=== PATIENT | female | born 1925 | race Caucasian/White ===

== ENCOUNTER 2016-08-20 02:17 | Inpatient (IN) | payer OTHER ==
[2016-08-20] VITALS (7 sets, daily range): BP systolic 120–142; BP diastolic 69–84; PULSE 99–145; TEMP 36.4–36.8; O2SAT 90–95; Ht 149.9 cm; Wt 62.0 kg
[~2016-08-20] VITALS: Ht 149.9 cm; Wt 62.0 kg
[~2016-08-20 02:17] MED LIST: CHOL100010 PO; CYAN250T PO; CYM/30 PO; MISCCAP69 PO; MULTTAB52 PO; PREG75CA PO; PRLSR20 PO; TRAM-10 PO
[2016-08-20] MEDS ORDERED: DILTIAZEM HCL 5 MG/ML 5 ML VIAL IV STA ×2 (02:40→09:38)
[2016-08-20 02:51] LABS: COMPLETE YES; EOS % 0.4 %; HEMATOCRIT 44.5 % (37-47); IG% 0.2 %; LYMPH % 17.6 %; LYMPH ABS # 0.98 K/uL (1.2-3.4); MEAN CELL VOLUME 102.1 fL (80-100); MEAN CORPUSCULAR HEMOGLOBIN 35.1 pg (25-34); MEAN CORPUSCULAR HGB CONC 34.4 g/dl (32-36); MEAN PLATELET VOLUME 10.5 fL (7.4-10.4); MONO % 3.4 %; NEUT % 78.4 %; PLATELET COUNT 202 K/uL (130-400); RED BLOOD COUNT 4.36 M/uL (4.2-5.4); WHITE BLOOD COUNT 5.58 K/uL (4.8-10.8)
--- NOTE | 2016-08-20 02:54 | EMERGENCY ROOM VISIT NOTE ---
History Report prepared by Axel: Juwan Monet Under the Supervision of: Dr. Noemi Obrien D.O. First contact with patient: 02:34 Chief Complaint: CARDIAC ASSESSMENT Stated Complaint: SICK IN BELLY,VOMITING History of Present Illness The patient is an 89 year old female who presents to the Emergency Room with complaints of persistent nausea that started at approximately 1800. The patient has experienced multiple episodes of vomiting and shortness of breath today. The patient denies abdominal pain. The patient was having trouble sleeping tonight secondary to her symptoms. The patient denies ever being diagnosed with atrial fibrillation and is not on any blood thinners. She does have a history of CHF for which she is on Lasix. Her baseline leg swelling has not increased, as per her . The patient follows up with Dr. Barbour, [employer]. Source of History: patient, spouse/significant other Onset: 1800 Position: other (GI) Quality: other (nausea) Timing: other (persistent) Associated Symptoms: + SOB, + vomiting, No abdominal pain Review of Systems See HPI for pertinent positives & negatives. A total of 10 systems reviewed and were otherwise negative. Past Medical & Surgical Medical Problems: (1) Acute upper GI bleed (2) Biatrial enlargement (3) Chronic atrial fibrillation (4) Cystocele repair (5) Diastolic heart failure (6) Diverticulosis (7) Hiatal hernia (8) HTN (hypertension) (9) Hypertension (10) Neuropathic arthropathy (11) Nonrheumatic mitral (valve) stenosis (12) Osteoarthritis (13) Osteoporosis (14) Paraesophageal hernia (15) Pulmonary HTN Surgical Problems: (1) H/O knee surgery (2) History of laminectomy (3) History of left shoulder replacement (4) History of partial hysterectomy (5) History of shoulder surgery (6) History of total bilateral knee replacement Family History Stroke Social History Smoking Status: Never Smoker Alcohol Use: none Marital Status: Housing Status: lives with significant other Occupation Status: retired Current/Historical Medications Scheduled Apoaequorin (Prevagen), 1 DROP PO UD Ascorbic Acid (Vitamin C), 1,000 MG PO DAILY Calcium Carbonate-Cholecalcife (Calcium 600+D3 600-800 mg-Unit), 1 TAB PO BID Cholecalciferol (Vitamin D3), 1 TAB PO DAILY Cyanocobalamin (Vitamin B-12), 250 MCG PO DAILY Digoxin (Digoxin), 0.125 MG PO DAILY Docusate Sodium (Colace), 1 CAP PO BID Duloxetine HCl (Cymbalta), 30 MG PO DAILY Isosorbide Mononitrate Ext Rel (Imdur Ext Rel), 30 MG PO QAM Misc Natural Products (Osteo Bi-Flex Joint Shiel), 1 TAB PO DAILY Multiple Vitamins W/ Minerals (Cerovite Senior), 1 TAB PO DAILY Multiple Vitamins W/ Minerals (Preservision Areds 2), 1 CAP PO DAILY Omeprazole (Prilosec), 20 MG PO DAILY Pregabalin (Lyrica), 75 MG PO BID Scheduled PRN Acetaminophen (Tylenol), 650 MG PO Q6 PRN for Pain Furosemide (Lasix), 20 MG PO DAILY PRN for cough,wt gain,edema Allergies Coded Allergies: Penicillins (Verified Allergy, Intermediate, SWELLS, 12/04/15) Sulfa Drugs (Verified Allergy, Intermediate, SWELLS, 12/04/15) Metronidazole (Verified Allergy, Mild, 12/04/15) Quinolones (Verified Allergy, Mild, 12/04/15) Alendronate (Verified Adverse Reaction, Mild, COUGH, 12/04/15) Physical Exam Vital Signs Date Time Temp Pulse Resp B/P Pulse Ox O2 Delivery O2 Flow Rate FiO2 08/20/16 06:21 145 08/20/16 06:02 102 21 123/98 96 Nasal Cannula 2.0 08/20/16 05:22 85 Room Air 08/20/16 05:22 95 Nasal Cannula 2.0 08/20/16 04:51 101 18 138/101 94 Room Air 08/20/16 02:54 103 18 121/87 95 Room Air 08/20/16 02:48 94 Room Air 08/20/16 02:44 119 18 149/131 94 Room Air 08/20/16 02:38 152 08/20/16 02:24 36.4 119 20 140/87 94 Room Air Physical Exam HEENT: Head - normocephalic and atraumatic Pupils are equal, round, and reactive to light. Extraocular eye muscles are intact, and sclera are anicteric. Nose - moist nasal mucosa without discharge. Mouth - moist buccal mucosa. Oropharynx is nonerythematous and there is no tonsillar exudate or edema noted. Neck: Supple; no JVD, nuchal rigidity, cervical lymphadenopathy. Heart: Irregularly irregular rhythm, tachycardic rate. There is a normal S1 and S2 with no murmurs, clicks, or gallops appreciated. Lungs: Clear to auscultation bilaterally with no wheezes, rales, or rhonchi. Abdomen: Soft, completely nontender, nondistended, with good bowel sounds. There are no palpable pulsatile masses or hepatosplenomegaly. There is no guarding, rigidity, or rebound noted. Extremities: No evidence of cyanosis, clubbing, or edema. There are easily palpable peripheral pulses. Skin: warm and dry with good turgor and no rashes. Medical Decision & Procedures ER Provider Diagnostic Interpretation: X-ray results as stated below per interpretation by me. CHEST ONE VIEW PORTABLE: Hiatal hernia, pulmonary vascular congestion. Laboratory Results 08/20/16 02:40 Red Blood Count 4.36, Mean Corpuscular Volume 102.1, Mean Corpuscular Hemoglobin 35.1, Mean Corpuscular Hemoglobin Concent 34.4, Mean Platelet Volume 10.5, Neutrophils (%) (Auto) 78.4, Lymphocytes (%) (Auto) 17.6, Monocytes (%) ( Auto) 3.4, Eosinophils (%) (Auto) 0.4, Basophils (%) (Auto) 0.0, Neutrophils # ( Auto) 4.38, Lymphocytes # (Auto) 0.98, Monocytes # (Auto) 0.19, Eosinophils # ( Auto) 0.02, Basophils # (Auto) 0.00 08/20/16 02:40 Test 08/20/16 02:40 08/20/16 03:45 08/20/16 05:42 White Blood Count 5.58 K/uL (4.8-10.8) Red Blood Count 4.36 M/uL (4.2-5.4) Hemoglobin 15.3 g/dL (12.0-16.0) Hematocrit 44.5 % (37-47) Mean Corpuscular Volume 102.1 fL (80-100) Mean Corpuscular Hemoglobin 35.1 pg (25-34) Mean Corpuscular Hemoglobin Concent 34.4 g/dl (32-36) Platelet Count 202 K/uL (130-400) Mean Platelet Volume 10.5 fL (7.4-10.4) Neutrophils (%) (Auto) 78.4 % Lymphocytes (%) (Auto) 17.6 % Monocytes (%) (Auto) 3.4 % Eosinophils (%) (Auto) 0.4 % Basophils (%) (Auto) 0.0 % Neutrophils # (Auto) 4.38 K/uL (1.4-6.5) Lymphocytes # (Auto) 0.98 K/uL (1.2-3.4) Monocytes # (Auto) 0.19 K/uL (0.11-0.59) Eosinophils # (Auto) 0.02 K/uL (0-0.5) Basophils # (Auto) 0.00 K/uL (0-0.2) RDW Standard Deviation 56.6 fL (36.4-46.3) RDW Coefficient of Variation 15.1 % (11.5-14.5) Immature Granulocyte % (Auto) 0.2 % Immature Granulocyte # (Auto) 0.01 K/uL (0.00-0.02) Prothrombin Time 11.3 SECONDS (9.0-12.0) Prothromb Time International Ratio 1.1 (0.9-1.1) Activated Partial Thromboplast Time 25.7 SECONDS (21.0-31.0) Partial Thromboplastin Ratio 1.0 Anion Gap 12.0 mmol/L (3-11) Est Creatinine Clear Calc Drug Dose 31.5 ml/min Estimated GFR () 58.3 Estimated GFR (Non- 50.3 BUN/Creatinine Ratio 28.4 (10-20) Calcium Level 9.9 mg/dl (8.5-10.1) Total Bilirubin 0.6 mg/dl (0.2-1) Direct Bilirubin 0.2 mg/dl (0-0.2) Aspartate Amino Transf (AST/SGOT) 24 U/L (15-37) Alanine Aminotransferase (ALT/SGPT) 25 U/L (12-78) Alkaline Phosphatase 103 U/L (45-117) Pro-B-Type Natriuretic Peptide 3723 pg/ml (0-1800) Total Protein 8.2 gm/dl (6.4-8.2) Albumin 4.0 gm/dl (3.4-5.0) Thyroid Stimulating Hormone (TSH) 1.980 uIu/ml (0.300-4.500) Gastric Fluid pH 4 Gastric Fluid Occult Blood POS (NEG) Total Creatine Kinase 66 U/L (26-192) Creatine Kinase MB 1.4 ng/ml (0.5-3.6) Creatine Kinase MB Ratio 2.1 (0-3.0) Troponin I < 0.015 ng/ml (0-0.045) Lipase 223 U/L (73-393) Laboratory results per my review. Medications Administered Medications (Trade) Dose Ordered Sig/Cynthia Route Start Time Stop Time Status Last Admin Dose Admin Diltiazem HCl (Cardizem Inj) 10 mg NOW STAT IV 08/20/16 02:40 08/20/16 02:41 DC 08/20/16 02:46 10 MG Ondansetron HCl 4 mg 4 mg NOW STAT IV 08/20/16 04:34 08/20/16 04:35 DC 08/20/16 04:52 4 MG Pantoprazole Sodium 80 mg/ Dextrose 120 ml @ 480 mls/hr ONE STAT IV 08/20/16 05:10 08/20/16 05:24 DC 08/20/16 05:23 480 MLS/HR Pantoprazole Sodium/Dextrose (Protonix Inj/D5 100ml) 100 ml @ 20 mls/hr Q5H IV 08/20/16 05:30 09/19/16 05:29 08/20/16 05:41 20 MLS/HR Procedure Medications administered include Cardizem IV, Zofran IV. ECG Indication: nausea, vomiting Rate (beats per minute): 128 Rhythm: atrial fibrillation (RVR) Findings: ST depression (inferior and lateral), other (RVR) Comparison ECG Date: 05 December 2015 Change: AFib with RVR is new compared to previous. ED Course 0240: Past medical records reviewed. The patient was evaluated in room B6. A complete history and physical exam was performed. A twelve-lead EKG was obtained. An IV lock was initiated and labs are drawn as above. The patient was observing the quality assurance monitor body and pulse oximeter. 0240: Cardizem 10 mg IV. A chest x-ray was performed. 0310: The patient's heart rate has come down to the 90s after Cardizem. 0335: When I went to check on the patient she had vomited a black stuff. She admits that her vomit earlier today was also black. 0338: [facility] The patient will be evaluated. 0408: NG tube in place. The patient is still putting out black stuff and is complaining of nausea. 0434: Zofran 4 mg IV. Medical Decision The patient is an 89 year old female who presents to the ED with nausea. Differential diagnosis includes ACS, cardiac dysrhythmia, acute DE, gastritis, GERD. Laboratory interpretation: Normal white count, stable H&H, BUN 28, creatinine 1 , glucose 163, TSH 1.9, BNP 3723, LFTs normal, cardiac enzymes negative, coagulation studies normal. Gastric occult positive. This is an 89-year-old female patient who developed nausea, weakness and diaphoresis since earlier this evening. The patient vitals revealed that her heart rate was greater than 140. Twelve-lead EKG revealed A. fib with RVR. The patient had initially denied any history of A. fib to me. The patient has A. fib with RVR and upper GI bleeding. She denies any history of GI bleeding. She is hemodynamically stable at this time. [facility] for further management. Consults Time Called: [phone] Consulting Physician: [facility] Returned Call: [phone]: [facility] The patient will be evaluated. Impression Primary Impression: Atrial fibrillation with RVR Additional Impression: GI bleeding Critical Care I have personally spent greater than 30 minutes of critical care time in the direct management of this patient. This includes bedside care, interpretation of diagnostic studies, and testing, discussion with consultants, patient, and family members, and other required patient management activities. This 30 minutes is in excess of all separately billable procedures. Scribe Attestation The scribe's documentation has been prepared under my direction and personally reviewed by me in its entirety. I confirm that the note above accurately reflects all work, treatment, procedures, and medical decision making performed by me. Departure Information Dispostion Being Evaluated By Hospitalist Referrals Brittni Echeverria D.O. (PCP) Patient Instructions My [facility] Problem Qualifiers
[2016-08-20 02:59] LABS: INR 1.1 (0.9-1.1); PROTHROMBIN TIME (PATIENT) 11.3 SECONDS (9.0-12.0)
[2016-08-20] MEDS ORDERED: APOA1CAP PO (03:15)
[2016-08-20] MEDS ORDERED: ISOS30TA3 PO (03:15)
[2016-08-20 03:18] LABS: ALT/SGPT 25 U/L (12-78); AST/SGOT 24 U/L (15-37); BLOOD UREA NITROGEN 28 mg/dl (7-18); BUN/CREATININE RATIO 28.4 (10-20); CALCIUM 9.9 mg/dl (8.5-10.1); CARBON DIOXIDE 31 mmol/L (21-32); CHLORIDE 101 mmol/L (98-107); GLUCOSE 163 mg/dl (70-99); POTASSIUM 3.7 mmol/L (3.5-5.1); SODIUM 144 mmol/L (136-145)
[2016-08-20] MEDS ORDERED: LNX125 PO (03:18)
[2016-08-20] MEDS ORDERED: DOCU-94 PO (03:18)
[2016-08-20] MEDS ORDERED: CALC-449 PO (03:18)
[2016-08-20] MEDS ORDERED: ASCO10003 PO (03:18)
[2016-08-20] MEDS ORDERED: MULT60CA PO (03:18)
[2016-08-20] MEDS ORDERED: FURO-85 PO (03:20)
[2016-08-20] MEDS ORDERED: CHOL1000 PO (03:21)
[2016-08-20] MEDS ORDERED: MISCTAB30 PO (03:21)
[2016-08-20] MEDS ORDERED: ACET-1311 PO (03:21)
[2016-08-20 03:23] LABS: ALKALINE PHOSPHATASE 103 U/L (45-117); CKMB/CK RATIO 2.2 (0-3.0)
[2016-08-20 03:59] LABS: GASTRIC OCCULT BLOOD POS (NEG); GASTRIC OCCULT BLOOD PH 4
[2016-08-20] MEDS ORDERED: ONDANSETRON INJ 2 MG/ML 2 ML VIAL IV STA (04:34)
[2016-08-20] MEDS ORDERED: ONDANSETRON INJ 2 MG/ML 2 ML VIAL IV PRN (05:00)
[2016-08-20] MEDS ORDERED: PANTOprazole INJ 80 MG in DEXTROSE 5% 100ML IV STA (05:10)
--- NOTE | 2016-08-20 05:27 | History and Physical ---
History & Physical Date & Time of Service: Aug 20, 2016 at 05:09 Chief Complaint: Sick In Belly,Vomiting Primary Care Physician: Brittni Echeverria D.O. History of Present Illness Source: patient, family 89 yo F with large paraesophageal hernia presents to the ER with acute bloody vomitus, abdominal pain and nausea that began acutely this everning while at rest. She also reports that along with the abdominal pain, which would precede the vomiting and felt "like a hurt" in the epigastric region, she would get some chest pain that radiated into her L arm. Then she would have a vomiting spell and then she would feel better and the chest pain would resolve. She denies a h/o chest pain and experienced no associated symptoms such as sweating or SOB. She is not very active at baseline, and therefore, cannot tell me if she feels more short of breath than usual. She has a h/o admission last November) for epigastric pain (without the bleeding) and was found to have the hernia mentioned above with a consult by Dr. Gu who recommended monitoring and/or elective repair as an outpatient based on her higher josh- operative risk. She denies any changes in her stools and states that she is constipated at baseline. She denies fevers, chills, headache, sore throat. She denies any alcohol use or NSAID use (including no ASA). She follows with Dr. Barbour for chronic atrial fibrillation and diastolic dysfunction with h/o heart failure in the past. Past Medical/Surgical History Medical Problems: (1) Biatrial enlargement Status: Chronic (2) Chronic atrial fibrillation Status: Chronic (3) Cystocele repair Status: Chronic (4) Diastolic heart failure Status: Chronic (5) Diverticulosis Status: Chronic (6) Hiatal hernia Status: Chronic (7) HTN (hypertension) Status: Chronic (8) Hypertension Status: Chronic (9) Neuropathic arthropathy Status: Chronic (10) Nonrheumatic mitral (valve) stenosis Status: Chronic (11) Osteoarthritis Status: Chronic (12) Osteoporosis Status: Chronic (13) Paraesophageal hernia Status: Chronic (14) Pulmonary HTN Status: Chronic Surgical Problems: (1) H/O knee surgery Status: Resolved (2) History of laminectomy Status: Chronic (3) History of left shoulder replacement Status: Chronic (4) History of partial hysterectomy Status: Chronic (5) History of shoulder surgery Status: Resolved (6) History of total bilateral knee replacement Status: Chronic Family History Stroke Social History Smoking Status: Never Smoker Smokeless Tobacco Use: No Alcohol Use: none Drug Use: none Marital Status: Housing status: lives with significant other Occupational Status: retired Immunizations History of Influenza Vaccine: Yes Influenza Vaccine Date: Apr 10, 2016 History of Tetanus Vaccine?: Yes Tetanus Immunization Date: May 05, 2008 History of Pneumococcal: Yes Pneumococcal Date: Jan 25, 2016 History of Hepatitis B Vaccine: No Multi-Drug Resistant Organisms History of MDRO: No Allergies Coded Allergies: Penicillins (Verified Allergy, Intermediate, SWELLS, 12/04/15) Sulfa Drugs (Verified Allergy, Intermediate, SWELLS, 12/04/15) Metronidazole (Verified Allergy, Mild, 12/04/15) Quinolones (Verified Allergy, Mild, 12/04/15) Alendronate (Verified Adverse Reaction, Mild, COUGH, 12/04/15) Home Medications Scheduled Apoaequorin (Prevagen), 1 DROP PO UD Ascorbic Acid (Vitamin C), 1,000 MG PO DAILY Calcium Carbonate-Cholecalcife (Calcium 600+D3 600-800 mg-Unit), 1 TAB PO BID Cholecalciferol (Vitamin D3), 1 TAB PO DAILY Cyanocobalamin (Vitamin B-12), 250 MCG PO DAILY Digoxin (Digoxin), 0.125 MG PO DAILY Docusate Sodium (Colace), 1 CAP PO BID Duloxetine HCl (Cymbalta), 30 MG PO DAILY Isosorbide Mononitrate Ext Rel (Imdur Ext Rel), 30 MG PO QAM Misc Natural Products (Osteo Bi-Flex Joint Shiel), 1 TAB PO DAILY Multiple Vitamins W/ Minerals (Cerovite Senior), 1 TAB PO DAILY Multiple Vitamins W/ Minerals (Preservision Areds 2), 1 CAP PO DAILY Omeprazole (Prilosec), 20 MG PO DAILY Pregabalin (Lyrica), 75 MG PO BID Scheduled PRN Acetaminophen (Tylenol), 650 MG PO Q6 PRN for Pain Furosemide (Lasix), 20 MG PO DAILY PRN for cough,wt gain,edema Review of Systems All systems were reviewed and negative except as indicated in the HPI Physical Exam Vital Signs Date Time Temp Pulse Resp B/P Pulse Ox O2 Delivery O2 Flow Rate FiO2 2/28/17 04:51 101 18 138/101 94 Room Air 08/20/16 02:54 103 18 121/87 95 Room Air 08/20/16 02:48 94 Room Air 08/20/16 02:44 119 18 149/131 94 Room Air 08/20/16 02:38 152 08/20/16 02:24 36.4 119 20 140/87 94 Room Air GEN: WNWD, in mild distress, alert and appropriate, no increased work of breathing. NGT in place with dark bloody vomitus in suction canister. HEENT: NC/AT, PERRL, normal sclerae CARDIO: tachy, irreg rate, S1/2 heard without m/g/r LUNGS: CTA bilaterally, no crackles, rales or wheezes, good diaphragmatic excursion ABD: soft, TTP in epigastric region, non-distended, no rebound or guarding, +BS EXTREMITY: RP and DP palpable 2+ bilat, no LE swelling or edema, extremities are warm and well-perfused NEURO: CN 2-12 grossly intact, sensation intact throughout MUSC: moves all extremities equally, appears generally weak, no gross focal deficits SKIN: warm and dry Diagnostics Laboratory Results Results Past 24 Hours Test 08/20/16 02:40 08/20/16 03:45 Range/Units White Blood Count 5.58 4.8-10.8 K/uL Red Blood Count 4.36 4.2-5.4 M/uL Hemoglobin 15.3 12.0-16.0 g/dL Hematocrit 44.5 37-47 % Mean Corpuscular Volume 102.1 80-100 fL Mean Corpuscular Hemoglobin 35.1 25-34 pg Mean Corpuscular Hemoglobin Concent 34.4 32-36 g/dl Platelet Count 202 130-400 K/uL Mean Platelet Volume 10.5 7.4-10.4 fL Neutrophils (%) (Auto) 78.4 % Lymphocytes (%) (Auto) 17.6 % Monocytes (%) (Auto) 3.4 % Eosinophils (%) (Auto) 0.4 % Basophils (%) (Auto) 0.0 % Neutrophils # (Auto) 4.38 1.4-6.5 K/uL Lymphocytes # (Auto) 0.98 1.2-3.4 K/uL Monocytes # (Auto) 0.19 0.11-0.59 K/uL Eosinophils # (Auto) 0.02 0-0.5 K/uL Basophils # (Auto) 0.00 0-0.2 K/uL RDW Standard Deviation 56.6 36.4-46.3 fL RDW Coefficient of Variation 15.1 11.5-14.5 % Immature Granulocyte % (Auto) 0.2 % Immature Granulocyte # (Auto) 0.01 0.00-0.02 K/uL Prothrombin Time 11.3 9.0-12.0 SECONDS Prothromb Time International Ratio 1.1 0.9-1.1 Activated Partial Thromboplast Time 25.7 21.0-31.0 SECONDS Partial Thromboplastin Ratio 1.0 Sodium Level 144 136-145 mmol/L Potassium Level 3.7 3.5-5.1 mmol/L Chloride Level 101 98-107 mmol/L Carbon Dioxide Level 31 21-32 mmol/L Anion Gap 12.0 3-11 mmol/L Blood Urea Nitrogen 28 7-18 mg/dl Creatinine 1.00 0.60-1.20 mg/dl Est Creatinine Clear Calc Drug Dose 31.5 ml/min Estimated GFR () 58.3 Estimated GFR (Non- 50.3 BUN/Creatinine Ratio 28.4 10-20 Random Glucose 163 70-99 mg/dl Calcium Level 9.9 8.5-10.1 mg/dl Total Bilirubin 0.6 0.2-1 mg/dl Direct Bilirubin 0.2 0-0.2 mg/dl Aspartate Amino Transf (AST/SGOT) 24 15-37 U/L Alanine Aminotransferase (ALT/SGPT) 25 12-78 U/L Alkaline Phosphatase 103 45-117 U/L Total Creatine Kinase 81 26-192 U/L Creatine Kinase MB 1.8 0.5-3.6 ng/ml Creatine Kinase MB Ratio 2.2 0-3.0 Troponin I < 0.015 0-0.045 ng/ml Pro-B-Type Natriuretic Peptide 3723 0-1800 pg/ml Total Protein 8.2 6.4-8.2 gm/dl Albumin 4.0 3.4-5.0 gm/dl Thyroid Stimulating Hormone (TSH) 1.980 0.300-4.500 uIu/ml Gastric Fluid pH 4 Gastric Fluid Occult Blood POS NEG CXR normal EKG afib with RVR Impression Assessment and Plan 89 yoF with chronic atrial fibrillation presents to the ER with RVR, chest pain , abdominal pain and subsequent dark bloody vomitus. 1. UGIB-likley 2/2 the large paraesophageal hernia or the hiatal hernia that has been problematic for her since last year. Pt not on NSAIDs and doesn't use ETOH. Denies any h/o GI bleed in the past. PPI drip, IVF, two large bore IVs, consult GI service. Type and Cross, trend H/H q6h 2. Atrial fibrillation with RVR-likely 2/2 above process.-Cardizem given in ER. Pt currently NPO so will control the rate with IV drugs for now. 3. Chest pain-rule out ACS, however, more likely pain 2/2 the paraesophageal hernias. ASA contraindicated. Statin is PO and patient is NPO. Trend enyzmes. Consult Cardiology. 4. Abdominal pain 2/2 all of the above. 5. Valvular heart disease 6. Diastolic heart failure-chronic 7. Peripheral neuropathy DVT proph: SCDs Full Code Dispo-to tele floor Stephanie Beard DO Hospitalist Level of Care Telemetry Resuscitation Status FULL RESUSCITATION VTE Prophylaxis VTE Risk Assessment Done? Y/N: Yes Risk Level: Moderate Given or contraindicated: SCD's, Contraindicated
[2016-08-20] MEDS: PANTOprazole INJ 40 MG in DEXTROSE 5% 100ML IV SCH ×4 (05:41→20:25)
[2016-08-20 06:30] LABS: CKMB/CK RATIO 2.1 (0-3.0)
--- NOTE | 2016-08-20 07:28 | DIAGNOSTIC IMAGING REPORT ---
SINGLE VIEW CHEST CLINICAL HISTORY: Nausea. Atrial fibrillation. FINDINGS: An AP, portable, upright chest radiograph is compared to study dated 12/05/2015. The examination is degraded by portable technique and patient rotation. The heart is enlarged and there is atherosclerotic calcification of the thoracic aorta. The mitral annulus is densely calcified. There is pulmonary vascular congestion with mild interstitial edema. Trace pleural effusions are suspected and there is bibasilar atelectasis. No pneumothorax is seen. The skeletal structures are osteopenic. A left shoulder arthroplasty is in place. Advanced arthritic change and chronic deformity is seen in the right shoulder. Advanced degenerative change is also seen in the thoracic spine. Lumbar fusion hardware is partially imaged. There are healed bilateral rib fractures. IMPRESSION: 1. Cardiomegaly with evidence of congestive failure and mild interstitial edema. 2. Suspect trace pleural effusions. Electronically signed by: Maciej Bustillo M.D. 08/20/2016 7:27 AM Dictated Date/Time: 08/20/2016 7:25 AM
[2016-08-20] MEDS: DULOXETINE (CYMBALTA) 30 MG CAP PO SCH (09:00)
[2016-08-20] MEDS: ISOSORBIDE MONONITRATE 30 MG TABCR PO SCH (09:00)
--- NOTE | 2016-08-20 09:14 | Gastrointestinal Consultation ---
Gastrointestinal Consultation Date of Consultation: Aug 20, 2016 Consulting Physician: Jacky Reason for Consultation: GI bleed History of Present Illness Patient is a 89 year old female with past medical history significant for ostearthritis, diverticulosis, pulmonary hypertension, biatrial enlargement, cystocele repair, HTN, gastric outlet obstruction, AFIB and diastolic heart failure. She presented to the ED with abdominal pain and nausea. She reports that last night prior to dinner she was having vague abdominal symptoms and was not feeling well. She was able to eat dinner (crab cake, bread). A few minutes after finishing dinner she had increasing in nausea with associated emesis. is at bedside and reports that the emesis was coffee ground in appearance. She proceeded to have a few more episodes of coffee ground emesis before coming to the ED. At the time of the emesis there was epigastric pain and radiating to her pain and down her arm. These symptoms spontaneously resolved after each bout of emesis. During exam, she has a NG in place. She is no longer experiencing any abdominal symptoms, nausea and vomiting. She denies fever, chills, chest pain, SOB. No ongoing NSAID use. Is on daily PPI as an outpatient EGD 12/05/15: A large paraesophageal hernia was found. The proximal extent of the gastric folds (end of tubular esophagus) was 30 cm from the incisors. The mucosa appeared very normal.The entire examined stomach was normal, although a significant portion was located within the chest. No signs of ischemia.The examined duodenum was normal. Past Medical/Surgical History Medical Problems: (1) Atrial fibrillation with rapid ventricular response Status: Acute (2) Atrial fibrillation with RVR Status: Acute (3) GI bleeding Status: Acute (4) Hypertension Status: Chronic (5) New onset a-fib Status: Acute Family History Stroke Social History Smoking Status: Never Smoker Alcohol Use: none Drug Use: none Marital Status: Housing Status: lives with significant other Occupation Status: retired Allergies Coded Allergies: Penicillins (Verified Allergy, Intermediate, SWELLS, 12/04/15) Sulfa Antibiotics (Verified Allergy, Intermediate, SWELLING, 08/20/16) Metronidazole (Verified Allergy, Mild, 12/04/15) Quinolones (Verified Allergy, Mild, 12/04/15) Alendronate (Verified Adverse Reaction, Mild, COUGH, 12/04/15) Current Medications Home Meds and Scripts Medications Dose Route/Sig Max Daily Dose Days Date Category Tylenol (Acetaminophen) 325 Mg Tab 650 Mg PO Q6 PRN 08/20/16 Reported Vitamin D3 (Cholecalciferol) 1,000 Unit Tab 1 Tab PO DAILY 90 08/20/16 Reported Osteo Bi-Flex Joint Shiel (Misc Natural Products) 1 Tab Tab 1 Tab PO DAILY 08/20/16 Reported Lasix (Furosemide) 20 Mg Tab 20 Mg PO DAILY PRN 08/20/16 Reported Vitamin C (Ascorbic Acid) 1,000 Mg Tab 1,000 Mg PO DAILY 08/20/16 Reported Calcium 600+D3 600-800 mg-Unit (Calcium Carbonate-Cholecalcife) 1 Tab Tab 1 Tab PO BID 08/20/16 Reported Preservision Areds 2 (Multiple Vitamins W/ Minerals) 1 Cap Cap 1 Cap PO DAILY 08/20/16 Reported Digoxin 0.125 Mg Tab 0.125 Mg PO DAILY 08/20/16 Reported Colace (Docusate Sodium) 100 Mg Cap 1 Cap PO BID 30 08/20/16 Reported Prevagen (Apoaequorin) 10 Mg Cap 1 Drop PO UD 08/20/16 Reported Imdur Ext Rel (Isosorbide Mononitrate) 30 Mg Ertab 30 Mg PO QAM 08/20/16 Reported Cerovite Senior (Multiple Vitamins W/ Minerals) 1 Tab Tab 1 Tab PO DAILY 10/30/15 Reported Prilosec (Omeprazole) 20 Mg Capcr 20 Mg PO DAILY 10/30/15 Reported Cymbalta (Duloxetine HCl) 30 Mg Cap 30 Mg PO DAILY 10/30/15 Reported Lyrica (Pregabalin) 75 Mg Cap 75 Mg PO BID 10/30/15 Reported Vitamin B-12 (Cyanocobalamin) 250 Mcg Tab 250 Mcg PO DAILY 10/30/15 Reported Review of Systems Constitutional: No chills, No fever Respiratory: No cough, No shortness of breath Cardiac: No chest pain, No edema Abdomen: + GI bleeding, No constipation, No diarrhea, No nausea, No pain, No vomiting Physical Exam Date Time Temp Pulse Resp B/P Pulse Ox O2 Delivery O2 Flow Rate FiO2 08/20/16 08:14 138 20 125/96 96 08/20/16 08:05 134 20 125/96 96 Room Air 08/20/16 06:21 145 08/20/16 06:02 102 21 123/98 96 Nasal Cannula 2.0 08/20/16 05:22 85 Room Air 08/20/16 05:22 95 Nasal Cannula 2.0 08/20/16 04:51 101 18 138/101 94 Room Air 08/20/16 02:54 103 18 121/87 95 Room Air 08/20/16 02:48 94 Room Air 08/20/16 02:44 119 18 149/131 94 Room Air 08/20/16 02:38 152 08/20/16 02:24 36.4 119 20 140/87 94 Room Air General Appearance: no apparent distress Eyes: PERRL, EOMI ENT: hearing grossly normal Neck: supple, trachea midline Respiratory/Chest: lungs clear, normal breath sounds, no respiratory distress Cardiovascular: regular rate, rhythm, no edema, no gallop, no JVD Abdomen: normal bowel sounds, non tender, soft, no organomegaly, no pulsatile mass Neurologic/Psych: alert, normal mood/affect, oriented x 3 Skin: normal color, no jaundice Laboratory Results Last 24 Hours Test 08/20/16 02:40 08/20/16 03:45 08/20/16 05:42 08/20/16 08:16 White Blood Count 5.58 K/uL Red Blood Count 4.36 M/uL Hemoglobin 15.3 g/dL Hematocrit 44.5 % Mean Corpuscular Volume 102.1 fL Mean Corpuscular Hemoglobin 35.1 pg Mean Corpuscular Hemoglobin Concent 34.4 g/dl Platelet Count 202 K/uL Mean Platelet Volume 10.5 fL Neutrophils (%) (Auto) 78.4 % Lymphocytes (%) (Auto) 17.6 % Monocytes (%) (Auto) 3.4 % Eosinophils (%) (Auto) 0.4 % Basophils (%) (Auto) 0.0 % Neutrophils # (Auto) 4.38 K/uL Lymphocytes # (Auto) 0.98 K/uL Monocytes # (Auto) 0.19 K/uL Eosinophils # (Auto) 0.02 K/uL Basophils # (Auto) 0.00 K/uL RDW Standard Deviation 56.6 fL RDW Coefficient of Variation 15.1 % Immature Granulocyte % (Auto) 0.2 % Immature Granulocyte # (Auto) 0.01 K/uL Prothrombin Time 11.3 SECONDS Prothromb Time International Ratio 1.1 Activated Partial Thromboplast Time 25.7 SECONDS Partial Thromboplastin Ratio 1.0 Sodium Level 144 mmol/L Potassium Level 3.7 mmol/L Chloride Level 101 mmol/L Carbon Dioxide Level 31 mmol/L Anion Gap 12.0 mmol/L Blood Urea Nitrogen 28 mg/dl Creatinine 1.00 mg/dl Est Creatinine Clear Calc Drug Dose 31.5 ml/min Estimated GFR () 58.3 Estimated GFR (Non- 50.3 BUN/Creatinine Ratio 28.4 Random Glucose 163 mg/dl Calcium Level 9.9 mg/dl Total Bilirubin 0.6 mg/dl Direct Bilirubin 0.2 mg/dl Aspartate Amino Transf (AST/SGOT) 24 U/L Alanine Aminotransferase (ALT/SGPT) 25 U/L Alkaline Phosphatase 103 U/L Total Creatine Kinase 81 U/L 66 U/L Creatine Kinase MB 1.8 ng/ml 1.4 ng/ml Creatine Kinase MB Ratio 2.2 2.1 Troponin I < 0.015 ng/ml < 0.015 ng/ml Pro-B-Type Natriuretic Peptide 3723 pg/ml Total Protein 8.2 gm/dl Albumin 4.0 gm/dl Thyroid Stimulating Hormone (TSH) 1.980 uIu/ml Gastric Fluid pH 4 Gastric Fluid Occult Blood POS Lipase 223 U/L Test 08/20/16 09:00 Impression Patient is a 89 year old female with paraesophageal hernia who presented to the ED with nausea, abdominal pain and coffee ground emesis. Differentials include gastritis, esophagitis, [place] ulcers ETC Plan NPO Continue Protonix 40 mg twice daily I have seen and evaluated the patient. She presented with several days of epigastric discomfort culminating in coffee-ground emesis yesterday evening. The patient has a history of intrathoracic stomach and is previously been evaluated by . She notes that since her last admission she been doing well until overeating earlier this week. She notes that her symptoms are much improved since admission and placement of the NG tube. 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 This is the most likely etiology to her coffee-ground emesis and recurrent symptoms. As there has been limited drop in her hematocrit and her symptoms are improved I 'm not certain if repeat upper endoscopy is needed at this time. We will reevaluate in the morning to determine if this should be performed. I would suggest that the patient be seen by cardiothoracic surgery to determine if surgical intervention is possible at this hospital as this is the likely etiology to her recurrent symptoms and will likely progress. Recommendations Nothing by mouth Protonix 40 mg twice daily Cardiothoracic consultation Will consider upper endoscopy if felt needed by cardiothoracic surgery or if there is a significant decline in her hematocrit during the hospitalization.
[2016-08-20] MEDS ORDERED: NSS + 20MEQ KCL 1000ML 1,000 ML IV SCH (09:25)
[2016-08-20] MEDS: PREGABALIN 75 MG CAP PO SCH ×2 (09:30→20:39)
[2016-08-20 09:38] LABS: HEMATOCRIT 41.6 % (37-47)
[2016-08-20] MEDS ORDERED: DILTIAZEM HCL 5 MG/ML 5 ML VIAL ONE (09:53)
--- NOTE | 2016-08-20 09:57 | Progress Note ---
Medicine Progress Note Date & Time of Visit: Aug 20, 2016 at 09:51. Subjective patient seen resting in bed, comfortable A fib in RVR HR 120s asymptomatic denies chest pain, dyspnea, dizziness, palpitations no abdominal pain, nausea tolerating NG tube denies other symptoms Objective Last 8 Hrs Date Time Temp Pulse Resp B/P Pulse Ox O2 Delivery O2 Flow Rate FiO2 08/20/16 09:11 36.4 121 18 120/79 95 Nasal Cannula 2.0 08/20/16 08:57 36.4 145 18 120/79 95 Nasal Cannula 2.0 08/20/16 08:14 138 20 125/96 96 08/20/16 08:05 134 20 125/96 96 Room Air 08/20/16 06:21 145 08/20/16 06:02 102 21 123/98 96 Nasal Cannula 2.0 08/20/16 05:22 85 Room Air 08/20/16 05:22 95 Nasal Cannula 2.0 08/20/16 04:51 101 18 138/101 94 Room Air 08/20/16 02:54 103 18 121/87 95 Room Air 08/20/16 02:48 94 Room Air 08/20/16 02:44 119 18 149/131 94 Room Air 08/20/16 02:38 152 08/20/16 02:24 36.4 119 20 140/87 94 Room Air Physical Exam: General- oriented x 3, not in distress Head- atraumatic Eyes- anicteric ENT- oropharynx clear Neck- supple, no JVD, no adenopath Lungs- mild rales bilateral bases, no wheezing Heart- tachycardic, irregularly irregular rhythm; no murmurs Abdomen- normal bowel sounds, non distended, soft, nontender Extremities- no pretibial edema, no calf tenderness Neuro- alert, oriented x 3; no gross deficits Skin- warm & dry Laboratory Results: Last 24 Hours Test 08/20/16 02:40 08/20/16 03:45 08/20/16 05:42 08/20/16 08:16 White Blood Count 5.58 K/uL Red Blood Count 4.36 M/uL Hemoglobin 15.3 g/dL Hematocrit 44.5 % Mean Corpuscular Volume 102.1 fL Mean Corpuscular Hemoglobin 35.1 pg Mean Corpuscular Hemoglobin Concent 34.4 g/dl Platelet Count 202 K/uL Mean Platelet Volume 10.5 fL Neutrophils (%) (Auto) 78.4 % Lymphocytes (%) (Auto) 17.6 % Monocytes (%) (Auto) 3.4 % Eosinophils (%) (Auto) 0.4 % Basophils (%) (Auto) 0.0 % Neutrophils # (Auto) 4.38 K/uL Lymphocytes # (Auto) 0.98 K/uL Monocytes # (Auto) 0.19 K/uL Eosinophils # (Auto) 0.02 K/uL Basophils # (Auto) 0.00 K/uL RDW Standard Deviation 56.6 fL RDW Coefficient of Variation 15.1 % Immature Granulocyte % (Auto) 0.2 % Immature Granulocyte # (Auto) 0.01 K/uL Prothrombin Time 11.3 SECONDS Prothromb Time International Ratio 1.1 Activated Partial Thromboplast Time 25.7 SECONDS Partial Thromboplastin Ratio 1.0 Sodium Level 144 mmol/L Potassium Level 3.7 mmol/L Chloride Level 101 mmol/L Carbon Dioxide Level 31 mmol/L Anion Gap 12.0 mmol/L Blood Urea Nitrogen 28 mg/dl Creatinine 1.00 mg/dl Est Creatinine Clear Calc Drug Dose 31.5 ml/min Estimated GFR () 58.3 Estimated GFR (Non- 50.3 BUN/Creatinine Ratio 28.4 Random Glucose 163 mg/dl Calcium Level 9.9 mg/dl Total Bilirubin 0.6 mg/dl Direct Bilirubin 0.2 mg/dl Aspartate Amino Transf (AST/SGOT) 24 U/L Alanine Aminotransferase (ALT/SGPT) 25 U/L Alkaline Phosphatase 103 U/L Total Creatine Kinase 81 U/L 66 U/L Creatine Kinase MB 1.8 ng/ml 1.4 ng/ml Creatine Kinase MB Ratio 2.2 2.1 Troponin I < 0.015 ng/ml < 0.015 ng/ml Pro-B-Type Natriuretic Peptide 3723 pg/ml Total Protein 8.2 gm/dl Albumin 4.0 gm/dl Thyroid Stimulating Hormone (TSH) 1.980 uIu/ml Gastric Fluid pH 4 Gastric Fluid Occult Blood POS Lipase 223 U/L Test 08/20/16 09:15 08/20/16 09:30 Hemoglobin 14.1 g/dL Hematocrit 41.6 % Assessment & Plan 89 yoF with CHF Diastolic Type, A fib not on anticoagulation, HTN, presents to the ER with RVR, chest pain, abdominal pain and subsequent dark bloody vomitus. POSSIBLE UPPER GI BLEED IN THE SETTING OF PARAESOPHAGEAL AND HIATAL HERNIA - BP stable so far Hg being monitored - Protonix Drip NPO - GI consulted: for EGD today appreciate the recommendations CHRONIC ATRIAL FIBRILLATION, IN RVR - usually on Digoxin not on anticoagulation - asymptomatic, Bp stable - another Diltiazem 10mg IV dose ordered - Music Coordinator consulted CHEST PAIN R/O ACS - 2nd cardiac markers negative CHRONIC DIASTOLIC CHF - compensated monitor DVT proph: SCDs Dispo Pending Current Inpatient Medications: Current Inpatient Medications Medications (Trade) Dose Ordered Sig/Cynthia Route Start Time Stop Time Status Last Admin Dose Admin Ondansetron HCl (Zofran Inj) 4 mg Q6H PRN IV 08/20/16 05:00 09/19/16 04:59 Future hold Digoxin (Lanoxin Tab) 0.125 mg DAILY@1600 PO 08/20/16 16:00 09/19/16 15:59 Duloxetine HCl (Cymbalta Cap) 30 mg DAILY PO 08/20/16 09:00 09/19/16 08:59 Isosorbide Mononitrate (Imdur Ext Rel Tab) 30 mg QAM PO 08/20/16 09:00 09/19/16 08:59 Pregabalin 75 mg 75 mg BID PO 08/20/16 09:00 09/19/16 08:59 Pantoprazole Sodium 40 mg/ Dextrose 100 ml @ 20 mls/hr Q5H IV 08/20/16 05:30 09/19/16 05:29 08/20/16 05:41 20 MLS/HR Potassium Chloride/Sodium Chloride (Nss + 20meq KCl 1000ml) 1,000 ml @ 100 mls/hr Q10H IV 08/20/16 09:25 08/20/16 19:24 Diltiazem HCl (Cardizem Inj) 10 mg NOW STAT IV 08/20/16 09:38 08/20/16 09:39 UNV
[2016-08-20] MEDS ORDERED: METOPROLOL TARTRATE 1 MG/ML VIAL IV STA (10:07)
[2016-08-20 10:12] LABS: URINE APPEARANCE CLOUDY (CLEAR); URINE BILIRUBIN NEG (NEG); URINE COLOR YELLOW; URINE EPITHELIAL CELL AUTO 0-5 /lpf (0-5); URINE NITRITE NEG (NEG); URINE PH 7.5 (4.5-7.5); URINE SPECIFIC GRAVITY 1.015 (1.000-1.030); UROBILINOGEN NEG (NEG)
[2016-08-20] MEDS ORDERED: METOPROLOL TARTRATE 1 MG/ML VIAL ONE (10:14)
[2016-08-20] MEDS ORDERED: DILTIAZEM HCL INJ 10 MG in SYRINGE 0 ML IV ONE (10:30)
[2016-08-20 10:37] LABS: MANUAL MICROSCOPIC REQUIRED? NO; REVIEW REQ? NO; SULFASALICYLIC ACID NEG (NEG)
--- NOTE | 2016-08-20 10:53 | Progress Note ---
Progress Note Date of Service Aug 20, 2016. Progress Note The case was cancelled due to an EKG of A-Fib with a rapid ventricular response and ST depressions.
--- NOTE | 2016-08-20 11:26 | CARDIOLOGY CONSULTATION ---
DATE OF CONSULTATION: 08/20/2016 The patient seen and examined on 08/20/2016. REFERRING PHYSICIAN: Dr. Beard. INDICATIONS: Atrial fibrillation with elevated ventricular response rate. HISTORY OF PRESENT ILLNESS: The patient is an 89-year-old female whose past medical history is notable for large paraesophageal hernia with intermittent gastric outflow obstruction. History of chronic atrial fibrillation, past diastolic heart failure, hypertension, who presented to the Emergency Room on date of admission 08/20/2016. Noted that she began having symptoms of abdominal pain and nausea after excessive "eating over the weekend." Symptoms were described as severe pain in the epigastric area with associated nausea and bloody vomitus. On presentation to the Emergency Room, she was found to be in her chronic atrial fibrillation, though with elevated ventricular response rate. She did receive a single dose of IV diltiazem in the ER with slowing of heart rate. She is referred now for further management with patient in atrial fibrillation, rates 110-125. She anticipates EGD later today for evaluation of paraesophageal hernia and emesis. Initial cardiac enzymes are negative. She is currently comfortable. Notes no chest pain or discomfort. Notes no chest pain, but did have abdominal pain as described. Notes no fevers, chills or productive cough. Atrial fibrillation is of a relatively recent description with rates controlled with low dose digoxin. She denies any bradyarrhythmias, syncope or near syncope. Notes no unexplained fevers or infections. The patient attended by family members who notes she did have a "big weekend of multiple meals" well beyond her usual intake. She has not been aware of any dark black stools or blood in the stools. Notes no headache or visual changes. REVIEW OF SYSTEMS: Otherwise negative. ALLERGIES: ALENDRONATE, METRONIDAZOLE, PENICILLIN, QUINOLONES AND SULFA. MEDICATIONS PRIOR TO HOSPITALIZATION: Vitamin C 1000 mg p.o. every day, calcium carbonate 1 tablet b.i.d., vitamin D3 of 1000 units every day, vitamin B12 of 250 mcg p.o. every day, digoxin 0.125 mg p.o. every day, Cymbalta 30 mg p.o. daily, furosemide 20 mg daily p.r.n. edema, isosorbide mononitrate 30 mg p.o. day, multivitamin per day, omeprazole 20 mg p.o. every day, Lyrica 75 mg b.i.d. PAST SURGICAL HISTORY: Notable for prior knee surgeries, prior laminectomy, left shoulder replacement, hysterectomy, bilateral total knee replacements. FAMILY HISTORY: Positive for stroke. SOCIAL HISTORY: The patient is a nonsmoker, nondrinker. PHYSICAL EXAMINATION: VITAL SIGNS: On current examination, heart rate is 120, blood pressure is 120/79. O2 saturations are 95% on 2 liters. She is currently comfortable without complaint. NG tube is in place. HEENT: Normocephalic, atraumatic. NECK: Thin. There is no distinct jugular venous distention. LUNGS: Generally clear to auscultation. CARDIOVASCULAR: Irregular, irregular with rapid ventricular response rate. There is no S3 gallop. ABDOMEN: Soft. There is minimal upper epigastric tenderness. There is no rebound or guarding. EXTREMITIES: Without cyanosis or clubbing. There is no peripheral edema. DATA: EKG on presentation reveals atrial fibrillation with rapid ventricular response, rate 128, inferolateral nonspecific ST segment changes. LABORATORY STUDIES: White cell count is 5.8, hemoglobin is 14.1. Sodium is potassium 3.7, chloride is 101, bicarbonate is 31, BUN is 28, creatinine is 1.0, troponin I on 2 serial testings is less than 0.015. BNP is mildly elevated at 37/23. TSH is 1.98. Chest x-ray reveals mild increase in interstitial markings and cardiomegaly. Echocardiogram per last review at [facility] was performed in November of 2015, which demonstrated moderate left ventricular hypertrophy, normal left ventricular systolic function, mild aortic stenosis, mild aortic insufficiency. IMPRESSION: An 89-year-old female with complex history of large paraesophageal hernia with intermittent gastric outlet obstruction, presents now with abdominal complaints and symptoms of emesis, possible hematemesis. She has a history of atrial fibrillation and rates are significantly elevated with acute distressors. PLAN: Will add IV metoprolol to regimen. The patient remains a poor anticoagulation candidate. Will continue oral digoxin when able. Use IV metoprolol for rate control. Echocardiogram will be ordered to reassess LV function and valvular structures. X-ray does show mild increase in interstitial markings, though rate is likely driving this issue. No signs of acute myocardial ischemia at this time. Exam does not reflect acute volume overload. Suspect a component of diastolic heart failure though would not administer diuretics at this time given n.p.o. status and past history of difficulties with hypotension and association with such. Will follow the patient as clinical course proceeds. Agree with EGD later today. MTDD
[2016-08-20] MEDS ORDERED: METOPROLOL TARTRATE 1 MG/ML VIAL IV. SCH (12:00)
[2016-08-20 12:33] LABS: CKMB/CK RATIO 2.6 (0-3.0)
[2016-08-20] MEDS: DIGOXIN 0.125 MG TAB PO SCH (15:35)
[2016-08-20] MEDS ORDERED: NURSING VERBAL MED ORDER ONE (15:45)
--- NOTE | 2016-08-20 16:15 | ECHOCARDIOGRAM REPORT ---
*NOTICE TO RECEIVING DEMOCRAT AGENCY This information is strictly Confidential and protected under [place] law. [place] law prohibits you from making any further disclosure of this information unless further disclosure is expressly permitted by the written consent of the person to whom it pertains or is authorized by law. A general authorization for the release of medical or other information is not sufficient for this purpose. Hospital accepts no responsibility if the information is made available to any other person, INCLUDING THE PATIENT. Interpretation Summary * Name: BONY [id number] Study Date: 08/20/2016 03:05 PM BP: 117/74 mmHg * Patient Location: [facility]\S\[id number] HR: 107 * : 1925 (M/d/yyyy) Gender: Female Height: 59 in * Age: 89 yrs Ethnicity: [place] Weight: 140 lb * Ordering Physician: Galen Diez * Referring Physician: Self, Referred * Performed By: Jenny Osman RDCS * * Reason For Study: AFIB * BSA: 1.6 m2 * History: AFIB * The study was technically adequate. * Compared to prior study, changes are noted. * -- Conclusions -- * The rhythm is atrial fibrillation with rapid ventricular response. * Ejection Fraction = 50-55%. * The left atrium is severely dilated. * The aortic valve is moderately calcified. * Mild valvular aortic stenosis. * There is severe mitral annular calcification. * There is mild mitral regurgitation. * There is severe tricuspid regurgitation. * Right ventricular systolic pressure is elevated at 40-50mmHg. Procedure Details * A complete two-dimensional transthoracic echocardiogram was performed (2D, M-mode, Doppler and color flow Doppler). Left Ventricle * The left ventricle is normal in size. * The rhythm is atrial fibrillation with rapid ventricular response. * There is mild concentric left ventricular hypertrophy. * Ejection Fraction = 50-55%. * Left ventricular systolic function is normal. * The left ventricular wall motion is normal. Right Ventricle * The right ventricle is normal size. * The right ventricular systolic function is normal as assessed by tricuspid annular plane systolic excursion (TAPSE) (normal >1.5 cm). Atria * The left atrium is severely dilated. * The right atrium is mildly dilated. * There is no evidence of atrial septal defect, but resolution does not allow assessment for a patent foramen ovale. Mitral Valve * There is severe mitral annular calcification. * There is no mitral valve stenosis. * There is mild mitral regurgitation. Tricuspid Valve * The tricuspid valve is normal. * There is no tricuspid stenosis. * There is severe tricuspid regurgitation. * Right ventricular systolic pressure is elevated at 40-50mmHg. Aortic Valve * The aortic valve is trileaflet. * The aortic valve is moderately calcified. * Mild valvular aortic stenosis. * There is no significant aortic regurgitation. Pulmonic Valve * The pulmonary valve is inadequately visualized, but the Doppler data is adequate for interpretation. * There is no pulmonic valvular stenosis. * Mild pulmonic valvular regurgitation. Great Vessels * The aortic root is normal size. Pericardium/Pleural * There is no pericardial effusion. Great Vessels * Normal inferior vena cava diameter and respiratory variation suggests normal central venous pressure. Left Ventricular Diastolic Function * Pulse wave TDI of the anterior and posterior mitral annulas demonstrates abnormal LV relaxation MMode 2D Measurements and Calculations IVSd 10 cm IVSs 1.4 cm LVIDd 3.6 cm LVIDs 2.6 cm LVPWd 1.4 cm LVPWs 1.4 cm IVS/LVPW 0.74 FS 28.3 % EDV(Teich) 54.6 ml ESV(Teich) 24.2 ml EF(Teich) 55.6 % EDV(cubed) 46.8 ml ESV(cubed) 17.3 ml EF(cubed) 63.1 % % IVS thick 35.3 % % LVPW thick 4.1 % LV mass(C)d 137.2 grams LV mass(C)dI 86.6 grams/m\S\2 LV mass(C)s 113.1 grams LV mass(C)sI 71.4 grams/m\S\2 SV(Teich) 30.3 ml SI(Teich) 19.1 ml/m\S\2 SV(cubed) 29.5 ml SI(cubed) 18.6 ml/m\S\2 LVAd ap4 18.5 cm\S\2 LVLd ap4 6.0 cm EDV(MOD-sp4) 46.3 ml EDV(sp4-el) 47.9 ml LVAs ap4 12.1 cm\S\2 LVLs ap4 5.2 cm ESV(MOD-sp4) 23.4 ml ESV(sp4-el) 24.1 ml EF(MOD-sp4) 49.5 % EF(sp4-el) 49.8 % SV(MOD-sp4) 22.9 ml SI(MOD-sp4) 14.5 ml/m\S\2 SV(sp4-el) 23.9 ml SI(sp4-el) 15.1 ml/m\S\2 Doppler Measurements and Calculations Ao V2 max 191.5 cm/sec Ao max PG 14.7 mmHg Ao max PG (full) 12.8 mmHg Ao V2 mean 129.7 cm/sec Ao mean PG 7.6 mmHg Ao mean PG (full) 6.5 mmHg Ao V2 VTI 32.4 cm LV V1 max PG 1.9 mmHg LV V1 mean PG 1.2 mmHg LV V1 max 68.6 cm/sec LV V1 mean 51.2 cm/sec LV V1 VTI 13.5 cm TR max azael 304.9 cm/sec
[2016-08-20 16:22] LABS: HEMATOCRIT 42.6 % (37-47)
[2016-08-20] MEDS: METOPROLOL TARTRATE 1 MG/ML VIAL IV. SCH ×2 (17:21→23:12)
--- NOTE | 2016-08-20 19:04 | DIAGNOSTIC IMAGING REPORT ---
CT OF THE CHEST WITHOUT IV CONTRAST CLINICAL HISTORY: Epigastric pain. Possible gastric torsion. COMPARISON STUDY: CT scan of the abdomen pelvis dated 12/04/2015 CT DOSE: TECHNIQUE: CT of the thorax was performed from the thoracic inlet to the lung bases. Images are reviewed in the axial, sagittal, and coronal planes. IV contrast was not administered for this examination. FINDINGS: Thyroid: Imaged portions of the thyroid gland are normal in appearance. Thoracic aorta: The thoracic aorta is normal in course and caliber, noting standard 3 vessel arch anatomy. Heart: The heart is enlarged. There are coronary artery calcifications. Lungs and pleural spaces: There is a trace left pleural effusion. There are left lower lobe atelectatic changes. Peripheral opacities within the right lower lobe, are also likely atelectatic. There is a 2.5 mm right upper lobe pulmonary nodule. This is of doubtful clinical significance given the patient's age Mediastinum: There is no evidence of pathologic mediastinal lymphadenopathy. Rahda: There is no evidence of pathologic hilar lymphadenopathy given the limitations of a noncontrast study. Axilla: There is no evidence of pathologic axillary lymphadenopathy. Upper abdomen: There is an intrathoracic stomach, similar to the prior study. There is indwelling nasogastric tube. Skeletal structures: There are advanced degenerative changes present within the gastric spine. IMPRESSION: 1. 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 2. Nasogastric tube 3. No evidence of pathologic adenopathy 4. Basilar atelectatic changes Electronically signed by: Monty Lord M.D. 08/20/2016 7:02 PM Dictated Date/Time: 08/20/2016 6:57 PM
--- NOTE | 2016-08-20 19:12 | DIAGNOSTIC IMAGING REPORT ---
CT ABDOMEN NO IV/ORAL CONT (CT) CT DOSE: 334.24 mGy.cm CLINICAL HISTORY: Abdominal pain. Possible gastric torsion. TECHNIQUE: Imaging was performed without intravenous or oral contrast. COMPARISON STUDY: 1316 FINDINGS: The visualized portions the lung bases reveal a hiatal hernia with intrathoracic stomach. There is indwelling nasogastric tube. There is a possible organoaxial volvulus. There are bibasilar opacities, statistically atelectatic. No space-occupying hepatic masses are visualized on this noncontrast study. No gallbladder abnormalities are visualized. The spleen is not enlarged. No pancreatic lesions are visualized in this noncontrast study. There is adrenal gland thickening. No renal, ureteral, or bladder calculi are visualized. There is fecal retention. There are postsurgical changes present within the spine. There is a trace left pleural effusion. IMPRESSION: 1. Hiatal hernia with intrathoracic stomach. 2. 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 3. Indwelling nasogastric tube 4. No hepatic splenic or pancreatic gallbladder or renal abnormalities are visualized on this noncontrast study. Electronically signed by: Monty Lord M.D. 08/20/2016 7:10 PM Dictated Date/Time: 08/20/2016 7:06 PM
[2016-08-20] MEDS ORDERED: ZOLPIDEM TARTRATE 5 MG TAB PO PRN (20:15)
--- NOTE | 2016-08-20 21:40 | SURGICAL CONSULTATION ---
DATE OF CONSULTATION: 08/20/2016 REASON FOR CONSULTATION: Question of intrathoracic stomach. HISTORY OF PRESENT ILLNESS: This is an 89-year-old female that I met last summer when she came in with signs and symptoms consistent with a gastric torsion; however, this quickly resolved. Her CT scan was impressive with an intrathoracic stomach; however, she got better and I followed her up in the office and she stated quite frankly that she did not want to consider any surgery. She is actually in pretty good shape for an 89-year-old and I discussed laparoscopic repair of this large paraesophageal hernia electively. The patient has actually done well for the last several months; however, she came in after "being reckless" this weekend and eating heavily on Friday, Friday and Friday night. She developed acute abdominal pain and then had bloody vomitus. This pain was in her epigastric area and her chest pain radiated down her left arm. She felt better after vomiting. She did not feel palpitations. She does have chronic atrial fibrillation with markedly dilated left atrium and presented with a rapid ventricular response. Dr. Barbour follows her for chronic atrial fibrillation and she also has marked tricuspid regurgitation. I have been asked to comment from a surgical standpoint. PAST MEDICAL HISTORY: 1. Known paraesophageal hernia. 2. Biatrial enlargement. 3. Chronic atrial fibrillation. 4. Diastolic dysfunction. 5. Hypertension. 6. Severe osteoarthritis. 7. Osteoporosis. 8. Pulmonary hypertension. 9. Tricuspid regurgitation. PAST SURGICAL HISTORY: 1. 5, para 5, abortus 0. 2. Cystocele repair. 3. Partial hysterectomy. 4. Left shoulder replacement. 5. Laminectomy with a posterior fixation. 6. Bilateral total knee arthroplasty. MEDICATIONS: 1. Prevagen. 2. Digoxin. 3. Colace. 4. Cymbalta. 5. Lasix. 6. Prilosec. 7. Imdur. 8. Lyrica. ALLERGIES: 1. FLAGYL. 2. PENICILLIN. 3. QUINOLONES. 4. SULFA. 5. ALENDRONATE. SOCIAL HISTORY: The patient lives with her of over 60 years. 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 She has never smoked cigarettes. Her 68-year- old daughter recently . 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 The patient has 3 other children close by and 6 grandchildren who are quite supportive. REVIEW OF SYSTEMS: The patient states that she has actually been doing well until these acute events. She has a problem with her feet. She has "fallen arches" and has some apparent mild hallux valgus deformities and it is very difficult for her to walk on her feet. She denies dyspnea. She denies palpitations even though she is in atrial fibrillation, and sometimes will have a rapid ventricular response. She denies diaphoresis, productive cough or hemoptysis, although she does have hemetemesis and has some coffee-ground emesis. She denies any weight loss. She actually has an NG tube in now, but is taking water and ice chips around the tube quite nicely. The patient has really not lost weight since last summer. The patient does have lower extremity edema. It is interesting that when she came here last summer, her lipase was over 2000, then down to 600 and now is normal. Her lactic acid was also fine. She had no new neurologic signs. She denies any wound breakdown. She has had no new visual or auditory symptoms. PHYSICAL EXAMINATION: GENERAL: This is a 5 feet 5 inches, 140-pound white female who wears glasses. She has an NG tube in place. It is not draining much. HEENT: Extraocular movements are intact. Her pupils are equal, round and reactive. Sclerae are anicteric. She has bilateral arcus senilis. She has no nasolabial flattening. Her lower teeth are in good repair and she has an upper denture plate. Her tongue is midline. Oral mucosa is moist. NECK: Supple. She has no carotid bruits. I detect no thyromegaly or thyroid nodules. She has no neck vein distention or supraclavicular or cervical lymphadenopathy. LUNGS: She does have rhonchi in her lower lungs, in her lower lung tanner posterior, particularly on the left. She also has bowel sounds in her left chest. HEART: She has an irregularly, irregular rhythm of her heart and a murmur which radiates to left sternal border. ABDOMEN: A bit more tympanitic than it was last summer. She does have good bowel sounds that are active. EXTREMITIES: She has excellent pedal pulses. She does have flattening of her plantar arches and has some mild hallux valgus deformities. She has 1+ edema. Her bilateral arthroplasty incisions in knees are well healed. NEUROLOGIC: She is awake, alert and oriented. She has no focal deficits. LABORATORY DATA: I reviewed her x-ray and it does look a little different than last summer. It is also important to know that her white count is only 5580 with a hemoglobin of 15.3. Her sodium was 144, which is exactly what it was when she was discharged last summer. Her chloride is 101, potassium 3.7. Her BUN and creatinine are 28 and 1.0. Her beta natriuretic peptide is over 3000. ASSESSMENT AND PLAN: Possible gastric torsion. She seems extremely comfortable now and would like her NG tube out and would like to go home. She is hungry. She is tentatively scheduled for a possible endoscopy in the morning; however, I am going to get a CAT scan without contrast tonight. I will discuss this with Dr. Rico in the morning. My personal opinion is that this woman should have a laparoscopic repair despite her advanced age. CHRISTINE
[2016-08-21] VITALS (12 sets, daily range): BP systolic 113–159; BP diastolic 75–97; PULSE 54–140; TEMP 36.5–37; O2SAT 90–95
[2016-08-21] MEDS: PANTOprazole INJ 40 MG in DEXTROSE 5% 100ML IV SCH ×3 (01:37→11:59)
[2016-08-21 05:48] LABS: MEAN CORPUSCULAR HEMOGLOBIN 35.2 pg (25-34); MEAN CORPUSCULAR HGB CONC 34.1 g/dl (32-36); MEAN PLATELET VOLUME 10.6 fL (7.4-10.4); PLATELET COUNT 161 K/uL (130-400); RED BLOOD COUNT 3.98 M/uL (4.2-5.4); WHITE BLOOD COUNT 5.98 K/uL (4.8-10.8)
[2016-08-21] MEDS: METOPROLOL TARTRATE 1 MG/ML VIAL IV. SCH ×5 (06:04→23:33)
[2016-08-21 06:15] LABS: BUN/CREATININE RATIO 27.4 (10-20); CALCIUM 9.1 mg/dl (8.5-10.1); CREATININE 0.9 mg/dl (0.60-1.20); POTASSIUM 3.9 mmol/L (3.5-5.1)
[2016-08-21] MEDS: PREGABALIN 75 MG CAP PO SCH ×2 (09:00→21:00)
[2016-08-21] MEDS: DULOXETINE (CYMBALTA) 30 MG CAP PO SCH (09:00)
[2016-08-21] MEDS: ISOSORBIDE MONONITRATE 30 MG TABCR PO SCH (09:00)
--- NOTE | 2016-08-21 10:27 | CARDIOLOGY PROGRESS NOTE ---
DATE: 08/21/2016 DATE: 08/21/2016. The patient seen and examined. Chart, medications, telemetry reviewed. SUBJECTIVE: The patient denies any abdominal pain or discomfort this morning. Notes no dizziness or lightheadedness. Heart rate remains variable. OBJECTIVE: VITAL SIGNS: Heart rates 75-120, blood pressure is 158/83, O2 saturations are 90% on room air. NECK: Thin. There is no distinct jugular venous distention. LUNGS: Reveal few scattered crackles basilar, but are predominantly clear. CARDIOVASCULAR EXAMINATION: Irregular, irregular with a grade 1/6 systolic murmur. No diastolic murmur. ABDOMEN: Soft with minimal distention. EXTREMITIES: Without cyanosis or clubbing. There is no peripheral edema. DATA: Echocardiogram done demonstrates mild left ventricular hypertrophy with the patient's overall ejection fraction 50-55%. There is calcification of the mitral valve annulus with mild mitral insufficiency, moderate to severe tricuspid insufficiency with elevated pulmonary pressures. Aortic valve was calcified with mild aortic stenosis. IMPRESSION: An 89-year-old female admitted with acute abdominal discomfort secondary to paraesophageal hernia. She carries a history of chronic atrial fibrillation of at least 6 months' duration. She has been previously on low dose digoxin for rhythm and for rate control with rates generally trending approximately 100 per outpatient records. Prior attempts with oral metoprolol were not well tolerated per patient since admission with the above complaints. Heart rate has been trending higher likely secondary to the stresses of acute illness, mild hypoxia. RECOMMENDATIONS: Will increase metoprolol to 5 mg IV q. 4 hours until able to take p.o. at which time will transition to oral beta emery. In the interim we will watch I's and O's closely. If volume excess occurs would give a single dose of IV furosemide. As the patient is n.p.o. current dosing of isosorbide is being held. Will switch this to topical nitrates. Will follow the patient in the hospital as clinical course progresses. ANDREWD
--- NOTE | 2016-08-21 11:42 | DIAGNOSTIC IMAGING REPORT ---
GI SERIES W/O KUB CLINICAL HISTORY: eval paraesophageal herniaabnormal CT exam COMPARISON STUDY: CT study dated 08/20/2016 FLUOROSCOPY TIME: 1.2 minutes. FINDINGS: Patient initiated swallow function well. Esophageal motility is diminished. Esophageal peristalsis is markedly diminished. There is a para Esophageal hiatal hernia. Bulk of the stomach is superior to the diaphragm. There is no evidence for rotational component. There is no evidence for gastric outlet obstruction. IMPRESSION: 1. Large para esophogeal hiatal hernia. 2. The bulk of the stomach is superior to the diaphragm. 3. No evidence for rotational component. 4. No evidence for gastric outlet obstruction. 5. Markedly diminished esophageal motility Electronically signed by: Patrick Rdz M.D. 08/21/2016 11:41 AM Dictated Date/Time: 08/21/2016 11:36 AM
--- NOTE | 2016-08-21 11:44 | Gastroenterology Progress Note ---
Progress Note Date of Service: Aug 21, 2016 Subjective Pt evaluation today including: conversation w/ patient, physical exam, chart review, lab review, review of studies Pt oriented to self only this AM. She had Afib w RVR yesterday, currently on Metoprolol IV q4hr. HR 90s. She is up in bed, appears to not be in distress. Denies any CT, abd pain, n/v. Per RN report she hasn't had any more emesis or BMs overnight. Hgb stable at 14. Review of Systems Constitutional: No chills, No fever Respiratory: No cough Cardiac: No chest pain Abdomen: No nausea, No pain, No vomiting Medications Current Inpatient Medications Medications (Trade) Dose Ordered Sig/Cynthia Route Start Time Stop Time Status Last Admin Dose Admin Ondansetron HCl (Zofran Inj) 4 mg Q6H PRN IV 08/20/16 05:00 09/19/16 04:59 Future hold Digoxin (Lanoxin Tab) 0.125 mg DAILY@1600 PO 08/20/16 16:00 09/19/16 15:59 08/20/16 15:35 0.125 MG Duloxetine HCl (Cymbalta Cap) 30 mg DAILY PO 08/20/16 09:00 09/19/16 08:59 Isosorbide Mononitrate (Imdur Ext Rel Tab) 30 mg QAM PO 08/20/16 09:00 09/19/16 08:59 Future Hold Pregabalin 75 mg 75 mg BID PO 08/20/16 09:00 09/19/16 08:59 Pantoprazole Sodium/Dextrose (Protonix Inj/D5 100ml) 100 ml @ 20 mls/hr Q5H IV 08/20/16 05:30 09/19/16 05:29 08/21/16 06:35 20 MLS/HR Zolpidem Tartrate (Ambien Tab) 5 mg HS PRN PO 08/20/16 20:15 09/19/16 20:14 Metoprolol Tartrate (Lopressor Iv) 5 mg Q4 IV. 08/21/16 12:00 09/20/16 11:59 Nitroglycerin (Nitroglycerin 2% Oint) 0.5 inch Q6H EXT 08/21/16 11:00 09/20/16 10:59 Objective Vital Signs Date Time Temp Pulse Resp B/P Pulse Ox O2 Delivery O2 Flow Rate FiO2 08/21/16 08:00 90 Room Air 08/21/16 07:56 36.8 75 16 158/83 90 Room Air 08/21/16 06:04 83 109/69 08/21/16 04:51 36.8 99 18 113/77 90 Room Air 08/21/16 04:00 95 Nasal Cannula 2.0 08/21/16 00:16 37.0 124 18 149/92 93 Nasal Cannula 2.0 08/21/16 00:00 95 Nasal Cannula 2.0 08/20/16 23:12 145 149/92 08/20/16 20:22 36.5 103 16 142/79 90 08/20/16 20:00 Room Air 08/20/16 17:21 114 128/86 08/20/16 16:00 Room Air 08/20/16 15:35 136 08/20/16 15:15 36.6 121 16 126/76 91 Room Air 08/20/16 12:40 Room Air 08/20/16 12:28 107 117/74 Physical Exam General Appearance: WD/WN, no apparent distress Eyes: normal inspection, PERRL, EOMI Neck: supple, no JVD, trachea midline Respiratory/Chest: no respiratory distress, no accessory muscle use, + decreased breath sounds Cardiovascular: no gallop, no murmur, + irregularly irregular Abdomen: normal bowel sounds, non tender, soft Extremities: normal inspection, no pedal edema, no calf tenderness Neurologic/Psych: alert, + disoriented Skin: normal color, no jaundice, no rash Laboratory Results Last 24 Hours Test 08/20/16 11:40 08/20/16 16:14 08/21/16 05:04 Total Creatine Kinase 68 U/L 74 U/L Creatine Kinase MB 1.8 ng/ml Creatine Kinase MB Ratio 2.6 Troponin I 0.019 ng/ml 0.021 ng/ml Hemoglobin 14.3 g/dL 14.0 g/dL Hematocrit 42.6 % 41.0 % White Blood Count 5.98 K/uL Red Blood Count 3.98 M/uL Mean Corpuscular Volume 103.0 fL Mean Corpuscular Hemoglobin 35.2 pg Mean Corpuscular Hemoglobin Concent 34.1 g/dl RDW Standard Deviation 57.9 fL RDW Coefficient of Variation 15.3 % Platelet Count 161 K/uL Mean Platelet Volume 10.6 fL Sodium Level 144 mmol/L Potassium Level 3.9 mmol/L Chloride Level 107 mmol/L Carbon Dioxide Level 28 mmol/L Anion Gap 9.0 mmol/L Blood Urea Nitrogen 25 mg/dl Creatinine 0.90 mg/dl Est Creatinine Clear Calc Drug Dose 35.0 ml/min Estimated GFR () 66.2 Estimated GFR (Non- 57.1 BUN/Creatinine Ratio 27.4 Random Glucose 111 mg/dl Calcium Level 9.1 mg/dl Magnesium Level 2.0 mg/dl Assessment and Plan Pt is a 89 y/o female seen for coffee ground emesis. Hx of paraesophageal hernia w most portion of stomach in thoracic region. 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 CT Surgery had been consulted for possible hernia repair. Overnight no more emesis or signs of melena. Hgb stable since admission at 14- 15. She developed Afib w RVR currently controlled w Metoprolol IV q4hr. Denies any CP, SOB, abd pain, n/v. PLANS: - Discussed w Dr. Gu (CT Surgeon) this AM, unsure if pt would proceed w hernia repair surgery. At this time would hold off EGD given she's been asymptomatic and her Hgb is stable. Will obtain UGI series, and monitor pt's clinical course. I have seen and evaluated the patient. She notes that she is feeling fairly well today without any recurrence of emesis overnight. An upper GI series was done today which shows an intrathoracic stomach without evidence of volvulus. I would suggest that you advance her to a full liquid diet today, continue Protonix 40 mg per day while she determines if she desires surgical intervention. At this point, repeat upper endoscopy probably not add much to her present care.
[2016-08-21] MEDS: NITROGLYCERIN OINT 2% 1GM PACKET EXT SCH ×3 (11:55→23:33)
[2016-08-21] MEDS: DIGOXIN 0.125 MG TAB PO SCH (15:57)
[2016-08-21] MEDS ORDERED: METOPROLOL TARTRATE 1 MG/ML VIAL IV ONE (18:15)
--- NOTE | 2016-08-21 21:30 | Progress Note ---
Medicine Progress Note Date & Time of Visit: Aug 21, 2016 at 21:27. Subjective seen sitting up in chair somewhat confused states she ate all her dinner denies abdominal pain, nausea no other symptoms Objective Last 8 Hrs Date Time Temp Pulse Resp B/P Pulse Ox O2 Delivery O2 Flow Rate FiO2 08/21/16 20:54 97 140/91 08/21/16 19:52 36.6 97 18 140/91 92 Room Air 08/21/16 18:05 140 141/75 08/21/16 17:43 36.8 140 16 141/75 94 Room Air 08/21/16 16:00 93 Room Air 08/21/16 15:57 113 159/97 08/21/16 15:57 113 08/21/16 15:38 36.5 54 16 159/97 93 Room Air Physical Exam: General- oriented x 3, not in distress Neck- supple, no JVD, Lungs-clear breath sounds, no wheezing Heart- tachycardic, irregularly irregular rhythm; no murmurs Abdomen- normal bowel sounds, non distended, soft, nontender Extremities- no pretibial edema, no calf tenderness Neuro- alert, oriented x 3; no gross deficits Skin- warm & dry Laboratory Results: Last 24 Hours Test 08/21/16 05:04 White Blood Count 5.98 K/uL Red Blood Count 3.98 M/uL Hemoglobin 14.0 g/dL Hematocrit 41.0 % Mean Corpuscular Volume 103.0 fL Mean Corpuscular Hemoglobin 35.2 pg Mean Corpuscular Hemoglobin Concent 34.1 g/dl RDW Standard Deviation 57.9 fL RDW Coefficient of Variation 15.3 % Platelet Count 161 K/uL Mean Platelet Volume 10.6 fL Sodium Level 144 mmol/L Potassium Level 3.9 mmol/L Chloride Level 107 mmol/L Carbon Dioxide Level 28 mmol/L Anion Gap 9.0 mmol/L Blood Urea Nitrogen 25 mg/dl Creatinine 0.90 mg/dl Est Creatinine Clear Calc Drug Dose 35.0 ml/min Estimated GFR () 66.2 Estimated GFR (Non- 57.1 BUN/Creatinine Ratio 27.4 Random Glucose 111 mg/dl Calcium Level 9.1 mg/dl Magnesium Level 2.0 mg/dl Assessment & Plan 89 yoF with CHF Diastolic Type, A fib not on anticoagulation, HTN, presents to the ER with RVR, chest pain, abdominal pain and subsequent dark bloody vomitus. POSSIBLE UPPER GI BLEED IN THE SETTING OF PARAESOPHAGEAL AND HIATAL HERNIA - Hg stable Upper GI series noted GI consulted, no EGD planned continue Protonix daily Thoracic Surgery on board, CT abdomen ordered - diet ordered CHRONIC ATRIAL FIBRILLATION, IN RVR - usually on Digoxin not on anticoagulation - asymptomatic, Bp stable - Cardio consulted on metoprolol IV, Digoxin CHEST PAIN, ACS ruled out resolved on Nitropaste CHRONIC DIASTOLIC CHF - compensated monitor DVT proph: SCDs Dispo Pending Current Inpatient Medications: Current Inpatient Medications Medications (Trade) Dose Ordered Sig/Cynthia Route Start Time Stop Time Status Last Admin Dose Admin Ondansetron HCl (Zofran Inj) 4 mg Q6H PRN IV 08/20/16 05:00 09/19/16 04:59 Future hold Digoxin (Lanoxin Tab) 0.125 mg DAILY@1600 PO 08/20/16 16:00 09/19/16 15:59 08/21/16 15:57 0.125 MG Duloxetine HCl (Cymbalta Cap) 30 mg DAILY PO 08/20/16 09:00 09/19/16 08:59 Isosorbide Mononitrate (Imdur Ext Rel Tab) 30 mg QAM PO 08/20/16 09:00 09/19/16 08:59 Future Hold Pregabalin (Lyrica Cap) 75 mg BID PO 08/20/16 09:00 09/19/16 08:59 08/21/16 21:00 75 MG Zolpidem Tartrate (Ambien Tab) 5 mg HS PRN PO 08/20/16 20:15 09/19/16 20:14 Metoprolol Tartrate (Lopressor Iv) 5 mg Q4 IV. 08/21/16 12:00 09/20/16 11:59 08/21/16 20:54 5 MG Nitroglycerin 0.5 inch 0.5 inch Q6H EXT 08/21/16 11:00 09/20/16 10:59 08/21/16 17:01 0.5 INCH Pantoprazole Sodium/Syringe (Protonix Inj/ Syringe) 10 ml @ 5 mls/min DAILY@11 IV 08/22/16 11:00 09/21/16 10:59 Lorazepam (Ativan Tab) 0.25 mg UD ONCE PO 08/21/16 21:30 08/21/16 21:31 UNV
[2016-08-21] MEDS ORDERED: LORAZEPAM 0.5 MG TAB ONE (21:32)
[2016-08-21] MEDS ORDERED: LORAZEPAM 0.5 MG TAB PO ONE (22:00)
[2016-08-22] VITALS (11 sets, daily range): BP systolic 128–167; BP diastolic 74–101; PULSE 60–167; TEMP 36.4–37.2; O2SAT 90–97
[2016-08-22] MEDS: NITROGLYCERIN OINT 2% 1GM PACKET EXT SCH ×3 (05:01→16:50)
[2016-08-22] MEDS: METOPROLOL TARTRATE 1 MG/ML VIAL IV. SCH ×2 (05:01→07:51)
[2016-08-22] MEDS: DULOXETINE (CYMBALTA) 30 MG CAP PO SCH (07:55)
[2016-08-22] MEDS: PREGABALIN 75 MG CAP PO SCH (07:55)
[2016-08-22 08:57] LABS: BASO % 0.4 %; BASO ABS # 0.02 K/uL (0-0.2); COMPLETE YES; EOS % 1.7 %; HEMATOCRIT 40.2 % (37-47); IG% 0.2 %; LYMPH % 18.4 %; LYMPH ABS # 0.96 K/uL (1.2-3.4); MEAN CORPUSCULAR HGB CONC 34.3 g/dl (32-36); MEAN PLATELET VOLUME 10.2 fL (7.4-10.4); MONO % 9.2 %; NEUT % 70.1 %; PLATELET COUNT 153 K/uL (130-400); RED BLOOD COUNT 3.94 M/uL (4.2-5.4); WHITE BLOOD COUNT 5.23 K/uL (4.8-10.8)
[2016-08-22] MEDS ORDERED: NITROFURANTOIN MONOHYDRATE 100 MG CAP PO SCH (09:00)
--- NOTE | 2016-08-22 09:17 | Progress Note ---
Medicine Progress Note Date & Time of Visit: Aug 22, 2016 at 09:02. Subjective patient seen sitting up in bed calm, oriented to person and place with some prodding tolerated breakfast, no nausea, abdominal pain denies chest pain, dyspnea, dizziness no fever/chills, urinary symptoms denies other symptoms Objective Last 8 Hrs Date Time Temp Pulse Resp B/P Pulse Ox O2 Delivery O2 Flow Rate FiO2 08/22/16 07:51 97 145/81 08/22/16 07:48 97 08/22/16 07:34 37.2 60 20 145/81 95 08/22/16 05:01 81 128/82 08/22/16 05:00 36.8 81 16 128/82 90 Room Air 08/22/16 04:00 Room Air Physical Exam: General- oriented x 3, not in distress Neck- supple, no JVD, Lungs-clear breath sounds, no rales/wheezing Heart- normal rate, irregularly irregular rhythm; no murmurs Abdomen- normal bowel sounds, non distended, soft, nontender Extremities- no pretibial edema, no calf tenderness Neuro- alert, oriented x 3; no gross deficits Skin- warm & dry Laboratory Results: Last 24 Hours Test 08/22/16 08:50 White Blood Count 5.23 K/uL Red Blood Count 3.94 M/uL Hemoglobin 13.8 g/dL Hematocrit 40.2 % Mean Corpuscular Volume 102.0 fL Mean Corpuscular Hemoglobin 35.0 pg Mean Corpuscular Hemoglobin Concent 34.3 g/dl Platelet Count 153 K/uL Mean Platelet Volume 10.2 fL Neutrophils (%) (Auto) 70.1 % Lymphocytes (%) (Auto) 18.4 % Monocytes (%) (Auto) 9.2 % Eosinophils (%) (Auto) 1.7 % Basophils (%) (Auto) 0.4 % Neutrophils # (Auto) 3.67 K/uL Lymphocytes # (Auto) 0.96 K/uL Monocytes # (Auto) 0.48 K/uL Eosinophils # (Auto) 0.09 K/uL Basophils # (Auto) 0.02 K/uL RDW Standard Deviation 55.0 fL RDW Coefficient of Variation 14.6 % Immature Granulocyte % (Auto) 0.2 % Immature Granulocyte # (Auto) 0.01 K/uL Assessment & Plan 89 yoF with CHF Diastolic Type, A fib not on anticoagulation, HTN, presents to the ER with RVR, chest pain, abdominal pain and subsequent dark bloody vomitus. POSSIBLE UPPER GI BLEED IN THE SETTING OF PARAESOPHAGEAL AND HIATAL HERNIA - Hg remains stable Upper GI series IMPRESSION: 1. Large para-esophogeal hiatal hernia. 2. The bulk of the stomach is superior to the diaphragm. 3. No evidence for rotational component. 4. No evidence for gastric outlet obstruction. 5. Markedly diminished esophageal motility CT abdomen: IMPRESSION: 1. Hiatal hernia with intrathoracic stomach. 2. 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 3. Indwelling nasogastric tube 4. No hepatic splenic or pancreatic gallbladder or renal abnormalities are visualized on this noncontrast study. GI consulted, no EGD planned as patient was already asymptomatic, Hg stable Thoracic Surgeon Dr. Gu consulted, outpatient follow up in 1 week for possible consideration of hernia surgical repair continue Protonix daily Speech Therapy eval ordered CHRONIC ATRIAL FIBRILLATION, IN RVR - usually on Digoxin not on anticoagulation - asymptomatic, Bp stable - Cardio consulted on metoprolol IV, Digoxin - HR now controlled - awaiting further recommendations by Cardiology CHEST PAIN, ACS ruled out cardiac markers: negative Echo: * -- Conclusions -- * The rhythm is atrial fibrillation with rapid ventricular response. * Ejection Fraction = 50-55%. * The left atrium is severely dilated. * The aortic valve is moderately calcified. * Mild valvular aortic stenosis. * There is severe mitral annular calcification. * There is mild mitral regurgitation. * There is severe tricuspid regurgitation. * Right ventricular systolic pressure is elevated at 40-50mmHg. - on Nitropaste, usually on Imdur CHRONIC DIASTOLIC CHF - compensated monitor E COLI UTI - presented with nausea has confusional episodes while in the hospital - Urine culture: e coli > 100k, pansensitive - has allergy to penicillin, quinolones, sulfa - Macrobid BID x 5 days DVT proph: SCDs Dispo Pending possible d/c home today when cleared by Cardiology Current Inpatient Medications: Current Inpatient Medications Medications (Trade) Dose Ordered Sig/Cynthia Route Start Time Stop Time Status Last Admin Dose Admin Ondansetron HCl (Zofran Inj) 4 mg Q6H PRN IV 08/20/16 05:00 09/19/16 04:59 Future hold Digoxin (Lanoxin Tab) 0.125 mg DAILY@1600 PO 08/20/16 16:00 09/19/16 15:59 08/21/16 15:57 0.125 MG Duloxetine HCl (Cymbalta Cap) 30 mg DAILY PO 08/20/16 09:00 09/19/16 08:59 08/22/16 07:55 30 MG Isosorbide Mononitrate (Imdur Ext Rel Tab) 30 mg QAM PO 08/20/16 09:00 09/19/16 08:59 Future Hold Pregabalin (Lyrica Cap) 75 mg BID PO 08/20/16 09:00 09/19/16 08:59 08/22/16 07:55 75 MG Zolpidem Tartrate (Ambien Tab) 5 mg HS PRN PO 08/20/16 20:15 09/19/16 20:14 Metoprolol Tartrate (Lopressor Iv) 5 mg Q4 IV. 08/21/16 12:00 09/20/16 11:59 08/22/16 07:51 5 MG Nitroglycerin 0.5 inch 0.5 inch Q6H EXT 08/21/16 11:00 09/20/16 10:59 08/22/16 05:01 0.5 INCH Pantoprazole Sodium/Syringe (Protonix Inj/ Syringe) 10 ml @ 5 mls/min DAILY@11 IV 08/22/16 11:00 09/21/16 10:59 Nitrofurantoin Macrocrystals (Macrobid Cap) 100 mg BID PO 08/22/16 09:00 08/27/16 08:59 UNV
[2016-08-22] MEDS ORDERED: METOPROLOL SUCC 25MG EXT REL TAB PO ONE (09:34)
[2016-08-22 09:44] LABS: BUN/CREATININE RATIO 17.3 (10-20); CALCIUM 9.1 mg/dl (8.5-10.1); CREATININE 0.89 mg/dl (0.60-1.20); POTASSIUM 3.7 mmol/L (3.5-5.1)
--- NOTE | 2016-08-22 10:00 | CARDIOLOGY PROGRESS NOTE ---
DATE: 08/22/2016 DATE: 08/22/2016. The patient seen and examined. Chart, medications, telemetry reviewed. SUBJECTIVE: The patient feels better this morning, ate breakfast with tolerance. Telemetry reveals better control of arrhythmias overnight and this morning with atrial fibrillation slowing. She denies any chest pain or shortness of breath. OBJECTIVE: VITAL SIGNS: Heart rate is 97, blood pressure is 145/81. There is no profound bradycardia episodes during the night and maximum heart rate was 125. HEAD, EYES, EARS, NOSE, AND THROAT: Normocephalic, atraumatic. NECK: There is no jugular venous distention at 30 degrees. LUNGS: Clear. CARDIOVASCULAR: Exam is irregularly irregular. ABDOMEN: Soft with minimal distention. EXTREMITIES: Without cyanosis or clubbing. There is no peripheral edema. IMPRESSION: An 89-year-old female admitted with issues associated with paraesophageal hernia, transient gastric outlet obstruction now clinically improved this morning. In association with acute illness there are elevated rates of her chronic atrial fibrillation. In the past she has been on low dose digoxin for rate control with only marginal control of rates. RECOMMENDATIONS: When she is able to trial p.o. medications will discontinue IV metoprolol and begin on Toprol-XL 25 mg twice per day in addition to digoxin dosing. Will follow heart rates on this medication changes. Obviously bowel obstruction and large supradiaphragmatic gastric area may limit absorption. Will follow heart rate and rhythms on current therapies.
--- NOTE | 2016-08-22 10:23 | SURGERY PROGRESS NOTE ---
DATE: 08/22/2016 SUBJECTIVE: Ms. Harris was seen today on 08/22/2016. I had a long talk with the patient and her family. I believe this woman has a paraesophageal hernia with gastric volvulus. I think she should be an offered operation despite her advanced age. We would let her go home if she has some confusion and I will see the patient and her family in the office.
[2016-08-22] MEDS ORDERED: PANTOprazole INJ 40 MG in SYRINGE 0 ML IV SCH (11:00)
[2016-08-22] MEDS ORDERED: METOPROLOL SUCC 25MG EXT REL TAB PO SCH ×3 (14:00→19:00)
[2016-08-22] MEDS: DIGOXIN 0.125 MG TAB PO SCH (16:45)
[2016-08-22] MEDS ORDERED: TPRSR25 PO (18:45)
[2016-08-22] MEDS ORDERED: MCRB100 PO (18:45)
--- NOTE | 2016-08-22 18:51 | Discharge Instructions ---
Discharge Instructions Admission Reason for Admission: Acute Upper Gi Bleed Discharge Discharge Diagnosis / Problem: HIATAL HERNIA Discharge Goals Goal(s): Diagnostic testing, Therapeutic intervention Activity Recommendations Activity Limitations: as noted below (NO HEAVY EXERTION UNTIL RE-EVALUATED BY PRIMARY CARE PHYSICIAN) . Instructions / Follow-Up Instructions / Follow-Up PLEASE REVIEW YOUR NEW MEDICATION LIST AND FOLLOW INSTRUCTIONS CAREFULLY. CALL PRIMARY CARE PHYSICIAN OR RETURN TO ER IMMEDIATELY IF WITH RECURRENCE OF SYMPTOMS, DIZZINESS, WEAKNESS, CHEST PAIN, SHORTNESS OF BREATH, FEVER/CHILLS, NAUSEA/VOMITING. SLIPPERY dental soft diet Aspiration/GERD precautions: Fully upright for meals and for 20-30 minutes after meals, keep head of bed elevated at least 30-degrees at all times--even for sleep, straws okay, alternate solids and liquids frequently during meals FOLLOW UP WITH PRIMARY CARE PHYSICIAN IN 1 WEEK (CLINIC TO CALL PATIENT WITH APPOINTMENT). FOLLOW UP WITH PHLEBOTOMIST MEDICAL LAB ASSISTANT DR. NORTON (TEL. NO. [phone]) AND THORACIC SURGEON DR. GALEANO IN 1 WEEK (TEL NO. [phone]) Current Hospital Diet Patient's current hospital diet: Regular Diet Discharge Diet Recommended Diet: Regular Diet Diet Texture: Dental Soft (bite-sized) (SLIPPERY) Pending Studies Studies pending at discharge: no Medical Emergencies . Who to Call and When: Medical Emergencies: If at any time you feel your situation is an emergency, please call 911 immediately. . Non-Emergent Contact Non-Emergency issues call your: Primary Care Provider Call Non-Emergent contact if: you have a fever, your pain is not controlled, you have any medication questions . 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 "Provider Documentation" section prepared by Don Dowell. VTE Core Measure Inpt VTE Proph given/why not?: SCD's, Contraindicated
[2016-08-22] MEDS ORDERED: PANT1TAB48 PO (19:05)
--- NOTE | 2016-08-22 19:09 | Discharge Summary ---
Discharge Summary Date of Service Aug 22, 2016. Discharge Summary Admission Date: Aug 20, 2016 at 05:04 Discharge Date: Aug 22, 2016 Discharge Disposition: Home Principal Diagnosis: POSSIBLE UPPER GI BLEED IN THE SETTING OF PARAESOPHAGEAL AND HIATAL HERNIA Secondary Diagnoses/Problems: PLEASE REFER TO HOSPITAL COURSE BELOW FOR FURTHER DETAILS. Procedures: CT ABDOMEN: IMPRESSION: 1. Hiatal hernia with intrathoracic stomach. 2. 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 3. Indwelling nasogastric tube 4. No hepatic splenic or pancreatic gallbladder or renal abnormalities are visualized on this noncontrast study. UPPER GI SERIES: IMPRESSION: 1. Large para esophogeal hiatal hernia. 2. The bulk of the stomach is superior to the diaphragm. 3. No evidence for rotational component. 4. No evidence for gastric outlet obstruction. 5. Markedly diminished esophageal motility CT OF THE CHEST WITHOUT IV CONTRAST CLINICAL HISTORY: Epigastric pain. Possible gastric torsion. COMPARISON STUDY: CT scan of the abdomen pelvis dated 12/04/2015 CT DOSE: TECHNIQUE: CT of the thorax was performed from the thoracic inlet to the lung bases. Images are reviewed in the axial, sagittal, and coronal planes. IV contrast was not administered for this examination. FINDINGS: Thyroid: Imaged portions of the thyroid gland are normal in appearance. Thoracic aorta: The thoracic aorta is normal in course and caliber, noting standard 3 vessel arch anatomy. Heart: The heart is enlarged. There are coronary artery calcifications. Lungs and pleural spaces: There is a trace left pleural effusion. There are left lower lobe atelectatic changes. Peripheral opacities within the right lower lobe, are also likely atelectatic. There is a 2.5 mm right upper lobe pulmonary nodule. This is of doubtful clinical significance given the patient's age Mediastinum: There is no evidence of pathologic mediastinal lymphadenopathy. Radha: There is no evidence of pathologic hilar lymphadenopathy given the limitations of a noncontrast study. Axilla: There is no evidence of pathologic axillary lymphadenopathy. Upper abdomen: There is an intrathoracic stomach, similar to the prior study. There is indwelling nasogastric tube. Skeletal structures: There are advanced degenerative changes present within the gastric spine. IMPRESSION: 1. 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 2. Nasogastric tube 3. No evidence of pathologic adenopathy 4. Basilar atelectatic changes Consultations: GI DR. IBARRA, THORACIC SURGERY DR. GALEANO, MANAGER PAYMENT DR. DIEZ Pending Studies/Follow-Up: PLEASE REFER TO HOSPITAL COURSE BELOW. Medication Reconciliation New Medications: Pantoprazole (Protonix) 40 Mg Tab 1 TAB PO DAILY for 30 Days, #30 TAB 2 Refills 30 minutes before breakfast Metoprolol Succinate (Metoprolol Succinate ER) 25 Mg Tabcr 25 MG PO TID for 30 Days, #90 TABS 2 Refills Nitrofurantoin Monohyd Macrocr (Nitrofurantoin Monohydrat) 100 Mg Cap 100 MG PO BID for 5 Days, #10 CAP Continued Medications: Acetaminophen (Tylenol) 325 Mg Tab 650 MG PO Q6 PRN for Pain, TAB Apoaequorin (Prevagen) 10 Mg Cap 1 DROP PO UD Ascorbic Acid (Vitamin C) 1,000 Mg Tab 1000 MG PO DAILY Calcium Carbonate-Cholecalcife (Calcium 600+D3 600-800 mg-Unit) 1 Tab Tab 1 TAB PO BID Cholecalciferol (Vitamin D3) 1,000 Unit Tab 1 TAB PO DAILY for 90 Days, #90 TAB 3 Refills Cyanocobalamin (Vitamin B-12) 250 Mcg Tab 250 MCG PO DAILY Digoxin (Digoxin) 0.125 Mg Tab 0.125 MG PO DAILY Docusate Sodium (Colace) 100 Mg Cap 1 CAP PO BID for 30 Days, #60 CAP Duloxetine HCl (Cymbalta) 30 Mg Cap 30 MG PO DAILY, 2 Refills Furosemide (Lasix) 20 Mg Tab 20 MG PO DAILY PRN for cough,wt gain,edema, TAB Isosorbide Mononitrate Ext Rel (Imdur Ext Rel) 30 Mg Ertab 30 MG PO QAM, TAB Misc Natural Products (Osteo Bi-Flex Joint Shiel) 1 Tab Tab 1 TAB PO DAILY Multiple Vitamins W/ Minerals (Cerovite Senior) 1 Tab Tab 1 TAB PO DAILY Multiple Vitamins W/ Minerals (Preservision Areds 2) 1 Cap Cap 1 CAP PO DAILY Pregabalin (Lyrica) 75 Mg Cap 75 MG PO BID Discontinued Medications: Omeprazole (Prilosec) 20 Mg Capcr 20 MG PO DAILY Admission Information HPI (per Admitting provider): 89 yo F with large paraesophageal hernia presents to the ER with acute bloody vomitus, abdominal pain and nausea that began acutely this everning while at rest. She also reports that along with the abdominal pain, which would precede the vomiting and felt "like a hurt" in the epigastric region, she would get some chest pain that radiated into her L arm. Then she would have a vomiting spell and then she would feel better and the chest pain would resolve. She denies a h/o chest pain and experienced no associated symptoms such as sweating or SOB. She is not very active at baseline, and therefore, cannot tell me if she feels more short of breath than usual. She has a h/o admission last November ( 2015) for epigastric pain (without the bleeding) and was found to have the hernia mentioned above with a consult by Dr. Galeano who recommended monitoring and/or elective repair as an outpatient based on her higher josh- operative risk. She denies any changes in her stools and states that she is constipated at baseline. She denies fevers, chills, headache, sore throat. She denies any alcohol use or NSAID use (including no ASA). She follows with Dr. Barbour for chronic atrial fibrillation and diastolic dysfunction with h/o heart failure in the past. Physical Exam (per Admitting): GEN: WNWD, in mild distress, alert and appropriate, no increased work of breathing. NGT in place with dark bloody vomitus in suction canister. HEENT: NC/AT, PERRL, normal sclerae CARDIO: tachy, irreg rate, S1/2 heard without m/g/r LUNGS: CTA bilaterally, no crackles, rales or wheezes, good diaphragmatic excursion ABD: soft, TTP in epigastric region, non-distended, no rebound or guarding, +BS EXTREMITY: RP and DP palpable 2+ bilat, no LE swelling or edema, extremities are warm and well-perfused NEURO: CN 2-12 grossly intact, sensation intact throughout MUSC: moves all extremities equally, appears generally weak, no gross focal deficits SKIN: warm and dry Hospital Course 89 yo /F with CHF Diastolic Type, A fib not on anticoagulation, HTN, presents to the ER with RVR, chest pain, abdominal pain and subsequent dark bloody vomitus. POSSIBLE UPPER GI BLEED IN THE SETTING OF PARAESOPHAGEAL AND HIATAL HERNIA - no recurrence as inpatient - Hg remained stable around 14 - place on Protonix drip - CT abdomen: IMPRESSION: 1. Hiatal hernia with intrathoracic stomach. 2. 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 3. Indwelling nasogastric tube 4. No hepatic splenic or pancreatic gallbladder or renal abnormalities are visualized on this noncontrast study. Upper GI series IMPRESSION: 1. Large para-esophogeal hiatal hernia. 2. The bulk of the stomach is superior to the diaphragm. 3. No evidence for rotational component. 4. No evidence for gastric outlet obstruction. 5. Markedly diminished esophageal motility GI consulted, no EGD planned as patient was already asymptomatic, Hg stable Thoracic Surgeon Dr. Galeano consulted, outpatient follow up in 1 week for possible consideration of hernia surgical repair Protonix 40mg po daily Speech Therapy eval ordered, recommend dental soft, slippery diet - ff up with Thoracic Surgeon Dr. Galeano in 1 week ff up with PCP in 1 week CHRONIC ATRIAL FIBRILLATION, IN RVR - usually on Digoxin not on anticoagulation - asymptomatic, BP stable - Cardio consulted- Dr. Diez Metoprolol IV changed to Metoprolol 25mg po TID continue Digoxin, Aspirin - cleared for d/c today ff up with Staffing Coordinator in 1 week CHEST PAIN, ACS ruled out cardiac markers: negative Echo: * -- Conclusions -- * The rhythm is atrial fibrillation with rapid ventricular response. * Ejection Fraction = 50-55%. * The left atrium is severely dilated. * The aortic valve is moderately calcified. * Mild valvular aortic stenosis. * There is severe mitral annular calcification. * There is mild mitral regurgitation. * There is severe tricuspid regurgitation. * Right ventricular systolic pressure is elevated at 40-50mmHg. - continue Imdur CHRONIC DIASTOLIC CHF - compensated E COLI UTI - presented with nausea has confusional episodes while in the hospital - Urine culture: e coli > 100k, pansensitive - has allergy to penicillin, quinolones, sulfa - Macrobid BID x 5 days monitor RIGHT UPPER LOBE LUNG NODULE please refer to CT chest report above in the procedure section ff up as outpatient DVT proph: SCDs Dispo d/c home today ff up with PCP in 1 week military education coordinator and thoracic surgeon in 1 week Total time spent on discharge = 60 minutes This includes examination of the patient, discharge planning, medication reconciliation, and communication with other providers. Discharge Instructions Discharge Instructions Admission Reason for Admission: Acute Upper Gi Bleed Discharge Discharge Diagnosis / Problem: HIATAL HERNIA Discharge Goals Goal(s): Diagnostic testing, Therapeutic intervention Activity Recommendations Activity Limitations: as noted below (NO HEAVY EXERTION UNTIL RE-EVALUATED BY PRIMARY CARE PHYSICIAN) . Instructions / Follow-Up Instructions / Follow-Up PLEASE REVIEW YOUR NEW MEDICATION LIST AND FOLLOW INSTRUCTIONS CAREFULLY. CALL PRIMARY CARE PHYSICIAN OR RETURN TO ER IMMEDIATELY IF WITH RECURRENCE OF SYMPTOMS, DIZZINESS, WEAKNESS, CHEST PAIN, SHORTNESS OF BREATH, FEVER/CHILLS, NAUSEA/VOMITING. SLIPPERY dental soft diet Aspiration/GERD precautions: Fully upright for meals and for 20-30 minutes after meals, keep head of bed elevated at least 30-degrees at all times--even for sleep, straws okay, alternate solids and liquids frequently during meals FOLLOW UP WITH PRIMARY CARE PHYSICIAN IN 1 WEEK (CLINIC TO CALL PATIENT WITH APPOINTMENT). FOLLOW UP WITH MANAGER PAYMENT DR. DIEZ (TEL. NO. [phone]) AND THORACIC SURGEON DR. GALEANO IN 1 WEEK (TEL NO. [phone]) Current Hospital Diet Patient's current hospital diet: Regular Diet Discharge Diet Recommended Diet: Regular Diet Diet Texture: Dental Soft (bite-sized) (SLIPPERY) Pending Studies Studies pending at discharge: no Medical Emergencies . Who to Call and When: Medical Emergencies: If at any time you feel your situation is an emergency, please call 911 immediately. . Non-Emergent Contact Non-Emergency issues call your: Primary Care Provider Call Non-Emergent contact if: you have a fever, your pain is not controlled, you have any medication questions . 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 "Provider Documentation" section prepared by Don Dowell. VTE Core Measure Inpt VTE Proph given/why not?: SCD's, Contraindicated
--- NOTE | 2016-09-13 11:24 | Cardiology Consultation ---
Cardiology Consultation Date of Consultation: Sep 13, 2016 History of Present Illness Annette Lawrence is an 89 year old female seen in cardiology consultation per the request of Sonia Avila PA-C and Dr Gu for evaluation of chronic atrial fibrillation. The patient typically follows with Dr Barbour as an outpatient with history of chronic atrial fibrillation (not on coumadin due to high bleeding risk) and mild aortic stenosis. 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 She denies was for this last month and returned yesterday for repair which was performed by Dr. Gu. Overall the patient tolerated the procedure well. She has had episodes of atrial fibrillation at just above 100 bpm. Nursing was concerned regarding her telemetry findings today. On review for telemetry her predominant rhythm is atrial fibrillation with occasional PVCs. At that time her PVCs were frequent, and she did have an episode of atrial fibrillation with frequent PVCs in a pattern of ventricular bigeminy at 10:36 AM. The morphology of the PVCs looked wide and abnormal, her telemetry leads were since repositioned, and on repeat telemetry review, her rhythm looks much improved at present. EKG performed this morning on 09/13/16 at 9:55 AM revealed atrial fibrillation at 90 bpm with a PVC versus aberrantly conducted complex. Mild nonspecific T- wave flattening was noted. The patient's chest x-ray revealed stable postoperative findings with mild pneumomediastinum. Upon interviewing the patient she feels very well. She notes no complaints with the exception of mild tenderness at her thoracoscopy sites. History PAST MEDICAL HISTORY: 1. Chronic persistent atrial fibrillation 2. Mild aortic stenosis 3. 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 Paraesophageal hernia repair performed 09/12/16 2. Past knee surgeries 3. Laminectomy 4. Left shoulder replacement 5. Hysterectomy FAMILY HISTORY: stroke SOCIAL HISTORY: Non smoker , no alchohol Review Of Systems See above for pertinent positives & negatives. A total of 10 systems reviewed and were otherwise negative. Allergies Coded Allergies: Penicillins (Verified Allergy, Intermediate, SWELLS, 09/12/16) Sulfa Antibiotics (Verified Allergy, Intermediate, SWELLING, 09/12/16) OFELIA Inhibitors (Verified Allergy, Mild, UNKNOWN, 09/12/16) Metronidazole (Verified Allergy, Unknown, UNKNOWN, 09/12/16) Quinolones (Verified Allergy, Unknown, unknown, 09/12/16) Alendronate (Verified Adverse Reaction, Mild, COUGH, 09/12/16) Medications Reported Home Medications Medications Dose Route/Sig Max Daily Dose Days Date Category Protonix (Pantoprazole Sodium) 40 Mg Tab 40 Mg PO QAM 09/09/16 Reported Toprol-Xl (Metoprolol Succinate) 25 Mg Tabcr 25 Mg PO TID 09/09/16 Reported Aspirin Ec (Aspirin) 81 Mg Tab 81 Mg PO Q2D 09/08/16 Reported Tylenol (Acetaminophen) 325 Mg Tab 650 Mg PO Q6 PRN 08/20/16 Reported Vitamin D3 (Cholecalciferol) 1,000 Unit Tab 1 Tab PO QAM 90 08/20/16 Reported Osteo Bi-Flex Joint Shiel (Misc Natural Products) 1 Tab Tab 1 Tab PO QAM 08/20/16 Reported Lasix (Furosemide) 20 Mg Tab 20 Mg PO Q2D 08/20/16 Reported Vitamin C (Ascorbic Acid) 1,000 Mg Tab 1,000 Mg PO QAM 08/20/16 Reported Calcium 600+D3 600-800 mg-Unit (Calcium Carbonate-Cholecalcife) 1 Tab Tab 1 Tab PO BID 08/20/16 Reported Preservision Areds 2 (Multiple Vitamins W/ Minerals) 1 Cap Cap 1 Cap PO QAM 08/20/16 Reported Digoxin 0.125 Mg Tab 0.125 Mg PO QAM 08/20/16 Reported Colace (Docusate Sodium) 100 Mg Cap 1 Cap PO BID 30 08/20/16 Reported Prevagen (Apoaequorin) 10 Mg Cap 1 Tab PO UD 08/20/16 Reported Imdur Ext Rel (Isosorbide Mononitrate) 30 Mg Ertab 30 Mg PO QAM 08/20/16 Reported Cerovite Senior (Multiple Vitamins W/ Minerals) 1 Tab Tab 1 Tab PO QAM 10/30/15 Reported Cymbalta (Duloxetine HCl) 30 Mg Cap 30 Mg PO NOON 10/30/15 Reported Lyrica (Pregabalin) 75 Mg Cap 75 Mg PO BID 10/30/15 Reported Vitamin B-12 (Cyanocobalamin) 250 Mcg Tab 250 Mcg PO QAM 10/30/15 Reported Physical Exam General Appearance: Alert and Oriented x3. NAD. Head: Normocephalic Atraumatic. Eyes: PERRLA, EOMI, conjunctiva and sclera clear Neck: Supple. No carotid bruits noted. No JVD. No HJD. Respiratory: Breath sounds clear to auscultation bilaterally. No w/r/r. Cardiovascular: irregular rhythm, 1/6 murmur Abdomen: Normal bowel sounds, soft nontender. no abdominal bruits. Extremities: No edema, no clubbing or cyanosis. distal pulses 2/4 bilaterally. Neuro: No focal deficits. Psychiatric: Normal affect. Data Last Resulted 08/22/16 08:50 Red Blood Count 3.94, Mean Corpuscular Volume 102.0, Mean Corpuscular Hemoglobin 35.0, Mean Corpuscular Hemoglobin Concent 34.3, Mean Platelet Volume 10.2, Neutrophils (%) (Auto) 70.1, Lymphocytes (%) (Auto) 18.4, Monocytes (%) ( Auto) 9.2, Eosinophils (%) (Auto) 1.7, Basophils (%) (Auto) 0.4, Neutrophils # ( Auto) 3.67, Lymphocytes # (Auto) 0.96, Monocytes # (Auto) 0.48, Eosinophils # ( Auto) 0.09, Basophils # (Auto) 0.02 Last Resulted 08/22/16 08:50 EKG: as per HPI Telemetry reviewed: as per HPI Assessment & Plan Impression: 89-year-old female 1. Atrial fibrillation controlled ventricular rate 2. Asymptomatic PVCs 3. Mild hypomagnesemia 4. History of mild aortic stenosis 5. Postoperative day one status post op paraesophageal hernia repair Plan: Recommend treatment with 1 g of IV magnesium prior to discharge. Then DC on prior cardiac medications including metoprolol and digoxin. She is to resume her prior home dose of aspirin every other day.
== END 2016-08-22 19:35 | disposition home or self-care (01) | DRG 392 ==
LOC: ENRESERVDT → ENRESERVTM → C.EDB 02:19 → C.MED 05:04
PROVIDERS: ADMIT Hospitalist; ATTEND Internal Medicine
DX: K44.9 Diaphragmatic hernia without obstruction or gangrene (principal); K92.2 Gastrointestinal hemorrhage, unspecified; N39.0 Urinary tract infection, site not specified; I50.32 Chronic diastolic (congestive) heart failure; B96.20 Unspecified Escherichia coli [E. coli] as the cause of diseases classified elsewhere; R07.9 Chest pain, unspecified; R91.1 Solitary pulmonary nodule; I48.2 Chronic atrial fibrillation; I11.0 Hypertensive heart disease with heart failure; I27.2 Other secondary pulmonary hypertension; M14.60 Charcot's joint, unspecified site; M81.0 Age-related osteoporosis without current pathological fracture; Z79.899 Other long term (current) drug therapy; Z82.3 Family history of stroke

== ENCOUNTER → 2016-08-26 | Outpatient (CLI) | payer OTHER ==
[~2016-08-26] MED LIST changes: +ACET-1311 PO; +APOA1CAP PO; +ASCO10003 PO; +ASPI81TA28 PO; +CALC-449 PO; +CHOL1000 PO; -CHOL100010 PO; +DOCU-94 PO; +FURO-85 PO; +ISOS30TA3 PO; +LNX125 PO; +MCRB100 PO; +METO25TA3 PO; -MISCCAP69 PO; +MISCTAB30 PO; +MULT60CA PO; +PANT1TAB48 PO; +PANT40TA PO; -PRLSR20 PO; +TPRSR25 PO; -TRAM-10 PO
--- NOTE | 2016-08-26 10:16 | DIAGNOSTIC IMAGING REPORT ---
CHEST 2 VIEWS ROUTINE CLINICAL HISTORY: K44.9 Paraesophageal [id number] headache COMPARISON STUDY: 08/20/2016 FINDINGS: Hiatal hernia. Stable cardia megaly. Diaphragms smooth. Lungs appear clear. Severe degenerative change right shoulder. Left shoulder arthroplasty. IMPRESSION: Fixed hiatal hernia. Moderate cardiomegaly. Improved components of congestive failure compared to the prior study. Electronically signed by: Patrick Rdz M.D. 08/26/2016 10:15 AM Dictated Date/Time: 08/26/2016 10:05 AM
== END | disposition home or self-care (01) ==
LOC: C.RAD1850 09:34
PROVIDERS: ATTEND Surgery
DX: K44.9 Diaphragmatic hernia without obstruction or gangrene (principal)

== ENCOUNTER 2016-09-08 19:56 | Emergency (ER) | payer OTHER ==
[~2016-09-08] VITALS: Ht 147.3 cm; Wt 63.6 kg
[~2016-09-08 19:56] MED LIST changes: -ASPI81TA28 PO; -METO25TA3 PO; -PANT40TA PO
[2016-09-08 20:11] VITALS: TEMP 36.6; Ht 147.3 cm; Wt 63.6 kg
[2016-09-08 21:37] LABS: MANUAL MICROSCOPIC REQUIRED? YES; REVIEW REQ? NO; URINE APPEARANCE CLEAR (CLEAR); URINE BILIRUBIN NEG (NEG); URINE COLOR YELLOW; URINE NITRITE NEG (NEG); URINE PH 5.5 (4.5-7.5); URINE SPECIFIC GRAVITY 1.025 (1.000-1.030); UROBILINOGEN NEG (NEG)
[2016-09-08 21:45] LABS: BASO % 0.3 %; BASO ABS # 0.02 K/uL (0-0.2); COMPLETE YES; EOS % 1.6 %; HEMATOCRIT 46.8 % (37-47); IG% 0.2 %; LYMPH % 22.7 %; LYMPH ABS # 1.42 K/uL (1.2-3.4); MEAN CELL VOLUME 102.9 fL (80-100); MEAN CORPUSCULAR HEMOGLOBIN 35.4 pg (25-34); MEAN CORPUSCULAR HGB CONC 34.4 g/dl (32-36); MEAN PLATELET VOLUME 10.4 fL (7.4-10.4); MONO % 6.2 %; PLATELET COUNT 232 K/uL (130-400); RED BLOOD COUNT 4.55 M/uL (4.2-5.4); WHITE BLOOD COUNT 6.25 K/uL (4.8-10.8)
[2016-09-08 22:06] LABS: URINE BACTERIA NEG (NEG); URINE RBC 0-4 /hpf (0-4)
[2016-09-08 22:07] LABS: ZZUR CULT IF INDIC CLEAN CATCH NO
[2016-09-08 22:12] LABS: BUN/CREATININE RATIO 26.7 (10-20); CALCIUM 10.3 mg/dl (8.5-10.1); CREATININE 0.97 mg/dl (0.60-1.20); POTASSIUM 4.1 mmol/L (3.5-5.1)
[2016-09-08] MEDS ORDERED: ASPI81TA28 PO (22:28)
[2016-09-08] MEDS ORDERED: SODIUM CHLORIDE 0.9% 1000ML 250 ML IV STA (22:33)
[2016-09-08] MEDS ORDERED: SODIUM CHLORIDE 0.9% 1000ML 1,000 ML IV STA (22:33)
[2016-09-08 22:55] LABS: CKMB/CK RATIO 1.4 (0-3.0)
[2016-09-08 22:57] LABS: INR 1.1 (0.9-1.1); PROTHROMBIN TIME (PATIENT) 11.4 SECONDS (9.0-12.0)
--- NOTE | 2016-09-08 23:11 | EMERGENCY ROOM VISIT NOTE ---
History Report prepared by Axel: Ladarius Suero Under the Supervision of: Dr. Albert Jordan M.D. First contact with patient: 22:24 Chief Complaint: GI ASSESSMENT Stated Complaint: HIATAL HERNIA, Nursing Triage Summary: patient with history of hital hernia and is having surgery on October 02. has been having increased pain in the upper chest and into the shoulder. which is what happens when she gets pain. surgeon states pain is due to the hernia being in the diapharm area. History of Present Illness The patient is a 89 year old female who presents to the Emergency Room with complaints of improving left arm, shoulder, and back pain starting this afternoon. She currently rates her discomfort as an 8/10 in severity but is now asymptomatic. The family states that the patient additionally has been feeling nauseous. The family states that the patient has a hiatal hernia, and she has felt like this recently two weeks ago, and she was admitted. The patient denies any fevers. The family states that the patient currently takes a baby aspirin every other day. No trauma or injury. No abdominal pain or diarrhea. No urinary symptoms. Source of History: patient, family Onset: this afternoon Position: shoulder (left), arm (left), back Symptom Intensity: 8/10 Timing: other (improving) Associated Symptoms: + nausea, No fevers Review of Systems See HPI for pertinent positives & negatives. A total of 10 systems reviewed and were otherwise negative. Past Medical & Surgical Medical Problems: (1) Acute upper GI bleed (2) Biatrial enlargement (3) Chronic atrial fibrillation (4) Cystocele repair (5) Diastolic heart failure (6) Diverticulosis (7) Hiatal hernia (8) HTN (hypertension) (9) Hypertension (10) Neuropathic arthropathy (11) Nonrheumatic mitral (valve) stenosis (12) Osteoarthritis (13) Osteoporosis (14) Paraesophageal hernia (15) Pulmonary HTN Surgical Problems: (1) H/O knee surgery (2) History of laminectomy (3) History of left shoulder replacement (4) History of partial hysterectomy (5) History of shoulder surgery (6) History of total bilateral knee replacement Old medical records were reviewed. Nurse's notes were reviewed and I agree with. Family History Stroke Social History Smoking Status: Never Smoker Alcohol Use: none Drug Use: none Marital Status: Housing Status: lives with significant other Occupation Status: retired Current/Historical Medications Scheduled Apoaequorin (Prevagen), 1 DROP PO UD Ascorbic Acid (Vitamin C), 1,000 MG PO DAILY Aspirin (Aspirin Ec), 81 MG PO Q2D Calcium Carbonate-Cholecalcife (Calcium 600+D3 600-800 mg-Unit), 1 TAB PO BID Cholecalciferol (Vitamin D3), 1 TAB PO DAILY Cyanocobalamin (Vitamin B-12), 250 MCG PO DAILY Digoxin (Digoxin), 0.125 MG PO DAILY Docusate Sodium (Colace), 1 CAP PO BID Duloxetine HCl (Cymbalta), 30 MG PO DAILY Isosorbide Mononitrate Ext Rel (Imdur Ext Rel), 30 MG PO QAM Metoprolol Succinate (Metoprolol Succinate ER), 25 MG PO TID Misc Natural Products (Osteo Bi-Flex Joint Shiel), 1 TAB PO DAILY Multiple Vitamins W/ Minerals (Cerovite Senior), 1 TAB PO DAILY Multiple Vitamins W/ Minerals (Preservision Areds 2), 1 CAP PO DAILY Pantoprazole (Protonix), 1 TAB PO DAILY Pregabalin (Lyrica), 75 MG PO BID Scheduled PRN Acetaminophen (Tylenol), 650 MG PO Q6 PRN for Pain Furosemide (Lasix), 20 MG PO Q2D PRN for cough,wt gain,edema Allergies Coded Allergies: Penicillins (Verified Allergy, Intermediate, SWELLS, 09/08/16) Sulfa Antibiotics (Verified Allergy, Intermediate, SWELLING, 09/08/16) Metronidazole (Verified Allergy, Mild, 09/08/16) Quinolones (Verified Allergy, Mild, 09/08/16) Alendronate (Verified Adverse Reaction, Mild, COUGH, 09/08/16) Physical Exam Vital Signs Date Time Temp Pulse Resp B/P Pulse Ox O2 Delivery O2 Flow Rate FiO2 09/09/16 01:16 18 120/69 95 Room Air 09/09/16 00:26 112 22 113/76 92 Room Air 09/08/16 22:47 101 20 115/64 94 Room Air 09/08/16 22:43 105 09/08/16 21:32 92 20 172/87 93 Room Air 09/08/16 20:11 36.6 113 20 143/110 94 Room Air Physical Exam General: Non-ill appearing older woman in no acute distress. Denies any pain at present HEENT: Normal cephalic atraumatic. Pupils are equal round and reactive to light. Extraocular movements are intact. Oropharynx is pink with moist mucous membranes. No swelling of the mouth lips or tongue. Neck: Supple with a midline trachea. No meningeal signs or stiffness, no JVD or bruits. No Stridor. Chest: Clear to auscultation bilaterally. No wheezes or rhonchi. No increased work of breathing. Heart: irregularly irregular rate and rhythm and mildly tachycardic Abdomen: Soft nontender, nondistended without rebound guarding or rigidity. Extremities: No cyanosis clubbing or edema. No calf tenderness or assymetry Spine/Back. Non tender to palpation. No CVA tenderness Skin: Good turgor without rashes. Neurologic exam: Cranial nerves two through 12 are intact. Motor and sensation are intact and symmetrical throughout. Medical Decision & Procedures ER Provider Diagnostic Interpretation: Chest x-ray per my interpretation reveals large hiatal hernia. No change compared to old. No pneumonia or pneumothorax seen. Laboratory Results 09/08/16 21:30 Red Blood Count 4.55, Mean Corpuscular Volume 102.9, Mean Corpuscular Hemoglobin 35.4, Mean Corpuscular Hemoglobin Concent 34.4, Mean Platelet Volume 10.4, Neutrophils (%) (Auto) 69.0, Lymphocytes (%) (Auto) 22.7, Monocytes (%) ( Auto) 6.2, Eosinophils (%) (Auto) 1.6, Basophils (%) (Auto) 0.3, Neutrophils # ( Auto) 4.31, Lymphocytes # (Auto) 1.42, Monocytes # (Auto) 0.39, Eosinophils # ( Auto) 0.10, Basophils # (Auto) 0.02 09/08/16 21:30 Test 09/08/16 21:23 09/08/16 21:30 09/08/16 22:38 Urine Color YELLOW Urine Appearance CLEAR (CLEAR) Urine pH 5.5 (4.5-7.5) Urine Specific Piercy 1.025 (1.000-1.030) Urine Protein NEG (NEG) Urine Glucose (UA) NEG (NEG) Urine Ketones NEG (NEG) Urine Occult Blood NEG (NEG) Urine Nitrite NEG (NEG) Urine Bilirubin NEG (NEG) Urine Urobilinogen NEG (NEG) Urine Leukocyte Esterase SMALL (NEG) Urine RBC 0-4 /hpf (0-4) Urine WBC 1-5 /hpf (0-5) Urine Epithelial Cells 0-5 /lpf (0-5) Urine Bacteria NEG (NEG) White Blood Count 6.25 K/uL (4.8-10.8) Red Blood Count 4.55 M/uL (4.2-5.4) Hemoglobin 16.1 g/dL (12.0-16.0) Hematocrit 46.8 % (37-47) Mean Corpuscular Volume 102.9 fL (80-100) Mean Corpuscular Hemoglobin 35.4 pg (25-34) Mean Corpuscular Hemoglobin Concent 34.4 g/dl (32-36) Platelet Count 232 K/uL (130-400) Mean Platelet Volume 10.4 fL (7.4-10.4) Neutrophils (%) (Auto) 69.0 % Lymphocytes (%) (Auto) 22.7 % Monocytes (%) (Auto) 6.2 % Eosinophils (%) (Auto) 1.6 % Basophils (%) (Auto) 0.3 % Neutrophils # (Auto) 4.31 K/uL (1.4-6.5) Lymphocytes # (Auto) 1.42 K/uL (1.2-3.4) Monocytes # (Auto) 0.39 K/uL (0.11-0.59) Eosinophils # (Auto) 0.10 K/uL (0-0.5) Basophils # (Auto) 0.02 K/uL (0-0.2) RDW Standard Deviation 56.2 fL (36.4-46.3) RDW Coefficient of Variation 14.9 % (11.5-14.5) Immature Granulocyte % (Auto) 0.2 % Immature Granulocyte # (Auto) 0.01 K/uL (0.00-0.02) Prothrombin Time 11.4 SECONDS (9.0-12.0) Prothromb Time International Ratio 1.1 (0.9-1.1) Activated Partial Thromboplast Time 25.2 SECONDS (21.0-31.0) Partial Thromboplastin Ratio 1.0 Anion Gap 10.0 mmol/L (3-11) Est Creatinine Clear Calc Drug Dose 31.6 ml/min Estimated GFR () 60.4 Estimated GFR (Non- 52.1 BUN/Creatinine Ratio 26.7 (10-20) Calcium Level 10.3 mg/dl (8.5-10.1) Total Bilirubin 0.4 mg/dl (0.2-1) Aspartate Amino Transf (AST/SGOT) 28 U/L (15-37) Alanine Aminotransferase (ALT/SGPT) 22 U/L (12-78) Alkaline Phosphatase 111 U/L (45-117) Total Creatine Kinase 65 U/L (26-192) Creatine Kinase MB 0.9 ng/ml (0.5-3.6) Creatine Kinase MB Ratio 1.4 (0-3.0) Total Protein 8.3 gm/dl (6.4-8.2) Albumin 4.1 gm/dl (3.4-5.0) Globulin 4.2 gm/dl (2.5-4.0) Albumin/Globulin Ratio 1.0 (0.9-2) Lipase 1433 U/L (73-393) Digoxin Level 0.5 ng/ml (0.8-2.0) Bedside Troponin I 0.000 ng/ml (0-0.045) Lab results as reviewed by me. Medications Administered Medications (Trade) Dose Ordered Sig/Cynthia Route Start Time Stop Time Status Last Admin Dose Admin Sodium Chloride 250 ml @ 999 mls/hr Q16M STAT IV 09/08/16 22:33 09/08/16 22:48 DC 09/08/16 22:48 999 MLS/HR Sodium Chloride (Nss 1000ml) 1,000 ml @ 100 mls/hr Q10H STAT IV 09/08/16 22:33 09/09/16 08:32 09/08/16 22:48 100 MLS/HR ECG Indication: other (left arm and shoulder pain) Rate (beats per minute): 99 Rhythm: atrial fibrillation Findings: nonspecific-ST abn, other (non-specific t-wave abnormality) Comparison ECG Date: 08/22/16 Change: no significant change ED Course 2224: Past medical records reviewed. The patient was evaluated in room B4, and a complete history and physical examination were performed. 2233: Sodium Chloride 1000 ml @ 100 mls/hr IV, Sodium Chloride 250 ml @ 999 mls/ hr IV 0006: I reassessed the patient, and she denies any pain, and she states that she is ready to go home. 0023: I discussed the patient's case with Dr. Adames, Surgery, and he states that of the patient is asymptomatic, then she could ho home, but he agrees with observing her as well. He states that if she would be able to eat then she would be safe for follow up. 0036: I reassessed the patient, and I discussed the plan with her and her family. The patient just wants to go home, and she understands the risks as does the family. She just wants to go home. She will be discharged home. Medical Decision Differentials include, but are not limited to; cardiac disease, rapid A-fib, gastric outlet obstruction, volvulus, hiatal hernia This patient comes in as described above. She has a known hiatal hernia where her stomach is within the chest cavity She's had gastric volvulus related to this and is scheduled to have surgery. She had an episode where she has some mild symptoms earlier compared to her previous. She says she feels better now and denies any symptoms. At present she denies any chest pain or nausea or fever her abdomen is benign. EKG shows atrial fibrillation with a rate about 100 and has no acute ischemic changes. Her chest x-ray is unchanged and shows a large hernia. She has no acute electrolyte or metabolic abdomen alleys. Her lipase is moderately elevated at just over thousand but she has no signs to suggest pancreatitis at present. she did receive some IV hydration while she was here she strongly desires to go home. I did recommend that we admit her for observation I told her that at this point with her symptoms she probably does not have a volvulus at present but is certainly at risk for having this and she will likely her surgery moved up. The patient adamantly declines admission and desires to go home. I discussed this also with the family who agrees with this and they will bring her back if she has further problems. I encouraged close follow-up with her surgeon. I did discuss case with Dr. Adames who felt that if she was asymptomatic go home with close follow-up as well. She was able drink fluids and eat some crackers without symptoms before she went home and again was encouraged close follow-up and declined admission. Consults Time Called: 20 Consulting Physician: Dr. Adames, Surgery Returned Call: [phone] I discussed the patient's case with Dr. Adames, Surgery, and he states that of the patient is asymptomatic, then she could ho home, but he agrees with observing her as well. He states that if she would be able to eat then she would be safe for follow up. Impression Primary Impression: Precordial chest pain Additional Impression: Hiatal hernia Scribe Attestation The scribe's documentation has been prepared under my direction and personally reviewed by me in its entirety. I confirm that the note above accurately reflects all work, treatment, procedures, and medical decision making performed by me. Departure Information Dispostion Home / Self-Care Referrals Brittni Echeverria D.O. (PCP) Forms HOME CARE DOCUMENTATION FORM, IMPORTANT VISIT INFORMATION Patient Instructions My [facility] Additional Instructions Rest. Drink plenty of fluids. Mild diet. Return immediately to the ER if you have recurrence of symptoms, chest pain, vomiting, nausea, shortness breath, any new problems concerns Call Dr. Narvaez's office tomorrow and get rechecked by your doctor or Dr. Narvaez in 1-2 days and you will need to move your surgery up likely Problem Qualifiers
[2016-09-09 00:26] VITALS: PULSE 112
[2016-09-09] MEDS ORDERED: DIGOXIN 0.125 MG TAB PO ONE (00:44)
[2016-09-09 01:16] VITALS: BP 120/69; O2SAT 95
[2016-09-09 01:36] LABS: MAGNESIUM 2.1 mg/dl (1.8-2.4)
--- NOTE | 2016-09-09 07:28 | DIAGNOSTIC IMAGING REPORT ---
SINGLE VIEW CHEST CLINICAL HISTORY: Atypical chest pain. FINDINGS: An AP, portable, upright chest radiograph is compared to study dated 08/26/2016 and correlated with chest CT dated 08/20/2016. The examination is degraded by portable technique and patient rotation. The heart is enlarged and there is atherosclerotic calcification of the thoracic aorta. The pulmonary vasculature is noncongested. Chronic residual thickening is unchanged. There is mild bibasilar atelectasis. No airspace consolidation is seen typical for pneumonia and there is no large pleural effusion. No pneumothorax is seen. The skeletal structures are osteopenic. A left shoulder arthroplasty is in place. There is advanced arthritic change and chronic deformity seen in the right shoulder. Lumbar fusion hardware is partially imaged. IMPRESSION: Cardiomegaly and chronic parenchymal changes as above. There is no acute cardiopulmonary abnormality. Electronically signed by: Maciej Bustillo M.D. 09/09/2016 7:26 AM Dictated Date/Time: 09/09/2016 7:25 AM
[2016-09-09] MEDS ORDERED: DIGOXIN 0.125 MG TAB PO SCH (09:00)
[2016-09-09] MEDS ORDERED: PANT40TA PO (16:16)
[2016-09-09] MEDS ORDERED: METO25TA3 PO (16:16)
== END 2016-09-09 01:24 | disposition home or self-care (01) ==
LOC: C.EDB 19:57
DX: R07.2 Precordial pain (principal); K46.9 Unspecified abdominal hernia without obstruction or gangrene; I10 Essential (primary) hypertension; I48.91 Unspecified atrial fibrillation; I50.30 Unspecified diastolic (congestive) heart failure; I34.1 Nonrheumatic mitral (valve) prolapse; K57.90 Diverticulosis of intestine, part unspecified, without perforation or abscess without bleeding; G62.9 Polyneuropathy, unspecified; M19.90 Unspecified osteoarthritis, unspecified site; Z87.19 Personal history of other diseases of the digestive system; Z90.710 Acquired absence of both cervix and uterus; Z96.612 Presence of left artificial shoulder joint; Z98.890 Other specified postprocedural states; Z79.82 Long term (current) use of aspirin; Z79.899 Other long term (current) drug therapy; Z88.0 Allergy status to penicillin; Z88.2 Allergy status to sulfonamides; Z88.8 Allergy status to other drugs, medicaments and biological substances; Z82.3 Family history of stroke

== ENCOUNTER 2016-09-12 05:10 | Inpatient (IN) | payer OTHER ==
[2016-09-09 16:17] VITALS: BMI 27.0
[~2016-09-12] VITALS: Ht 149.9 cm; Wt 64.3 kg
[~2016-09-12 05:10] MED LIST changes: +ASPI81TA28 PO; -MCRB100 PO; +METO25TA3 PO; -PANT1TAB48 PO; +PANT40TA PO; -TPRSR25 PO
[2016-09-12 05:46] VITALS: BP 130/79; PULSE 92; TEMP 36.4; O2SAT 94; Ht 149.9 cm; Wt 64.3 kg
[2016-09-12] MEDS ORDERED: LACTATED RINGER'S 1000ML 1,000 ML IV SCH (06:00)
[2016-09-12] MEDS ORDERED: PROPOFOL IV EMULSION 10 MG/ML 20 ML VIAL IV ONE (06:17)
[2016-09-12] MEDS ORDERED: LIDOCAINE HCL 2% 2 ML VIAL (20MG/ML) ONE (06:17)
[2016-09-12] MEDS ORDERED: ROCURONIUM BROMIDE 10 MG/ML 5 ML VIAL ONE (06:17)
[2016-09-12] MEDS ORDERED: FENTANYL CITRATE INJ 50 MCG/1 ML 2 ML VIAL ONE ×2 (06:18→09:11)
--- NOTE | 2016-09-12 06:54 | History & Physical Bridge Note ---
H&P Re-Evaluation Bridge Note: I have examined the patient, reviewed the History & Physical and in the interval since the performance of the History & Physical I have noted the following changes of clinical significance: Originally scheduled for a robotic repair, but had another episode of torsion this past weekend. Robot not available today. Will proceed with a laparoscopic repair today. Long discussion with patient and family today.No changes noted
[2016-09-12] MEDS ORDERED: MINERAL OIL LIGHT 10 ML BTL ONE (07:33)
[2016-09-12] MEDS ORDERED: ATROPINE SULFATE 0.1 MG/ML 5ML SYR IV PRN (07:45)
[2016-09-12] MEDS ORDERED: LABETALOL HCL IV 5 MG/ML 20ML IV PRN (07:45)
[2016-09-12] MEDS ORDERED: ONDANSETRON INJ 2 MG/ML 2 ML VIAL IV PRN ×2 (07:45→10:45)
[2016-09-12] MEDS ORDERED: METOPROLOL TARTRATE 1 MG/ML VIAL ONE (07:56)
[2016-09-12] MEDS ORDERED: LABETALOL HCL IV 5 MG/ML 20ML IV ONE (07:56)
[2016-09-12] MEDS ORDERED: ESMOLOL HCL 10 MG/ML 10 ML VIAL ONE (07:56)
[2016-09-12] MEDS ORDERED: CLINDAMYCIN PHOS 150 MG/ML 2 ML VIAL ONE (08:08)
[2016-09-12] MEDS ORDERED: PHENYLEPHRINE HCL INJ 10 MG/ML VIAL ONE (08:08)
[2016-09-12] MEDS ORDERED: PHENYLEPHRINE 100MCG/ML 5ML SYR ONE (08:08)
[2016-09-12] MEDS ORDERED: ETOMIDATE 2 MG/ML 20 ML VIAL IV ONE (09:27)
[2016-09-12] MEDS ORDERED: ONDANSETRON INJ 2 MG/ML 2 ML VIAL ONE (10:06)
[2016-09-12] MEDS ORDERED: OXYCODONE HCL IR 5 MG TAB (IMMEDIATE RELEASE) PO PRN (10:45)
[2016-09-12] MEDS ORDERED: MoRPHine SULFATE 2 MG/ML CARP IV PRN ×2 (10:45→11:45)
--- NOTE | 2016-09-12 11:04 | OPERATIVE REPORT ---
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 POSTOPERATIVE DIAGNOSIS: Same. PROCEDURE: Laparoscopic repair of paraesophageal hernia. SURGEON: Dr. Gu. MOBILE PHLEBOTOMIST: GUERO Chen. ANESTHESIA: General anesthesia with endotracheal intubation. INDICATION FOR PROCEDURE AND FINDINGS: Annette Harris will be 89 years old in October. She has presented on at least 3 separate occasions with torsion of her stomach, it was relieved. She has a large paraesophageal hernia and I have had multiple discussions with the family. She was admitted twice in the last month with torsion that resolved. I explained to the patient and her family that this is a life-threatening problem and that I think that a repair should be offered. On 09/12/2016, the patient was brought to the operating room and underwent an uncomplicated laparoscopic repair of this paraesophageal hernia. I was able to reduce her stomach back into the chest fairly easily, but I excised the sac which was rather large. I then approximated her diaphragmatic crura. I also put some sutures in to tack the stomach. She tolerated it well. Her blood loss was negligible. PROCEDURE IN DETAIL: The patient was brought to the operating room and laid in supine position. General anesthesia induced and endotracheal intubation was performed. A Peters catheter was placed and appropriate timeout was called and prophylactic antibiotics were given. The anterior abdomen was then prepped and draped in the usual sterile fashion. I made 5 separate port sites. I had three 5 mm ports and two 10 mm ports. The patient had no adhesions. She had a very large hernia. I placed a right lateral 5 mm port and placed a Pretzel liver retractor and pulled the left lobe of the liver up. This exposed our diaphragmatic hiatus quite nicely. I then placed the 10 mm port just superior to the umbilicus. It should be noted this patient is short and did not have much space between her xiphoid and her umbilicus. I then placed another 10 mm port to the left several centimeters and then a 5 mm port more inferior and far to the left. I placed the 30-degree camera in the 10 mm port which was to the left of the midline. I then used graspers and I was able to reduce the stomach and omentum out nicely; however, her stomach was quite stuck. It was my hope we could simply reduce it but I ended up having to take the sac. I could easily identify the anterior diaphragmatic hiatus and I the sac and going up I then took out much of the sac on the right side; however, she still had marked adhesions on the left with attachments. For this reason, I then the short gastrics with the Harmonic scalpel, and with retraction, this would bring me all the way up into the diaphragmatic hiatus. I then cleaned off the hiatus along the left side. Posteriorly, it was quite stuck. We were able to finally meticulously clean these off using the Harmonic scalpel. I then dissected the sac on the left side and I then met my original dissection and removed the entire sac. The stomach reduced quite nicely into the abdominal cavity at that point. 0 silk sutures were then used in a [id number] fashion x3 to reapproximate the posterior crura. This came together nicely. It really was not under much tension at all. I did leave some space so I did not impinge it on the esophagus. I then put 2 separate 0 silk sutures into the gastric fundus onto the diaphragm anteriorly and this looked quite good and under no tension. We really had no blood loss. I did insufflate air and there was no leaking from the distal esophagus. I then used an Endo Stitch to close the two 10 mm ports. 4-0 Monocryl was used to close the skin at the 5 incisions. She tolerated it well and was extubated in the room. I am going to watch this patient in telemetry and monitor her because she does have atrial fibrillation which is chronic. Her heart rate was a bit difficult to control. I attest to the content of the Intraoperative Record and any orders documented therein. Any exceptio ns are noted below.
[2016-09-12] MEDS ORDERED: HYDROmorphone INJ 1 MG/ML SYR ONE (11:17)
--- NOTE | 2016-09-12 11:20 | Anesthesiology Progress Note ---
Anesthesia Post Op Note Date & Time Sep 12, 2016 at 11:20 Vital Signs Pain Intensity: 0 Vital Signs Past 12 Hours Date Time Temp Pulse Resp B/P Pulse Ox O2 Delivery O2 Flow Rate FiO2 09/12/16 11:10 75 16 132/85 97 Nasal Cannula 4 09/12/16 11:00 73 16 127/84 98 Nasal Cannula 4 09/12/16 10:50 119 16 126/74 98 Mask 10 09/12/16 10:40 119 16 128/89 98 Mask 10 09/12/16 10:31 36. 105 16 121/83 96 Mask 10 09/12/16 05:46 36.4 92 20 130/79 94 Notes Mental Status: alert / awake / arousable, participated in evaluation Pt Amnestic to Procedure: Yes Nausea / Vomiting: adequately controlled Pain: adequately controlled Airway Patency, RR, SpO2: stable & adequate BP & HR: stable & adequate Hydration State: stable & adequate Anesthetic Complications: no major complications apparent
[2016-09-12] MEDS: HYDROmorphone INJ 2 MG/ML SYR/VIAL IV PRN ×4 (11:21→11:36)
--- NOTE | 2016-09-12 11:27 | DIAGNOSTIC IMAGING REPORT ---
CHEST ONE VIEW PORTABLE HISTORY: s/p hiatal hernia repair COMPARISON: Chest 09/08/2016. FINDINGS: Interval development of left chest wall and bilateral neck base subcutaneous emphysema. No pneumothorax. There appears to be pneumomediastinum. The heart is enlarged. There are low lung volumes. No evidence for pulmonary edema. Patchy densities at the left lung base. There is a left humeral head prosthesis. Severe degenerative changes within the right shoulder. Right upper abdominal paraspinal lucency may represent retroperitoneal gas. IMPRESSION: 1. Small amount of pneumomediastinum with associated neck base and left chest wall subcutaneous emphysema. Some of the gas may extend into the upper retroperitoneal space. This is new from the 09/08/2016 examination. However, if the patient has had hiatal hernia repair in the interval, then these findings would not be unexpected. 2. Patchy densities within the base of the left lower lobe which could be due to postoperative change or developing pneumonia. Continued follow-up is recommended. 3. Stable cardiomegaly. Electronically signed by: Cb Campbell M.D. 09/12/2016 11:26 AM Dictated Date/Time: 09/12/2016 11:21 AM
[2016-09-12] MEDS ORDERED: GLYCOPYRROLATE INJ 0.2 MG/ML VIAL ONE (13:23)
[2016-09-12] MEDS ORDERED: NEOSTIGMINE METHYLSULFATE 5 MG/5 ML SYR ONE (13:23)
[2016-09-12] MEDS: D5W AND 1/2NSS 1,000 ML IV SCH ×2 (14:42→21:26)
[2016-09-12] MEDS: ACETAMINOPHEN IV 1,000 MG in EMPTY BAG 0 ML IV SCH ×2 (14:49→21:32)
[2016-09-12] MEDS: METOCLOPRAMIDE HCL INJ 5 MG/ML 2 ML VIAL IV. SCH ×2 (14:51→21:36)
[2016-09-12] MEDS: KETOROLAC TROMETHAMINE 15 MG/ML VIAL IV. SCH ×2 (14:52→21:35)
[2016-09-12] MEDS: METOPROLOL SUCC 25MG EXT REL TAB PO SCH ×2 (14:53→21:27)
[2016-09-12] MEDS: CLINDAMYCIN IV 900 MG in DEXTROSE 5% ADD-VANTAGE 100ML 100 ML IV SCH ×2 (14:56→21:31)
[2016-09-12 15:56] VITALS: BP 115/73; PULSE 84; TEMP 36.6; O2SAT 93
[2016-09-12] MEDS ORDERED: DIGOXIN 0.125 MG TAB PO SCH (16:00)
[2016-09-12 18:59] VITALS: BP 105/71; PULSE 86; TEMP 36.7; O2SAT 96
[2016-09-12 20:00] VITALS: O2SAT 96
[2016-09-12] MEDS: DOCUSATE SODIUM 100 MG CAP PO SCH (21:27)
[2016-09-12] MEDS: PREGABALIN 75 MG CAP PO SCH (21:29)
[2016-09-12 23:58] VITALS: BP 118/80; PULSE 95; TEMP 36.8; O2SAT 97
[2016-09-13 00:01] VITALS: O2SAT 96; O2SAT 97
[2016-09-13 03:21] VITALS: BP 107/72; PULSE 76; TEMP 36.6; O2SAT 95
[2016-09-13 04:00] VITALS: O2SAT 95
[2016-09-13] MEDS: ACETAMINOPHEN IV 1,000 MG in EMPTY BAG 0 ML IV SCH (05:46)
[2016-09-13] MEDS: METOCLOPRAMIDE HCL INJ 5 MG/ML 2 ML VIAL IV. SCH (05:47)
[2016-09-13] MEDS: KETOROLAC TROMETHAMINE 15 MG/ML VIAL IV. SCH (05:47)
[2016-09-13] MEDS: D5W AND 1/2NSS 1,000 ML IV SCH (05:47)
[2016-09-13] MEDS: PREGABALIN 75 MG CAP PO SCH (08:44)
[2016-09-13] MEDS: METOPROLOL SUCC 25MG EXT REL TAB PO SCH (08:44)
[2016-09-13] MEDS: DOCUSATE SODIUM 100 MG CAP PO SCH (08:45)
[2016-09-13] MEDS ORDERED: PANTOprazole SOD 40 MG TAB PO SCH (09:00)
[2016-09-13] MEDS ORDERED: ISOSORBIDE MONONITRATE 30 MG TABCR PO SCH (09:00)
[2016-09-13] MEDS ORDERED: ENOXAPARIN 40 MG/0.4 ML SYR SQ SCH (09:00)
--- NOTE | 2016-09-13 09:20 | Discharge Instructions ---
Discharge Instructions Date of Service Sep 13, 2016. Admission Reason for Admission: Paraesophageal Hernia Discharge Discharge Diagnosis / Problem: Paraesophageal Hernia Discharge Goals Goal(s): Decrease discomfort Activity Recommendations Activity Limitations: as noted below Lifting Limitations: no more than 10 pounds 1. Do not eat anything that requires chewing--only eat liquids. 2. Do not lift objects heavier than 10 pound until seen by Dr. Gu in office. 3. You may shower and clean incision with soap and water. No tub baths. . Instructions / Follow-Up Instructions / Follow-Up 1. Appointment with Dr. Gu in 1-2 weeks. Office will call with date and time of appointment. Current Hospital Diet Patient's current hospital diet: Clear Liquid Diet Discharge Diet Recommended Diet: Full Liquid Diet Procedures Procedures Performed: Laparoscopic Repair of Paraesophageal Hiatal Hernia Pending Studies Studies pending at discharge: no Medical Emergencies . Who to Call and When: Medical Emergencies: If at any time you feel your situation is an emergency, please call 911 immediately. . Non-Emergent Contact Non-Emergency issues call your: Surgeon Call Non-Emergent contact if: you have a fever, your pain is not controlled, wound has increased drainage . "Provider Documentation" section prepared by Quincy Avila. VTE Core Measure Inpt VTE Proph given/why not?: Enoxaparin (Lovenox)SQ
--- NOTE | 2016-09-13 09:40 | DISCHARGE SUMMARY ---
DATE OF DISCHARGE: 09/13/2016. DISCHARGE DIAGNOSIS: Paraesophageal hernia. HOSPITAL COURSE: Annette Harris is a very nice 89-year-old female who has some low level dementia, but also had a very large paraesophageal hernia. Her stomach was in her chest and she presented with intermittent complaints that were suggestive of gastric torsion. She reduced each time; however, became more frequent. She did it twice in the last month. She has undergone endoscopy last summer which showed mucosal changes that were consistent with torsion. I was quite concerned about this and told the family despite her age I thought that reducing this and repairing her hiatal hernia would be worthwhile laparoscopically or robotically. On 09/12/2016 I brought the patient to the operating room. It should be noted I had her scheduled for 10/02/2016, however she developed another incidence of torsion in the Emergency Room. She reduced and was discharged from the Emergency Room, but I was quite concerned about her. We moved the surgery up to 09/12/2016. On 09/12/2016 the patient underwent an uncomplicated repair. I repaired her hiatal hernia and tacked her stomach. Her GE junction was well below the diaphragm. It should be noted that she had no symptoms of reflux. The patient did very well with negligible blood loss. She did not require narcotics. She was ambulating the morning after surgery. She was tolerating clear liquids quite nicely. We did watch her in telemetry because of her atrial fibrillation, but her rate was well controlled. She was discharged home on postop day 1. Her lungs were clear except for decreased breath sounds at the bases. She had no wheezing or rales. Her incisions are clean. Abdomen was soft with good sounds present. I will see her back in the office in about 10 days.
[2016-09-13 09:45] LABS: BASO % 0.2 %; BASO ABS # 0.01 K/uL (0-0.2); EOS % 2.7 %; IG% 0.2 %; LYMPH % 19.3 %; MEAN CELL VOLUME 102.9 fL (80-100); MONO % 6.9 %; NEUT % 70.7 %; PLATELET COUNT 161 K/uL (130-400); RED BLOOD COUNT 3.79 M/uL (4.2-5.4); WHITE BLOOD COUNT 5.18 K/uL (4.8-10.8)
[2016-09-13 10:08] LABS: ALB/GLOB RATIO 0.8 (0.9-2); CALCIUM 8.4 mg/dl (8.5-10.1); CREATININE 1.1 mg/dl (0.60-1.20); MAGNESIUM 1.7 mg/dl (1.8-2.4); POTASSIUM 3.9 mmol/L (3.5-5.1)
[2016-09-13 10:21] LABS: COMPLETE YES; MEAN CORPUSCULAR HGB CONC 33.1 g/dl (32-36)
[2016-09-13] MEDS ORDERED: MAGNESIUM SULFATE 1GM / D5W 1 GM in PREMIXED IN D5W 100 ML IV ONE (11:00)
--- NOTE | 2016-09-13 11:30 | Cardiology Consultation ---
Cardiology Consultation Date of Consultation: Sep 13, 2016 History of Present Illness Annette Lawrence is an 89 year old female seen in cardiology consultation per the request of Sonia Avila PA-C and Dr Gu for evaluation of chronic atrial fibrillation. The patient typically follows with Dr Barbour as an outpatient with history of chronic atrial fibrillation (not on coumadin due to high bleeding risk) and mild aortic stenosis. 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 She denies was for this last month and returned yesterday for repair which was performed by Dr. Gu. Overall the patient tolerated the procedure well. She has had episodes of atrial fibrillation at just above 100 bpm. Nursing was concerned regarding her telemetry findings today. On review for telemetry her predominant rhythm is atrial fibrillation with occasional PVCs. At that time her PVCs were frequent, and she did have an episode of atrial fibrillation with frequent PVCs in a pattern of ventricular bigeminy at 10:36 AM. The morphology of the PVCs looked wide and abnormal, her telemetry leads were since repositioned, and on repeat telemetry review, her rhythm looks much improved at present. EKG performed this morning on 09/13/16 at 9:55 AM revealed atrial fibrillation at 90 bpm with a PVC versus aberrantly conducted complex. Mild nonspecific T- wave flattening was noted. The patient's chest x-ray revealed stable postoperative findings with mild pneumomediastinum. Upon interviewing the patient she feels very well. She notes no complaints with the exception of mild tenderness at her thoracoscopy sites. History PAST MEDICAL HISTORY: 1. Chronic persistent atrial fibrillation 2. Mild aortic stenosis 3. 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 Paraesophageal hernia repair performed 09/12/16 2. Past knee surgeries 3. Laminectomy 4. Left shoulder replacement 5. Hysterectomy FAMILY HISTORY: stroke SOCIAL HISTORY: Non smoker , no alcohol Review Of Systems See above for pertinent positives & negatives. A total of 10 systems reviewed and were otherwise negative. Allergies Coded Allergies: Penicillins (Verified Allergy, Intermediate, SWELLS, 09/12/16) Sulfa Antibiotics (Verified Allergy, Intermediate, SWELLING, 09/12/16) OFELIA Inhibitors (Verified Allergy, Mild, UNKNOWN, 09/12/16) Metronidazole (Verified Allergy, Unknown, UNKNOWN, 09/12/16) Quinolones (Verified Allergy, Unknown, unknown, 09/12/16) Alendronate (Verified Adverse Reaction, Mild, COUGH, 09/12/16) Medications Reported Home Medications Medications Dose Route/Sig Max Daily Dose Days Date Category Protonix (Pantoprazole Sodium) 40 Mg Tab 40 Mg PO QAM 09/09/16 Reported Toprol-Xl (Metoprolol Succinate) 25 Mg Tabcr 25 Mg PO TID 09/09/16 Reported Aspirin Ec (Aspirin) 81 Mg Tab 81 Mg PO Q2D 09/08/16 Reported Tylenol (Acetaminophen) 325 Mg Tab 650 Mg PO Q6 PRN 08/20/16 Reported Vitamin D3 (Cholecalciferol) 1,000 Unit Tab 1 Tab PO QAM 90 08/20/16 Reported Osteo Bi-Flex Joint Shiel (Misc Natural Products) 1 Tab Tab 1 Tab PO QAM 08/20/16 Reported Lasix (Furosemide) 20 Mg Tab 20 Mg PO Q2D 08/20/16 Reported Vitamin C (Ascorbic Acid) 1,000 Mg Tab 1,000 Mg PO QAM 08/20/16 Reported Calcium 600+D3 600-800 mg-Unit (Calcium Carbonate-Cholecalcife) 1 Tab Tab 1 Tab PO BID 08/20/16 Reported Preservision Areds 2 (Multiple Vitamins W/ Minerals) 1 Cap Cap 1 Cap PO QAM 08/20/16 Reported Digoxin 0.125 Mg Tab 0.125 Mg PO QAM 08/20/16 Reported Colace (Docusate Sodium) 100 Mg Cap 1 Cap PO BID 30 08/20/16 Reported Prevagen (Apoaequorin) 10 Mg Cap 1 Tab PO UD 08/20/16 Reported Imdur Ext Rel (Isosorbide Mononitrate) 30 Mg Ertab 30 Mg PO QAM 08/20/16 Reported Cerovite Senior (Multiple Vitamins W/ Minerals) 1 Tab Tab 1 Tab PO QAM 10/30/15 Reported Cymbalta (Duloxetine HCl) 30 Mg Cap 30 Mg PO NOON 10/30/15 Reported Lyrica (Pregabalin) 75 Mg Cap 75 Mg PO BID 10/30/15 Reported Vitamin B-12 (Cyanocobalamin) 250 Mcg Tab 250 Mcg PO QAM 10/30/15 Reported Physical Exam Vital Signs (Last 8hrs): Last 8 Hrs Date Time Temp Pulse Resp B/P Pulse Ox O2 Delivery O2 Flow Rate FiO2 09/13/16 08:06 Room Air 09/13/16 04:00 95 Nasal Cannula 4.0 General Appearance: Alert and Oriented x3. NAD. Head: Normocephalic Atraumatic. Eyes: PERRLA, EOMI, conjunctiva and sclera clear Neck: Supple. No carotid bruits noted. No JVD. No HJD. Respiratory: Breath sounds clear to auscultation bilaterally. No w/r/r. Cardiovascular: irregular rhythm, 1/6 murmur Chest: stable incisions. Abdomen: Normal bowel sounds, soft nontender. no abdominal bruits. Extremities: No edema, no clubbing or cyanosis. distal pulses 2/4 bilaterally. Neuro: No focal deficits. Psychiatric: Normal affect. Data Last Resulted 09/13/16 09:30 Red Blood Count 3.79, Mean Corpuscular Volume 102.9, Mean Corpuscular Hemoglobin 34.0, Mean Corpuscular Hemoglobin Concent 33.1, Mean Platelet Volume 10.0, Neutrophils (%) (Auto) 70.7, Lymphocytes (%) (Auto) 19.3, Monocytes (%) ( Auto) 6.9, Eosinophils (%) (Auto) 2.7, Basophils (%) (Auto) 0.2, Neutrophils # ( Auto) 3.66, Lymphocytes # (Auto) 1.00, Monocytes # (Auto) 0.36, Eosinophils # ( Auto) 0.14, Basophils # (Auto) 0.01 Last Resulted 09/13/16 09:30 Last 24 Hours Test 09/13/16 09:30 White Blood Count 5.18 K/uL Red Blood Count 3.79 M/uL Hemoglobin 12.9 g/dL Hematocrit 39.0 % Mean Corpuscular Volume 102.9 fL Mean Corpuscular Hemoglobin 34.0 pg Mean Corpuscular Hemoglobin Concent 33.1 g/dl Platelet Count 161 K/uL Mean Platelet Volume 10.0 fL Neutrophils (%) (Auto) 70.7 % Lymphocytes (%) (Auto) 19.3 % Monocytes (%) (Auto) 6.9 % Eosinophils (%) (Auto) 2.7 % Basophils (%) (Auto) 0.2 % Neutrophils # (Auto) 3.66 K/uL Lymphocytes # (Auto) 1.00 K/uL Monocytes # (Auto) 0.36 K/uL Eosinophils # (Auto) 0.14 K/uL Basophils # (Auto) 0.01 K/uL RDW Standard Deviation 55.4 fL RDW Coefficient of Variation 14.7 % Immature Granulocyte % (Auto) 0.2 % Immature Granulocyte # (Auto) 0.01 K/uL Sodium Level 136 mmol/L Potassium Level 3.9 mmol/L Chloride Level 100 mmol/L Carbon Dioxide Level 28 mmol/L Anion Gap 8.0 mmol/L Blood Urea Nitrogen 20 mg/dl Creatinine 1.10 mg/dl Est Creatinine Clear Calc Drug Dose 28.8 ml/min Estimated GFR () 51.9 Estimated GFR (Non- 44.8 BUN/Creatinine Ratio 18.0 Random Glucose 89 mg/dl Calcium Level 8.4 mg/dl Magnesium Level 1.7 mg/dl Total Bilirubin 0.7 mg/dl Aspartate Amino Transf (AST/SGOT) 33 U/L Alanine Aminotransferase (ALT/SGPT) 26 U/L Alkaline Phosphatase 83 U/L Total Protein 6.8 gm/dl Albumin 3.0 gm/dl Globulin 3.8 gm/dl Albumin/Globulin Ratio 0.8 Digoxin Level 0.6 ng/ml Imaging: Chest x-ray with mild pneumomediastinum, no acute other changes. EKG: as per HPI Telemetry reviewed: as per HPI Assessment & Plan Impression: 89-year-old female 1. Atrial fibrillation controlled ventricular rate 2. Asymptomatic PVCs 3. Mild hypomagnesemia 4. History of mild aortic stenosis 5. Postoperative day one status post op paraesophageal hernia repair Plan: Recommend treatment with 1 g of IV magnesium prior to discharge. Then DC on prior cardiac medications including metoprolol and digoxin. She is to resume her prior home dose of aspirin every other day. Daniela Forman DO
[2016-09-13] MEDS ORDERED: DULOXETINE (CYMBALTA) 30 MG CAP PO SCH (12:00)
[2016-09-13 12:06] VITALS: BP 107/72; PULSE 76; TEMP 36.6; O2SAT 95
== END 2016-09-13 13:06 | disposition home or self-care (01) | DRG 327 ==
LOC: ENRESERVDT → ENRESERVTM → C.ACU 05:10 → C.2T 06:45
PROVIDERS: ADMIT Surgery; ATTEND Surgery
PROC: 0BQR4ZZ (ICD-10-PCS; principal; 2016-09-12 07:00)
PROC: 0DN64ZZ Release Stomach, Percutaneous Endoscopic Approach (ICD-10-PCS; principal; 2016-09-12 07:00)
PROC: 0BQS4ZZ (ICD-10-PCS; principal; 2016-09-12 07:00)
DX: K44.9 Diaphragmatic hernia without obstruction or gangrene (principal); I50.30 Unspecified diastolic (congestive) heart failure; I48.1 Persistent atrial fibrillation; K66.0 Peritoneal adhesions (postprocedural) (postinfection); I48.2 Chronic atrial fibrillation; I49.3 Ventricular premature depolarization; E83.42 Hypomagnesemia; I35.0 Nonrheumatic aortic (valve) stenosis; I10 Essential (primary) hypertension; F03.90 Unspecified dementia, unspecified severity, without behavioral disturbance, psychotic disturbance, mood disturbance, and anxiety; K21.9 Gastro-esophageal reflux disease without esophagitis; M19.90 Unspecified osteoarthritis, unspecified site; M81.0 Age-related osteoporosis without current pathological fracture; G62.9 Polyneuropathy, unspecified; Z96.612 Presence of left artificial shoulder joint; Z96.653 Presence of artificial knee joint, bilateral; Z79.82 Long term (current) use of aspirin; Z79.899 Other long term (current) drug therapy; Z79.891 Long term (current) use of opiate analgesic

== ENCOUNTER → 2016-10-25 | Outpatient (CLI) | payer OTHER ==
--- NOTE | 2016-10-25 08:54 | DIAGNOSTIC IMAGING REPORT ---
(BARIUM SWALLOW) ESOPHAGUS CLINICAL HISTORY: Repair of paraesophageal hernia. COMPARISON STUDY: Upper GI series August 21, 2016. FLUOROSCOPY TIME: 1.7 minutes. FINDINGS: 26 fluoroscopic images were obtained. These images demonstrate expected findings following repair of a paraesophageal hernia. No contrast extravasation is identified. There is moderate esophageal dysmotility. 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 The patient was unable to ingest the barium tablet. No esophageal stricture or mass was identified. IMPRESSION: 1. Expected findings following repair of paraesophageal hernia. 2. Moderate esophageal dysmotility. Electronically signed by: Darryl Gonzalez M.D. 10/25/2016 8:53 AM Dictated Date/Time: 10/25/2016 8:50 AM
== END | disposition home or self-care (01) ==
LOC: C.RAD 08:09
PROVIDERS: ATTEND Surgery
DX: K44.9 Diaphragmatic hernia without obstruction or gangrene (principal); K22.4 Dyskinesia of esophagus

== ENCOUNTER 2017-09-09 09:52 | Emergency (ER) | payer OTHER ==
[~2017-09-09] VITALS: Ht 154.9 cm; Wt 64.7 kg
[2017-09-09] MEDS ORDERED: ASPIRIN 81 MG CHEW PO STA (10:05)
[2017-09-09 10:36] LABS: BASO % 0.4 %; BASO ABS # 0.02 K/uL (0-0.2); EOS % 2.9 %; EOS ABS # 0.14 K/uL (0-0.5); HEMATOCRIT 38.7 % (37-47); HEMOGLOBIN 13.3 g/dL (12.0-16.0); IG# 0.01 K/uL (0.00-0.02); LYMPH % 20.7 %; LYMPH ABS # 0.99 K/uL (1.2-3.4); MEAN CELL VOLUME 103.5 fL (80-100); MEAN CORPUSCULAR HEMOGLOBIN 35.6 pg (25-34); MEAN CORPUSCULAR HGB CONC 34.4 g/dl (32-36); MEAN PLATELET VOLUME 9.8 fL (7.4-10.4); MONO ABS # 0.48 K/uL (0.11-0.59); NEUT % 65.8 %; NEUT ABS # 3.15 K/uL (1.4-6.5); PLATELET COUNT 195 K/uL (130-400); RED CELL DISTRIBUTION WIDTH CV 13.7 % (11.5-14.5); RED CELL DISTRIBUTION WIDTH SD 51.8 fL (36.4-46.3); WHITE BLOOD COUNT 4.79 K/uL (4.8-10.8)
--- NOTE | 2017-09-09 10:41 | DIAGNOSTIC IMAGING REPORT ---
CHEST ONE VIEW PORTABLE HISTORY: 89 years-old Female CHEST PAIN acute atypical chest pain COMPARISON: Chest radiograph 09/12/2016 TECHNIQUE: Portable AP view of the chest FINDINGS: Cardiac silhouette is mildly enlarged, unchanged. Calcification of the mitral annulus redemonstrated. Calcification of the aortic valve. There is no pneumothorax, pleural effusion or overt pulmonary edema. No lobar airspace consolidation. Mild right hemidiaphragmatic elevation with minimal subsegmental bibasilar atelectasis. The bones appear demineralized. Severe degenerative changes about the right shoulder with chronic remodeling changes. Left shoulder arthroplasty. Degenerative changes noted throughout the spine. IMPRESSION: Cardiomegaly without overt pulmonary edema. The above report was generated using voice recognition software. It may contain grammatical, syntax or spelling errors. Electronically signed by: Adithya Whitehead M.D. 09/09/2017 10:39 AM Dictated Date/Time: 09/09/2017 10:37 AM
[2017-09-09 10:50] LABS: ALBUMIN 3.2 gm/dl (3.4-5.0); CALCIUM 9.4 mg/dl (8.5-10.1); CREATININE 0.96 mg/dl (0.60-1.20); POTASSIUM 4.3 mmol/L (3.5-5.1)
[2017-09-09 10:55] LABS: CKMB 1.2 ng/ml (0.5-3.6); TOTAL PROTEIN 7.4 gm/dl (6.4-8.2)
--- NOTE | 2017-09-09 11:20 | EMERGENCY ROOM VISIT NOTE ---
History Report prepared by Axel: Domingo Anderson Under the Supervision of: Dr. Albert Jordan M.D. First contact with patient: 09:58 Chief Complaint: CHEST PAIN Stated Complaint: CHEST PAIN History of Present Illness The patient is a 89 year old female who presents to the Emergency Room with complaints of waxing and waning chest pain beginning 13 hours ago. The patient describes her pain as "dull". Her pain began before going to bed last night. She took Nitroglycerin for her pain which improved her symptoms. The patient states that she woke up this morning with her pain present again. She took two doses of Nitroglycerin again this morning, which improved her pain again. She has a history of A-fib, but is not on any blood thinners. The patient has no known history of MO. She denies shortness of breath, pain radiation, fevers, nausea, black or bloody stool, leg swelling, or abdominal pain. Source of History: patient Onset: 13 hours ago Position: chest Quality: dull Timing: waxes/wanes Modifying Factors (Relieving): other (Nitroglycerin) Associated Symptoms: No fevers, No SOB, No nausea, No abdominal pain, No melena, No hematochezia Note: The patient denies leg swelling or pain radiation. Review of Systems See HPI for pertinent positives & negatives. A total of 10 systems reviewed and were otherwise negative. Past Medical & Surgical Medical Problems: (1) Biatrial enlargement (2) Chronic atrial fibrillation (3) Cystocele repair (4) Diastolic heart failure (5) Diverticulosis (6) Hiatal hernia (7) HTN (hypertension) (8) Hypertension (9) Neuropathic arthropathy (10) Osteoarthritis (11) Osteoporosis (12) Paraesophageal hernia (13) Pulmonary HTN Surgical Problems: (1) H/O knee surgery (2) History of laminectomy (3) History of left shoulder replacement (4) History of partial hysterectomy (5) History of shoulder surgery (6) History of total bilateral knee replacement (7) S/P repair of paraesophageal hernia Old medical records were reviewed. Nurse's notes were reviewed and I agree with. Family History Stroke Social History Smoking Status: Never Smoker Alcohol Use: none Drug Use: none Marital Status: Housing Status: lives with significant other Occupation Status: retired Current/Historical Medications Scheduled Apoaequorin (Prevagen), 2 TAB PO DAILY Ascorbic Acid (Vitamin C), 1,000 MG PO QAM Calcium Carbonate-Cholecalcife (Calcium 600+D3 600-800 mg-Unit), 1 TAB PO BID Digoxin (Digoxin), 0.125 MG PO QAM Isosorbide Mononitrate Ext Rel (Imdur Ext Rel), 30 MG PO QAM Metoprolol Succ (Toprol Xl) (Toprol-Xl), 25 MG PO TID Misc Natural Products (Osteo Bi-Flex Joint Shiel), 1 TAB PO QAM Multiple Vitamins W/ Minerals (Cerovite Senior), 1 TAB PO QAM Multiple Vitamins W/ Minerals (Preservision Areds 2), 1 CAP PO QAM Pantoprazole (Protonix), 40 MG PO QAM Scheduled PRN Acetaminophen (Tylenol), 650 MG PO Q6 PRN for Pain Nitroglycerin (Nitrostat), 0.4 MG UT PRN PRN for chest pain Allergies Coded Allergies: Penicillins (Verified Allergy, Intermediate, SWELLS, 09/09/17) Sulfa Antibiotics (Verified Allergy, Intermediate, SWELLING, 09/09/17) OFELIA Inhibitors (Verified Allergy, Mild, UNKNOWN, 09/09/17) Metronidazole (Verified Allergy, Unknown, UNKNOWN, 09/09/17) Quinolones (Verified Allergy, Unknown, unknown, 09/09/17) Alendronate (Verified Adverse Reaction, Mild, COUGH, 09/09/17) Physical Exam Vital Signs Date Time Temp Pulse Resp B/P (MAP) Pulse Ox O2 Delivery O2 Flow Rate FiO2 09/09/17 11:40 78 20 146/77 94 Room Air 09/09/17 10:27 78 18 110/74 95 Room Air 09/09/17 10:25 95 Room Air 09/09/17 10:04 84 09/09/17 10:02 36.6 90 20 106/83 96 Room Air Physical Exam General: Non-ill appearing older female in no acute distress. HEENT: Normal cephalic atraumatic. Pupils are equal round and reactive to light. Extraocular movements are intact. Oropharynx is pink with moist mucous membranes. No swelling of the mouth lips or tongue. Neck: Supple with a midline trachea. No meningeal signs or stiffness, no JVD or bruits. No Stridor. Chest: Clear to auscultation bilaterally. No wheezes or rhonchi. No increased work of breathing. Heart: irregularly irregular rhythm, non-tachycardic. Abdomen: Soft nontender, nondistended without rebound guarding or rigidity. Extremities: No cyanosis clubbing or edema. No calf tenderness or assymetry Spine/Back. Non tender to palpation. No CVA tenderness Skin: Good turgor without rashes. Neurologic exam: Cranial nerves two through 12 are intact. Motor and sensation are intact and symmetrical throughout. Medical Decision & Procedures ER Provider Diagnostic Interpretation: Radiology results as stated below per my review and radiologist interpretation: CHEST ONE VIEW PORTABLE FINDINGS: Cardiac silhouette is mildly enlarged, unchanged. Calcification of the mitral annulus redemonstrated. Calcification of the aortic valve. There is no pneumothorax, pleural effusion or overt pulmonary edema. No lobar airspace consolidation. Mild right hemidiaphragmatic elevation with minimal subsegmental bibasilar atelectasis. The bones appear demineralized. Severe degenerative changes about the right shoulder with chronic remodeling changes. Left shoulder arthroplasty. Degenerative changes noted throughout the spine. IMPRESSION: Cardiomegaly without overt pulmonary edema. The above report was generated using voice recognition software. It may contain grammatical, syntax or spelling errors. Electronically signed by: Adithya Whitehead M.D. 09/09/2017 10:39 AM Laboratory Results 09/09/17 10:22 Red Blood Count 3.74, Mean Corpuscular Volume 103.5, Mean Corpuscular Hemoglobin 35.6, Mean Corpuscular Hemoglobin Concent 34.4, Mean Platelet Volume 9.8, Neutrophils (%) (Auto) 65.8, Lymphocytes (%) (Auto) 20.7, Monocytes (%) ( Auto) 10.0, Eosinophils (%) (Auto) 2.9, Basophils (%) (Auto) 0.4, Neutrophils # (Auto) 3.15, Lymphocytes # (Auto) 0.99, Monocytes # (Auto) 0.48, Eosinophils # ( Auto) 0.14, Basophils # (Auto) 0.02 09/09/17 10:22 Test 09/09/17 10:22 09/09/17 10:30 White Blood Count 4.79 K/uL (4.8-10.8) Red Blood Count 3.74 M/uL (4.2-5.4) Hemoglobin 13.3 g/dL (12.0-16.0) Hematocrit 38.7 % (37-47) Mean Corpuscular Volume 103.5 fL (80-100) Mean Corpuscular Hemoglobin 35.6 pg (25-34) Mean Corpuscular Hemoglobin Concent 34.4 g/dl (32-36) Platelet Count 195 K/uL (130-400) Mean Platelet Volume 9.8 fL (7.4-10.4) Neutrophils (%) (Auto) 65.8 % Lymphocytes (%) (Auto) 20.7 % Monocytes (%) (Auto) 10.0 % Eosinophils (%) (Auto) 2.9 % Basophils (%) (Auto) 0.4 % Neutrophils # (Auto) 3.15 K/uL (1.4-6.5) Lymphocytes # (Auto) 0.99 K/uL (1.2-3.4) Monocytes # (Auto) 0.48 K/uL (0.11-0.59) Eosinophils # (Auto) 0.14 K/uL (0-0.5) Basophils # (Auto) 0.02 K/uL (0-0.2) RDW Standard Deviation 51.8 fL (36.4-46.3) RDW Coefficient of Variation 13.7 % (11.5-14.5) Immature Granulocyte % (Auto) 0.2 % Immature Granulocyte # (Auto) 0.01 K/uL (0.00-0.02) Prothrombin Time 10.8 SECONDS (9.0-12.0) Prothromb Time International Ratio 1.0 (0.9-1.1) Activated Partial Thromboplast Time 24.0 SECONDS (21.0-31.0) Partial Thromboplastin Ratio 0.9 Anion Gap 8.0 mmol/L (3-11) Est Creatinine Clear Calc Drug Dose 34.2 ml/min Estimated GFR () 60.8 Estimated GFR (Non- 52.4 BUN/Creatinine Ratio 20.2 (10-20) Calcium Level 9.4 mg/dl (8.5-10.1) Total Bilirubin 0.6 mg/dl (0.2-1) Direct Bilirubin 0.2 mg/dl (0-0.2) Aspartate Amino Transf (AST/SGOT) 32 U/L (15-37) Alanine Aminotransferase (ALT/SGPT) 27 U/L (12-78) Alkaline Phosphatase 105 U/L (45-117) Total Creatine Kinase 75 U/L (26-192) Creatine Kinase MB 1.2 ng/ml (0.5-3.6) Creatine Kinase MB Ratio 1.6 (0-3.0) Total Protein 7.4 gm/dl (6.4-8.2) Albumin 3.2 gm/dl (3.4-5.0) Lipase 77 U/L (73-393) Bedside Troponin I < 0.030 ng/ml (0-0.045) Laboratory studies as stated above per my review. Medications Administered Medications (Trade) Dose Ordered Sig/Cynthia Route Start Time Stop Time Status Last Admin Dose Admin Aspirin (Aspirin Chew) 324 mg NOW STAT PO 09/09/17 10:05 09/09/17 10:07 DC 09/09/17 10:27 324 MG ECG Per My Interpretation Indication: chest pain Rate (beats per minute): 102 Rhythm: atrial fibrillation Findings: nonspecific-ST abn, other (Non-specific T wave abnormality. ) Comparison ECG Date: September 06, 2016 Change: no significant change ED Course 0959: Past medical records reviewed. The patient was evaluated in room A9B, and a complete history and physical examination were performed. 1005: Ordered Aspirin Chew 324 mg PO. 1115: Upon reevaluation, the patient is resting comfortably. She is asymptomatic. I discussed the results and treatment plan with the patient. She verbalized agreement of the treatment plan. The patient will be evaluated for further management. Medical Decision Differentials include, but are not limited to; ACS, arrhythmia, CHF, GERD and electrolyte or metabolic abnormality. This patient comes in as described above. He was placed in room a 9. She had an episode of chest pain that evening and also today it was relieved by nitro she took a total of 3 nitroglycerin. She has a history of chronic A. fib. On the monitor, she is in A. fib with a rate controlled rate. She is asymptomatic at present and has no chest pain or shortness of breath. She was given aspirin 324 mg chewable. Chest x-ray, EKG, and multiple blood testing was obtained. She has nothing to suggest that she has had an acute STEMI. Her cardiac biomarkers are not elevated. She has no significant electrolyte or metabolic abnormalities. Given her age and her symptoms, I do think she needs to be admitted/observed for further treatment and evaluation and cardiac evaluation. Have consulted to [facility] to see her in the ER. Medication Reconcilliation Current Medication List: was personally reviewed by me Blood Pressure Screening Patient's blood pressure: Normal blood pressure Blood pressure disposition: Did not require urgent referral Consults Time Called: [phone] Consulting Phys[facility] Return[facility] Call: [phone] Discussed the patient's case. The patient will be evaluated for further management. Impression Primary Impression: Precordial chest pain Additional Impression: Chronic atrial fibrillation Scribe Attestation The scribe's documentation has been prepared under my direction and personally reviewed by me in its entirety. I confirm that the note above accurately reflects all work, treatment, procedures, and medical decision making performed by me. Departure Information Dispostion Being Evaluated By Hospitalist Referrals Brittni Echeverria D.O. (PCP) Patient Instructions My [facility] Problem Qualifiers
[2017-09-09] MEDS ORDERED: ACETAMINOPHEN 325 MG TAB PO PRN (12:00)
[2017-09-09] MEDS ORDERED: ONDANSETRON INJ 2 MG/ML 2 ML VIAL IV PRN (12:00)
[2017-09-09] MEDS ORDERED: NITROGLYCERIN 0.4 MG SL PER TAB CHARGE SL PRN (12:00)
[2017-09-09] MEDS ORDERED: NTRGSL/4 UT (12:15)
--- NOTE | 2017-09-09 13:05 | History and Physical ---
History & Physical Date & Time of Service: Sep 09, 2017 ~ 11:30 Chief Complaint: Chest Pain Primary Care Physician: Brittni Echeverria D.O. History of Present Illness 89-year-old female who presents to the ER with a chief complaint of chest pain. She reports that around 9:00 last night she developed a left-sided chest discomfort that she describes as an ache. She denies any radiation of the pain into her shoulder, jaw, or arm. No associated shortness of breath, diaphoresis , or nausea. Patient took a nitroglycerin last evening however swallowed it with water. She reports chest pain resolved approximately 20 minutes after ever returned and was mostly persisted throughout the night. In the morning, she took 2 nitroglycerin sublingual, which resolved her pain. No lightheadedness, dizziness, or syncopal events. She denies orthopnea. She has mild chronic BL LE edema, right greater than left, which is unchanged from baseline. Which she has been feeling well recently. She is not very active however is been tolerating her activities of daily living at baseline. No fevers or chills. She denies abdominal pain, vomiting, diarrhea. No urinary symptoms. In the ED, initial troponin is negative and EKG does not show any acute ST changes. Patient was given a full dose aspirin. Of note, patient had been on a baby aspirin in the past however self stopped approximately 6 months ago due to epistaxis. Past Medical/Surgical History Medical Problems: (1) Biatrial enlargement Status: Chronic (2) Chronic atrial fibrillation Status: Chronic (3) Cystocele repair Status: Chronic (4) Diastolic heart failure Status: Chronic (5) Diverticulosis Status: Chronic (6) Hiatal hernia Status: Chronic (7) HTN (hypertension) Status: Chronic (8) Hypertension Status: Chronic (9) Neuropathic arthropathy Status: Chronic (10) Osteoarthritis Status: Chronic (11) Osteoporosis Status: Chronic (12) Paraesophageal hernia Status: Chronic (13) Pulmonary HTN Status: Chronic Surgical Problems: (1) H/O knee surgery Status: Resolved (2) History of laminectomy Status: Chronic (3) History of left shoulder replacement Status: Chronic (4) History of partial hysterectomy Status: Chronic (5) History of shoulder surgery Status: Resolved (6) History of total bilateral knee replacement Status: Chronic (7) S/P repair of paraesophageal hernia Status: Chronic Family History Noncontributory secondary to patient's advanced age Social History Smoking Status: Never Smoker Alcohol Use: none Marital Status: Housing status: lives with significant other Immunizations History of Influenza Vaccine: Yes Influenza Vaccine Date: Mar 27, 2017 History of Tetanus Vaccine?: Yes Tetanus Immunization Date: May 05, 2008 History of Pneumococcal: Yes Pneumococcal Date: Jan 25, 2016 Allergies Coded Allergies: Penicillins (Verified Allergy, Intermediate, SWELLS, 09/09/17) Sulfa Antibiotics (Verified Allergy, Intermediate, SWELLING, 09/09/17) OFELIA Inhibitors (Verified Allergy, Mild, UNKNOWN, 09/09/17) Metronidazole (Verified Allergy, Unknown, UNKNOWN, 09/09/17) Quinolones (Verified Allergy, Unknown, unknown, 09/09/17) Alendronate (Verified Adverse Reaction, Mild, COUGH, 09/09/17) Home Medications Scheduled Apoaequorin (Prevagen), 2 TAB PO DAILY Ascorbic Acid (Vitamin C), 1,000 MG PO QAM Calcium Carbonate-Cholecalcife (Calcium 600+D3 600-800 mg-Unit), 1 TAB PO BID Digoxin (Digoxin), 0.125 MG PO QAM Isosorbide Mononitrate Ext Rel (Imdur Ext Rel), 30 MG PO QAM Metoprolol Succ (Toprol Xl) (Toprol-Xl), 25 MG PO TID Misc Natural Products (Osteo Bi-Flex Joint Shiel), 1 TAB PO QAM Multiple Vitamins W/ Minerals (Cerovite Senior), 1 TAB PO QAM Multiple Vitamins W/ Minerals (Preservision Areds 2), 1 CAP PO QAM Pantoprazole (Protonix), 40 MG PO QAM Scheduled PRN Acetaminophen (Tylenol), 650 MG PO Q6 PRN for Pain Nitroglycerin (Nitrostat), 0.4 MG UT PRN PRN for chest pain Review of Systems ROS per HPI, all other systems reviewed and negative Physical Exam Vital Signs Date Time Temp Pulse Resp B/P (MAP) Pulse Ox O2 Delivery O2 Flow Rate FiO2 09/09/17 12:35 82 16 131/66 95 Room Air 09/09/17 12:16 73 09/09/17 11:40 78 20 146/77 94 Room Air 09/09/17 10:27 78 18 110/74 95 Room Air 09/09/17 10:25 95 Room Air 09/09/17 10:04 84 09/09/17 10:02 36.6 90 20 106/83 96 Room Air General Appearance: WD/WN, no apparent distress Head: normocephalic, atraumatic Eyes: normal inspection, EOMI, sclerae normal ENT: hearing grossly normal, + pertinent finding (Mucous membranes moist) Neck: supple, no JVD, trachea midline Respiratory/Chest: lungs clear, normal breath sounds, no respiratory distress Cardiovascular: normal peripheral pulses, + irregularly irregular (Rate controlled), + pertinent finding (+1 edema BLE, R > L) Abdomen/GI: normal bowel sounds, non tender, soft, no organomegaly Extremities/Musculoskelatal: normal inspection, no calf tenderness, normal capillary refill Neurologic/Psych: no motor/sensory deficits, alert, normal mood/affect, oriented x 3 Skin: normal color, warm/dry Diagnostics Laboratory Results Results Past 24 Hours Test 09/09/17 10:22 09/09/17 10:30 Range/Units White Blood Count 4.79 4.8-10.8 K/uL Red Blood Count 3.74 4.2-5.4 M/uL Hemoglobin 13.3 12.0-16.0 g/dL Hematocrit 38.7 37-47 % Mean Corpuscular Volume 103.5 80-100 fL Mean Corpuscular Hemoglobin 35.6 25-34 pg Mean Corpuscular Hemoglobin Concent 34.4 32-36 g/dl Platelet Count 195 130-400 K/uL Mean Platelet Volume 9.8 7.4-10.4 fL Neutrophils (%) (Auto) 65.8 % Lymphocytes (%) (Auto) 20.7 % Monocytes (%) (Auto) 10.0 % Eosinophils (%) (Auto) 2.9 % Basophils (%) (Auto) 0.4 % Neutrophils # (Auto) 3.15 1.4-6.5 K/uL Lymphocytes # (Auto) 0.99 1.2-3.4 K/uL Monocytes # (Auto) 0.48 0.11-0.59 K/uL Eosinophils # (Auto) 0.14 0-0.5 K/uL Basophils # (Auto) 0.02 0-0.2 K/uL RDW Standard Deviation 51.8 36.4-46.3 fL RDW Coefficient of Variation 13.7 11.5-14.5 % Immature Granulocyte % (Auto) 0.2 % Immature Granulocyte # (Auto) 0.01 0.00-0.02 K/uL Prothrombin Time 10.8 9.0-12.0 SECONDS Prothromb Time International Ratio 1.0 0.9-1.1 Activated Partial Thromboplast Time 24.0 21.0-31.0 SECONDS Partial Thromboplastin Ratio 0.9 Sodium Level 138 136-145 mmol/L Potassium Level 4.3 3.5-5.1 mmol/L Chloride Level 105 98-107 mmol/L Carbon Dioxide Level 25 21-32 mmol/L Anion Gap 8.0 3-11 mmol/L Blood Urea Nitrogen 19 7-18 mg/dl Creatinine 0.96 0.60-1.20 mg/dl Est Creatinine Clear Calc Drug Dose 34.2 ml/min Estimated GFR () 60.8 Estimated GFR (Non- 52.4 BUN/Creatinine Ratio 20.2 10-20 Random Glucose 88 70-99 mg/dl Calcium Level 9.4 8.5-10.1 mg/dl Total Bilirubin 0.6 0.2-1 mg/dl Direct Bilirubin 0.2 0-0.2 mg/dl Aspartate Amino Transf (AST/SGOT) 32 15-37 U/L Alanine Aminotransferase (ALT/SGPT) 27 12-78 U/L Alkaline Phosphatase 105 45-117 U/L Total Creatine Kinase 75 26-192 U/L Creatine Kinase MB 1.2 0.5-3.6 ng/ml Creatine Kinase MB Ratio 1.6 0-3.0 Total Protein 7.4 6.4-8.2 gm/dl Albumin 3.2 3.4-5.0 gm/dl Lipase 77 73-393 U/L Bedside Troponin I < 0.030 0-0.045 ng/ml Diagnostic Radiology CXR IMPRESSION: Cardiomegaly without overt pulmonary edema. Impression Assessment and Plan CHEST PAIN -Admit to telemetry -Patient presenting from home where she experienced left-sided chest pain last night, took nitroglycerin however swallowed it and had resolution of the pain after 20 minutes however pain returned and was persistent throughout the night, this morning patient took 2 sublingual nitroglycerin with resolution of her symptoms -History of paraesophageal hernia status post repair, however patient reports that discomfort is different from her hernia discomfort in the past -Initial troponin negative, EKG without acute ST changes -Will continue to cycle cardiac enzymes, check resting echo -Lexiscan stress test 2013 negative for ischemia -S/P full dose aspirin in the ED, will continue with 81 mg daily; patient had been taking a baby aspirin up until about 6 months ago when she self stopped due to nosebleeds -Continue beta-emery and nitrate -Consult cardiology CHRONIC ATRIAL FIBRILLATION -Rate controlled on beta-emery and digoxin -Not anticoagulated secondary to advanced age and fall risk HYPERTENSION -BP controlled, continue isosorbide and metoprolol CHRONIC DIASTOLIC CHF, VALVULAR DISEASE -Appears euvolemic, not on routine diuretics -Echo from 07/2016-EF 50-55%, mild aortic stenosis, mild mitral regurgitation, severe tricuspid regurgitation DVT PROPHYLAXIS -SQ Lovenox CODE STATUS -Patient is a full code as per discussion with her DISPOSITION -The patient will be placed as observation status for now until further work up is complete. ATTENDING ADDENDUM: Patient seen and examined, care coordinated with Misty DORADO 89-year-old female, presents with sudden onset of left-sided sharp chest pain started approximately 9 PM last night History of chronic A. fib, not on anticoagulation due to bleeding risk Symptom is not associated with shortness of breath, no radiation of the pain No prior history of NH, At present chest pain free Initial troponin negative, EKG without acute ST changes physical exam: General: Very pleasant elderly female no sign of distress HEENT: Sclerae nonicteric, PERRLA,/EOMI Heart: Irregular. Reproducible chest wall tenderness noted on the left fourth and fifth intercostal space Lungs: Clear to auscultate no wheezes rales Extremity: Trace bilateral lower extremity edema Neuro: Alert awake oriented 3, no focal neurological deficit ASSESSMENT AND PLAN: Chest pain/atypical for angina - will be monitored in telemetry -Appreciate input from cardiology -Resting echo does not show any wall motion abnormality EF 60-65% Severely dilated left atrium, aortic valve is more moderately calcified with borderline aortic stenosis, severe tricuspid regurgitation, [id number] mitral regurgitation -Serial cardiac markers will be checked -Nuclear scan/stress test tomorrow if patient remains chest pain-free, serial cardiac markers are negative Please refer to for the documentation by Misty DORADO For discussion of other chronic issues Faye Villanueva MD Resuscitation Status VTE Prophylaxis Will order VTE Prophylaxis: Yes
[2017-09-09 13:32] VITALS: BP 146/73; PULSE 82; TEMP 36.4; O2SAT 93
[2017-09-09 13:40] VITALS: Ht 154.9 cm; Wt 64.7 kg
[2017-09-09] MEDS: METOPROLOL SUCC 25MG EXT REL TAB PO SCH ×2 (14:16→21:10)
--- NOTE | 2017-09-09 14:20 | Cardiology Consultation ---
Cardiology Consultation Date of Consultation: Sep 09, 2017 Requesting Physician: Misty DORADO, reason for consultation: Chest pain Attending Filling Room Operator: Dr. Carlos Richard History of Present Illness Patient is a 89 year old female presents to the emergency department with chest discomfort. Carries a history of hiatal hernia, chronic atrial fib relation, and mild aortic stenosis. Patient underwent surgery for hiatal hernia proximally one year ago. Patient developed substernal and epigastric chest discomfort last evening. She described a severe dull ache. The pain appeared to wax and wane at different levels of intensity throughout the evening. Pain persisted until she came to the emergency department this morning. Pain at its worst was 8/10. Patient was treated with aspirin and sublingual nitroglycerin in the emergency department. Her pain subsequently resolved. Remains in chronic atrial fibrillation on telemetry with fair rate control at rest. She is not currently on anticoagulation. Typically follows with Dr. Barbour in our outpatient clinic. First set of cardiac enzymes are negative. ECG demonstrates atrial fibrillation with nonspecific ST-T wave changes. Currently the patient is pain-free. Her is at bedside. Patient denies any recent exertional chest pain or unusual shortness of breath. Her functional capacity is stable. Ambulation is limited by chronic arthritic issues. Denies orthopnea, PND, lower extremity edema, palpitations, lightheadedness, dizziness , syncope, or near syncope. Denies febrile illness or sick contacts. No frequency, urgency, or dysuria. Denies abdominal pain, nausea, vomiting, or diarrhea. Offers no other complaints at this time. Past Medical/Surgical History Problem List: Medical Problems: (1) Biatrial enlargement (2) Chronic atrial fibrillation (3) Cystocele repair (4) Diastolic heart failure (5) Diverticulosis (6) Hiatal hernia (7) HTN (hypertension) (8) Hypertension (9) Neuropathic arthropathy (10) Osteoarthritis (11) Osteoporosis (12) Paraesophageal hernia (13) Pulmonary HTN Surgical Problems: (1) H/O knee surgery (2) History of laminectomy (3) History of left shoulder replacement (4) History of partial hysterectomy (5) History of shoulder surgery (6) History of total bilateral knee replacement (7) S/P repair of paraesophageal hernia Family History Stroke Denies family history of premature CAD or sudden cardiac . Noncontributory given patient's advanced age. Social History Smoking Status: Never Smoker Alcohol Use: none Marital Status: Housing Status: lives with significant other Review Of Systems Pertinent positives per HPI, otherwise: General: The patient denies weight change, night sweats, fever, chills. Head: The patient denies headache and prior head trauma. Cardiovascular: The patient denies dyspnea on exertion, palpitations, PND, orthopnea, edema, spontaneous shortness of breath, syncope and near syncope. Pulmonary: The patient denies cough, wheeze, pleurisy, hemoptysis, sputum, and excessive snoring. Gastrointestinal: The patient denies nausea, vomiting, diarrhea, constipation, bloating, hematemesis, hematochezia, and abdominal pain. Skin: The patient denies diaphoresis and rash. Musculoskeletal: The patient denies joint pain, joint swelling, myalgia, back pain, neck pain and prior injuries. Neurological: The patient denies prior stroke and seizures Allergies Coded Allergies: Penicillins (Verified Allergy, Intermediate, SWELLS, 09/09/17) Sulfa Antibiotics (Verified Allergy, Intermediate, SWELLING, 09/09/17) OFELIA Inhibitors (Verified Allergy, Mild, UNKNOWN, 09/09/17) Metronidazole (Verified Allergy, Unknown, UNKNOWN, 09/09/17) Quinolones (Verified Allergy, Unknown, unknown, 09/09/17) Alendronate (Verified Adverse Reaction, Mild, COUGH, 09/09/17) Medications Reported Home Medications Medications Dose Route/Sig Max Daily Dose Days Date Category Nitrostat (Nitroglycerin) 0.4 Mg Tab 0.4 Mg UT PRN PRN 09/09/17 Reported Protonix (Pantoprazole Sodium) 40 Mg Tab 40 Mg PO QAM 09/09/16 Reported Toprol-Xl (Metoprolol Succinate) 25 Mg Tabcr 25 Mg PO TID 09/09/16 Reported Tylenol (Acetaminophen) 325 Mg Tab 650 Mg PO Q6 PRN 08/20/16 Reported Osteo Bi-Flex Joint Shiel (Misc Natural Products) 1 Tab Tab 1 Tab PO QAM 08/20/16 Reported Vitamin C (Ascorbic Acid) 1,000 Mg Tab 1,000 Mg PO QAM 08/20/16 Reported Calcium 600+D3 600-800 mg-Unit (Calcium Carbonate-Cholecalcife) 1 Tab Tab 1 Tab PO BID 08/20/16 Reported Preservision Areds 2 (Multiple Vitamins W/ Minerals) 1 Cap Cap 1 Cap PO QAM 08/20/16 Reported Digoxin 0.125 Mg Tab 0.125 Mg PO QAM 08/20/16 Reported Prevagen (Apoaequorin) 10 Mg Cap 2 Tab PO DAILY 08/20/16 Reported Imdur Ext Rel (Isosorbide Mononitrate) 30 Mg Ertab 30 Mg PO QAM 08/20/16 Reported Cerovite Senior (Multiple Vitamins W/ Minerals) 1 Tab Tab 1 Tab PO QAM 10/30/15 Reported Physical Exam Vital Signs (Last 8hrs): Last 8 Hrs Date Time Temp Pulse Resp B/P (MAP) Pulse Ox O2 Delivery O2 Flow Rate FiO2 09/09/17 13:40 Room Air 09/09/17 13:32 36.4 82 18 146/73 (97) 93 Room Air 09/09/17 12:35 82 16 131/66 95 Room Air 09/09/17 12:16 73 09/09/17 11:40 78 20 146/77 94 Room Air 09/09/17 10:27 78 18 110/74 95 Room Air 09/09/17 10:25 95 Room Air 09/09/17 10:04 84 09/09/17 10:02 36.6 90 20 106/83 96 Room Air General Appearance: Alert and Oriented x3. NAD. Head: Normocephalic Atraumatic. Eyes: PERRLA, EOMI, conjunctiva and sclera clear Neck: Supple. No carotid bruits noted. No JVD. No HJD. Respiratory: Breath sounds clear to auscultation bilaterally. No w/r/r. Cardiovascular: Irregular rhythm. S1 and S2 noted. 2/6 systolic ejection murmur heard best at the right second intercostal space no rubs, gallops. PMI non displace. Abdomen: Normal bowel sounds, soft nontender. no abdominal bruits. Extremities: No edema, no clubbing or cyanosis. distal pulses 2/4 bilaterally. Neuro: No focal deficits. Psychiatric: Normal affect. Data Last 24 Hours Test 09/09/17 10:22 09/09/17 10:30 White Blood Count 4.79 K/uL Red Blood Count 3.74 M/uL Hemoglobin 13.3 g/dL Hematocrit 38.7 % Mean Corpuscular Volume 103.5 fL Mean Corpuscular Hemoglobin 35.6 pg Mean Corpuscular Hemoglobin Concent 34.4 g/dl Platelet Count 195 K/uL Mean Platelet Volume 9.8 fL Neutrophils (%) (Auto) 65.8 % Lymphocytes (%) (Auto) 20.7 % Monocytes (%) (Auto) 10.0 % Eosinophils (%) (Auto) 2.9 % Basophils (%) (Auto) 0.4 % Neutrophils # (Auto) 3.15 K/uL Lymphocytes # (Auto) 0.99 K/uL Monocytes # (Auto) 0.48 K/uL Eosinophils # (Auto) 0.14 K/uL Basophils # (Auto) 0.02 K/uL RDW Standard Deviation 51.8 fL RDW Coefficient of Variation 13.7 % Immature Granulocyte % (Auto) 0.2 % Immature Granulocyte # (Auto) 0.01 K/uL Prothrombin Time 10.8 SECONDS Prothromb Time International Ratio 1.0 Activated Partial Thromboplast Time 24.0 SECONDS Partial Thromboplastin Ratio 0.9 Sodium Level 138 mmol/L Potassium Level 4.3 mmol/L Chloride Level 105 mmol/L Carbon Dioxide Level 25 mmol/L Anion Gap 8.0 mmol/L Blood Urea Nitrogen 19 mg/dl Creatinine 0.96 mg/dl Est Creatinine Clear Calc Drug Dose 34.2 ml/min Estimated GFR () 60.8 Estimated GFR (Non- 52.4 BUN/Creatinine Ratio 20.2 Random Glucose 88 mg/dl Calcium Level 9.4 mg/dl Total Bilirubin 0.6 mg/dl Direct Bilirubin 0.2 mg/dl Aspartate Amino Transf (AST/SGOT) 32 U/L Alanine Aminotransferase (ALT/SGPT) 27 U/L Alkaline Phosphatase 105 U/L Total Creatine Kinase 75 U/L Creatine Kinase MB 1.2 ng/ml Creatine Kinase MB Ratio 1.6 Total Protein 7.4 gm/dl Albumin 3.2 gm/dl Lipase 77 U/L Bedside Troponin I < 0.030 ng/ml Imaging: Chest x-ray: No infiltrate or CHF. EKG: Atrial fibrillation nonspecific ST-T wave abnormality Telemetry reviewed: Atrial fibrillation with intermittent rapid ventricular response associated with activity Assessment & Plan Final impression: 1. 89-year-old female admitted with atypical chest discomfort of 12 hour duration. Initial troponins are undetectable. Baseline ECG without ischemic changes. 2. Chronic atrial fibrillation with borderline rate control. Patient not chronically anticoagulation due to "high bleeding risk" noted in outpatient and inpatient records. 3. History of large hiatal hernia status post repair 2017. 4. Chart history of diastolic heart failure and hypertension - BP borderline controlled, she does not appear volume overloaded Plan/Recommendations: Cardiac enzymes will be repeated 3 sets. If enzymes are negative, consider Lexiscan nuclear stress testing for further risk stratification. A resting 2D transthoracic echocardiogram will be performed today. Current cardiovascular medications including Toprol-XL, digoxin, aspirin, and statin therapy will be continued as previously ordered. Further recommendations pending clinical course, and review of testing results. Thank you for allowing me to participate in the care of your patient. Carlos Richard DO, [facility]
[2017-09-09 15:02] VITALS: BP 106/69; PULSE 80; TEMP 36.3; O2SAT 93
[2017-09-09] MEDS ORDERED: IV FLUIDS COMPLETED PRN (15:15)
--- NOTE | 2017-09-09 17:16 | ECHOCARDIOGRAM REPORT ---
*NOTICE TO RECEIVING CONSTITUTION PARTY AGENCY This information is strictly Confidential and protected under [place] law. [place] law prohibits you from making any further disclosure of this information unless further disclosure is expressly permitted by the written consent of the person to whom it pertains or is authorized by law. A general authorization for the release of medical or other information is not sufficient for this purpose. Hospital accepts no responsibility if the information is made available to any other person, INCLUDING THE PATIENT. Interpretation Summary * Name: BONY SCRUGGS Study Date: 09/09/2017 03:03 PM BP: 106/69 mmHg * Patient Location: [facility] HR: 86 * : 1925 (M/d/yyyy) Gender: Female Height: 61 in * Age: 89 yrs Ethnicity: [place] Weight: 142 lb * Ordering Physician: Misty Hagan * Referring Physician: Self, Referred * Performed By: Norma Plasencia RDCS * * Reason For Study: CHEST PAIN * BSA: 1.6 m2 * The study was technically adequate. * Compared to prior study, there is no significant change. * -- Conclusions -- * The rhythm is atrial fibrillation. * Ejection Fraction = 60-65%. * There is mild concentric left ventricular hypertrophy. * The left atrium is severely dilated. * The right atrium is moderately dilated. * The aortic valve is moderately calcified with borderline mild aortic stenosis. * There is mild to moderate mitral regurgitation. * There is severe tricuspid regurgitation. * The estimated systolic pulmonary arterial pressure is 37 mmHg. Procedure Details * A complete two-dimensional transthoracic echocardiogram was performed (2D, M-mode, Doppler and color flow Doppler). Left Ventricle * The left ventricle is normal in size. * The rhythm is atrial fibrillation. * There is mild concentric left ventricular hypertrophy. * Left ventricular systolic function is normal. * Ejection Fraction = 60-65%. * The left ventricular wall motion is normal. Right Ventricle * The right ventricle is normal in size and function. Atria * The left atrium is severely dilated. * The right atrium is moderately dilated. * The interatrial septum is intact with no evidence for an atrial septal defect. Mitral Valve * There is severe mitral annular calcification. * The mitral valve leaflets appear thickened, but open well. * No significant mitral valve stenosis. * There is mild to moderate mitral regurgitation. Tricuspid Valve * The tricuspid valve anatomy is normal. * There is no tricuspid stenosis. * There is severe tricuspid regurgitation. * The estimated systolic pulmonary arterial pressure is 37 mmHg. Aortic Valve * The aortic valve is trileaflet. * The aortic valve is moderately calcified with borderline mild aortic stenosis. * No aortic regurgitation is present. Pulmonic Valve * The pulmonary valve is inadequately visualized, but the Doppler data is adequate for interpretation. * There is no pulmonic valvular stenosis. * Mild pulmonic valvular regurgitation. Great Vessels * The aortic root is normal size. * The pulmonary is not well visualized. Pericardium/Pleural * There is no pericardial effusion. Great Vessels * Normal inferior vena cava diameter and respiratory variation suggests normal central venous pressure. Left Ventricular Diastolic Function * Pulse wave TDI of the anterior and posterior mitral annulas demonstrates abnormal LV relaxation MMode 2D Measurements and Calculations IVSd 1.3 cm IVSs 1.9 cm LVIDd 4.3 cm LVIDs 3.2 cm LVPWd 1.3 cm LVPWs 1.1 cm IVS/LVPW 1.0 FS 23.8 % EDV(Teich) 81.1 ml ESV(Teich) 42.3 ml EF(Teich) 47.9 % EDV(cubed) 77.2 ml ESV(cubed) 34.1 ml EF(cubed) 55.8 % % IVS thick 41.4 % % LVPW thick -12.21 % LV mass(C)d 202.5 grams LV mass(C)dI 124.0 grams/m\S\2 LV mass(C)s 172.1 grams LV mass(C)sI 105.4 grams/m\S\2 SV(Teich) 38.8 ml SI(Teich) 23.8 ml/m\S\2 SV(cubed) 43.1 ml SI(cubed) 26.4 ml/m\S\2 Ao root diam 2.7 cm Ao root area 5.7 cm\S\2 ACS 1.3 cm LA dimension 6.2 cm LA/Ao 2.3 LVOT diam 2.0 cm LVOT area 3.0 cm\S\2 LVAd ap4 22.1 cm\S\2 LVLd ap4 6.8 cm EDV(MOD-sp4) 57.1 ml EDV(sp4-el) 60.5 ml LVAs ap4 14.9 cm\S\2 LVLs ap4 6.4 cm ESV(MOD-sp4) 30.0 ml ESV(sp4-el) 29.4 ml EF(MOD-sp4) 47.3 % EF(sp4-el) 51.3 % LVAd ap2 21.5 cm\S\2 LVLd ap2 6.9 cm EDV(MOD-sp2) 53.8 ml EDV(sp2-el) 56.7 ml LVAs ap2 14.8 cm\S\2 LVLs ap2 6.3 cm ESV(MOD-sp2) 28.1 ml ESV(sp2-el) 29.4 ml EF(MOD-sp2) 47.8 % EF(sp2-el) 48.2 % LVLd %diff 0.88 % EDV(MOD-bp) 56.3 ml LVLs %diff -1.28 % ESV(MOD-bp) 28.9 ml EF(MOD-bp) 48.7 % SV(MOD-sp4) 27.0 ml SI(MOD-sp4) 16.5 ml/m\S\2 SV(MOD-sp2) 25.7 ml SI(MOD-sp2) 15.7 ml/m\S\2 SV(MOD-bp) 27.4 ml SI(MOD-bp) 16.8 ml/m\S\2 SV(sp4-el) 31.0 ml SI(sp4-el) 19.0 ml/m\S\2 SV(sp2-el) 27.3 ml SI(sp2-el) 16.7 ml/m\S\2 Doppler Measurements and Calculations MV E max azael 131.0 cm/sec MV P1/2t max azael 159.5 cm/sec MV P1/2t 56.1 msec MVA(P1/2t) 3.9 cm\S\2 MV dec slope 832.6 cm/sec\S\2 MV dec time 0.33 sec Ao V2 max 207.6 cm/sec Ao max PG 17.2 mmHg Ao max PG (full) 12.6 mmHg Ao V2 mean 151.6 cm/sec Ao mean PG 10.3 mmHg Ao mean PG (full) 7.8 mmHg Ao V2 VTI 41.4 cm CR(I,A) 1.6 cm\S\2 CR(I,D) 1.6 cm\S\2 CR(V,A) 1.6 cm\S\2 CR(V,D) 1.6 cm\S\2 AI max azael 353.3 cm/sec AI max PG 49.9 mmHg AI dec slope 107.5 cm/sec\S\2 AI P1/2t 962.7 msec LV V1 max PG 4.6 mmHg LV V1 mean PG 2.5 mmHg LV V1 max 107.2 cm/sec LV V1 mean 73.2 cm/sec LV V1 VTI 21.4 cm MR max azael 511.8 cm/sec MR max PG 104.8 mmHg SV(Ao) 237.7 ml SI(Ao) 145.5 ml/m\S\2 SV(LVOT) 64.7 ml SI(LVOT) 39.6 ml/m\S\2 PA V2 max 55.5 cm/sec PA max PG 1.2 mmHg PI max azael 156.3 cm/sec PI max PG 9.8 mmHg PI dec slope 95.0 cm/sec\S\2 PI P1/2t 481.9 msec TR max azael 270.4 cm/sec
[2017-09-09 19:28] VITALS: BP 123/67; PULSE 81; TEMP 36.8; O2SAT 90
[2017-09-09] MEDS ORDERED: ENOXAPARIN 40 MG/0.4 ML SYR SC SCH (21:00)
[2017-09-09 23:20] VITALS: BP 154/71; PULSE 87; TEMP 37; O2SAT 96
[2017-09-10 03:40] VITALS: BP 128/76; PULSE 69; TEMP 36.9; O2SAT 95
[2017-09-10 05:50] LABS: HEMATOCRIT 40.6 % (37-47); HEMOGLOBIN 13.8 g/dL (12.0-16.0); MEAN PLATELET VOLUME 9.9 fL (7.4-10.4); PLATELET COUNT 210 K/uL (130-400); RED CELL DISTRIBUTION WIDTH CV 13.9 % (11.5-14.5); RED CELL DISTRIBUTION WIDTH SD 52.3 fL (36.4-46.3); WHITE BLOOD COUNT 4.83 K/uL (4.8-10.8)
[2017-09-10 06:20] LABS: CALCIUM 9.2 mg/dl (8.5-10.1); CREATININE 0.97 mg/dl (0.60-1.20); POTASSIUM 4.3 mmol/L (3.5-5.1)
[2017-09-10 07:00] VITALS: BP 171/91; PULSE 101; TEMP 36.6; O2SAT 95
[2017-09-10] MEDS: METOPROLOL SUCC 25MG EXT REL TAB PO SCH (07:43)
[2017-09-10 08:00] VITALS: O2SAT 95
[2017-09-10] MEDS ORDERED: PANTOprazole SOD 40 MG TAB PO SCH (09:00)
[2017-09-10] MEDS ORDERED: CEROVITE ADV FORMULA TAB PO SCH (09:00)
[2017-09-10] MEDS ORDERED: ASPIRIN 81 MG ECTAB PO SCH (09:00)
[2017-09-10] MEDS ORDERED: ISOSORBIDE MONONITRATE 30 MG TABCR PO SCH (09:00)
--- NOTE | 2017-09-10 10:18 | Cardiology Follow-Up ---
Subjective General Date of Service: Sep 10, 2017. Pt evaluation today including: conversation w/ patient, conversation w/ family , physical exam, chart review, lab review, review of studies, review of inpatient medication list History of Present Illness The patient is a 89 year old female seen in follow-up. Poor short-term memory. present at bedside. Patient denies recurrent chest pain or unusual shortness of breath. Resting 2D transthoracic echo demonstrates preserved LV systolic function, normal wall motion. Cardiac enzymes are undetectable. Offers no complaints at this time. Allergies Coded Allergies: Penicillins (Verified Allergy, Intermediate, SWELLS, 09/09/17) Sulfa Antibiotics (Verified Allergy, Intermediate, SWELLING, 09/09/17) OFELIA Inhibitors (Verified Allergy, Mild, UNKNOWN, 09/09/17) Metronidazole (Verified Allergy, Unknown, UNKNOWN, 09/09/17) Quinolones (Verified Allergy, Unknown, unknown, 09/09/17) Alendronate (Verified Adverse Reaction, Mild, COUGH, 09/09/17) Social History Smoking Status: Never Smoker Hx Tobacco Use In Past Year?: No Hx Alcohol Use - Type And Amou: No Hx Substance Use - Type And Am: No Problem List Medical Problems: (1) Atrial fibrillation with rapid ventricular response Status: Acute (2) Atrial fibrillation with RVR Status: Acute (3) Chronic atrial fibrillation Status: Chronic (4) GI bleeding Status: Acute (5) Hypertension Status: Chronic (6) New onset a-fib Status: Acute (7) Precordial chest pain Status: Acute (8) Precordial chest pain Status: Acute Review of Systems Respiratory: No cough, No sputum, No wheezing, No shortness of breath, No dyspnea at rest, No hemoptysis Cardiac: No chest pain, No orthopnea, No PND, No edema, No claudication, No palpitations Physical Exam Vital Signs Last Vital Signs Documentation Date Time Temp Pulse Resp B/P (MAP) Pulse Ox O2 Delivery O2 Flow Rate FiO2 09/10/17 08:00 95 Room Air 09/10/17 07:00 36.6 101 16 171/91 (117) Physical Exam Constitutional: General Apperance: heathly-appearing Level of Distress: NAD Ambulation: ambulating normally Head: atraumatic ENMT: normal ENT inspection Neck: supple, trachea midline Lungs: Auscultation: breath sounds normal, no wheezing, no rales/crackles, no rhonchi Cardiovascular: Heart Auscultation: RRR, normal S1, normal S2, II/ NADINE Peripheral Pulses: Radial Pulse: normal on the right Femoral Pulse: normal on the right Musculoskeletal: normal, normal strength (5/5 throughout) Extremities: no cyanosis, no edema, no clubbing, no ulcers Neurologic: Gait & Station: pertinent finding (No focal motor deficit) Cranial Nerves: grossly intact Assessment and Plan Assessment and Plan Final impression: 1. 89-year-old female presents with atypical chest discomfort of 12 hour duration. Likely noncardiac given negative cardiac enzymes, nonischemic ECG, and normal left ventricular systolic function/wall motion on echo. 2. Chronic atrial fibrillation with borderline rate control. Patient not chronically anticoagulation due to "high bleeding risk" noted in outpatient and inpatient records. 3. Mild aortic stenosis 4. History of large hiatal hernia status post repair 2016. 5. Chart history of diastolic heart failure and hypertension - BP borderline controlled and labile, she does not appear volume overloaded Plan/Recommendations: Vital long discussion with the patient and her regarding her atypical chest discomfort. I suspect her pain may be related to hiatal hernia given negative cardiac workup thus far. Recommend continue current cardiovascular medications as previously ordered. Patient may be discharged home. I have arranged for close outpatient follow-up in 1 week at my office. Appropriate use of sublingual nitroglycerin reviewed with patient. She is agreeable to the current plan, however, instructed to return to the hospital with any recurrent significant pain prior to hospital follow-up appointment. All questions were answered to her satisfaction. Cardiology will sign off. Please call with questions. Laboratory Results Last 24 Hours Test 09/09/17 10:22 09/09/17 10:30 09/09/17 16:16 09/09/17 21:43 White Blood Count 4.79 K/uL Red Blood Count 3.74 M/uL Hemoglobin 13.3 g/dL Hematocrit 38.7 % Mean Corpuscular Volume 103.5 fL Mean Corpuscular Hemoglobin 35.6 pg Mean Corpuscular Hemoglobin Concent 34.4 g/dl Platelet Count 195 K/uL Mean Platelet Volume 9.8 fL Neutrophils (%) (Auto) 65.8 % Lymphocytes (%) (Auto) 20.7 % Monocytes (%) (Auto) 10.0 % Eosinophils (%) (Auto) 2.9 % Basophils (%) (Auto) 0.4 % Neutrophils # (Auto) 3.15 K/uL Lymphocytes # (Auto) 0.99 K/uL Monocytes # (Auto) 0.48 K/uL Eosinophils # (Auto) 0.14 K/uL Basophils # (Auto) 0.02 K/uL RDW Standard Deviation 51.8 fL RDW Coefficient of Variation 13.7 % Immature Granulocyte % (Auto) 0.2 % Immature Granulocyte # (Auto) 0.01 K/uL Prothrombin Time 10.8 SECONDS Prothromb Time International Ratio 1.0 Activated Partial Thromboplast Time 24.0 SECONDS Partial Thromboplastin Ratio 0.9 Sodium Level 138 mmol/L Potassium Level 4.3 mmol/L Chloride Level 105 mmol/L Carbon Dioxide Level 25 mmol/L Anion Gap 8.0 mmol/L Blood Urea Nitrogen 19 mg/dl Creatinine 0.96 mg/dl Est Creatinine Clear Calc Drug Dose 34.2 ml/min Estimated GFR () 60.8 Estimated GFR (Non- 52.4 BUN/Creatinine Ratio 20.2 Random Glucose 88 mg/dl Calcium Level 9.4 mg/dl Total Bilirubin 0.6 mg/dl Direct Bilirubin 0.2 mg/dl Aspartate Amino Transf (AST/SGOT) 32 U/L Alanine Aminotransferase (ALT/SGPT) 27 U/L Alkaline Phosphatase 105 U/L Total Creatine Kinase 75 U/L Creatine Kinase MB 1.2 ng/ml Creatine Kinase MB Ratio 1.6 Total Protein 7.4 gm/dl Albumin 3.2 gm/dl Lipase 77 U/L Bedside Troponin I < 0.030 ng/ml Troponin I < 0.015 ng/ml < 0.015 ng/ml Test 09/10/17 05:31 White Blood Count 4.83 K/uL Red Blood Count 3.94 M/uL Hemoglobin 13.8 g/dL Hematocrit 40.6 % Mean Corpuscular Volume 103.0 fL Mean Corpuscular Hemoglobin 35.0 pg Mean Corpuscular Hemoglobin Concent 34.0 g/dl RDW Standard Deviation 52.3 fL RDW Coefficient of Variation 13.9 % Platelet Count 210 K/uL Mean Platelet Volume 9.9 fL Sodium Level 138 mmol/L Potassium Level 4.3 mmol/L Chloride Level 104 mmol/L Carbon Dioxide Level 26 mmol/L Anion Gap 8.0 mmol/L Blood Urea Nitrogen 20 mg/dl Creatinine 0.97 mg/dl Est Creatinine Clear Calc Drug Dose 33.9 ml/min Estimated GFR () 60.0 Estimated GFR (Non- 51.8 BUN/Creatinine Ratio 21.0 Random Glucose 99 mg/dl Calcium Level 9.2 mg/dl
[2017-09-10 11:18] VITALS: BP 91/52; PULSE 89; TEMP 36.3; O2SAT 92
--- NOTE | 2017-09-10 13:14 | Discharge Instructions ---
Discharge Instructions Date of Service Sep 10, 2017. Admission Reason for Admission: Chest Pain Discharge Discharge Diagnosis / Problem: Atypical chest pain Discharge Goals Goal(s): Prevent Disease Progression Activity Recommendations Activity Limitations: per Instructions/Follow-up section . Instructions / Follow-Up Instructions / Follow-Up Please continue all medications as instructed on discharge list. You have a follow-up appointment with Dr. Echeverria on Fri, 09/15 @ 1:45p for follow- up of this hospitalization. You have a follow-up with Dr. Barbour at the [facility]iology clinic in [facility] scheduled for 09/17 @ 10:30m. It was a pleasure taking care of you! Call if you have any questions or problems. You can reach a [facility] hospitalist on duty at [facility] 24 hours a day by calling [phone]. Take care of yourself. Stephanie Beard DO [facility] Hospitalist Current Hospital Diet Patient's current hospital diet: AHA Diet (Heart Healthy), Low Sodium Diet (2gm Na) Discharge Diet Recommended Diet: AHA Diet (Heart Healthy) Procedures Procedures Performed: TTE Pending Studies Studies pending at discharge: no Medical Emergencies . Who to Call and When: Medical Emergencies: If at any time you feel your situation is an emergency, please call 911 immediately. . Non-Emergent Contact Non-Emergency issues call your: Primary Care Provider . . "Provider Documentation" section prepared by Stephanie Beard. .
[2017-09-10 13:38] VITALS: BP 91/52; PULSE 89; TEMP 36.3; O2SAT 92
[2017-09-10] MEDS ORDERED: DIGOXIN 0.125 MG TAB PO SCH (16:00)
--- NOTE | 2017-09-10 18:00 | Discharge Summary ---
Discharge Summary Date of Service Sep 10, 2017. Discharge Summary Admission Date: Sep 09, 2017 at 11:58 Discharge Date: Sep 10, 2017 Discharge Disposition: Home Principal Diagnosis: Atypical chest pain chronic atrial fibrillation h/o large hiatal hernia status post repair 2017. Chronic diastolic heart failure HTN Procedures: 2D TTE: -- Conclusions -- * The rhythm is atrial fibrillation. * Ejection Fraction = 60-65%. * There is mild concentric left ventricular hypertrophy. * The left atrium is severely dilated. * The right atrium is moderately dilated. * The aortic valve is moderately calcified with borderline mild aortic stenosis. * There is mild to moderate mitral regurgitation. * There is severe tricuspid regurgitation. * The estimated systolic pulmonary arterial pressure is 37 mmHg. Vaccinations: None. Consultations: Jaquan Richard MD-Cardiology Pending Studies/Follow-Up: see instructions below Medication Reconciliation Continued Medications: Acetaminophen (Tylenol) 325 Mg Tab 650 MG PO Q6 PRN for Pain, TAB Apoaequorin (Prevagen) 10 Mg Cap 2 TAB PO DAILY Ascorbic Acid (Vitamin C) 1,000 Mg Tab 1000 MG PO QAM Calcium Carbonate-Cholecalcife (Calcium 600+D3 600-800 mg-Unit) 1 Tab Tab 1 TAB PO BID Digoxin (Digoxin) 0.125 Mg Tab 0.125 MG PO QAM Isosorbide Mononitrate Ext Rel (Imdur Ext Rel) 30 Mg Ertab 30 MG PO QAM, TAB Metoprolol Succ (Toprol Xl) (Toprol-Xl) 25 Mg Tabcr 25 MG PO TID, #30 TAB Misc Natural Products (Osteo Bi-Flex Joint Shiel) 1 Tab Tab 1 TAB PO QAM Multiple Vitamins W/ Minerals (Cerovite Senior) 1 Tab Tab 1 TAB PO QAM Multiple Vitamins W/ Minerals (Preservision Areds 2) 1 Cap Cap 1 CAP PO QAM Nitroglycerin (Nitrostat) 0.4 Mg Tab 0.4 MG UT PRN PRN for chest pain, BTL Pantoprazole (Protonix) 40 Mg Tab 40 MG PO QAM, #30 TAB Admission Information HPI (per Admitting provider): 89-year-old female who presents to the ER with a chief complaint of chest pain. She reports that around 9:00 last night she developed a left-sided chest discomfort that she describes as an ache. She denies any radiation of the pain into her shoulder, jaw, or arm. No associated shortness of breath, diaphoresis , or nausea. Patient took a nitroglycerin last evening however swallowed it with water. She reports chest pain resolved approximately 20 minutes after ever returned and was mostly persisted throughout the night. In the morning, she took 2 nitroglycerin sublingual, which resolved her pain. No lightheadedness, dizziness, or syncopal events. She denies orthopnea. She has mild chronic BL LE edema, right greater than left, which is unchanged from baseline. Which she has been feeling well recently. She is not very active however is been tolerating her activities of daily living at baseline. No fevers or chills. She denies abdominal pain, vomiting, diarrhea. No urinary symptoms. In the ED, initial troponin is negative and EKG does not show any acute ST changes. Patient was given a full dose aspirin. Of note, patient had been on a baby aspirin in the past however self stopped approximately 6 months ago due to epistaxis. Physical Exam (per Admitting): General Appearance: WD/WN, no apparent distress Head: normocephalic, atraumatic Eyes: normal inspection, EOMI, sclerae normal ENT: hearing grossly normal, + pertinent finding (Mucous membranes moist) Neck: supple, no JVD, trachea midline Respiratory/Chest: lungs clear, normal breath sounds, no respiratory distress Cardiovascular: normal peripheral pulses, + irregularly irregular (Rate controlled), + pertinent finding (+1 edema BLE, R > L) Abdomen/GI: normal bowel sounds, non tender, soft, no organomegaly Extremities/Musculoskelatal: normal inspection, no calf tenderness, normal capillary refill Neurologic/Psych: no motor/sensory deficits, alert, normal mood/affect, oriented x 3 Skin: normal color, warm/dry Hospital Course 89-year-old female presented to the emergency room with complaints of waxing and waning chest pain present for 13 hours prior to arrival. Her pain was described as dull and did not prevent her from sleeping. She took nitroglycerin at home 2 doses which improved her symptoms. She has no known history of LA in the past. She did have a surgical repair of her hiatal hernia last year. She denies any shortness of breath or other symptoms. Of note she has atrial fibrillation but is not on aspirin because of a history of epistaxis. On arrival to the ER blood pressure was 106/83 pulse 90 she was afebrile and oxygenating 96% on room air. Physical exam revealed irregularly irregular rhythm that was non-tachycardic. Lungs were clear to auscultation bilaterally and there was no edema noted. Chest x-ray revealed cardiomegaly without overt pulmonary edema. Lab work was unremarkable with a normal lipase and a normal troponin. Aspirin 3241 dose was given in the ER. An EKG revealed atrial fibrillation with a rate of 102. She was admitted to the hospitalist service and placed on telemetry overnight. Cardiology was consulted and saw her the day of admission. A 2D transthoracic echocardiogram was ordered revealing an ejection fraction 60-65%, mild concentric left ventricular hypertrophy, severely dilated left atrium, moderately dilated right atrium, and aortic valve with moderate calcification and borderline mild aortic stenosis, moderate mitral regurgitation, severe tricuspid regurgitation. She was made n.p.o. after midnight in preparation for a Lexiscan Myoview the following day, however, after a long discussion with the patient and her regarding the atypical nature of the chest discomfort, Dr. Guzman recommended discharge to home with a one-week outpatient follow-up in the office. The patient was instructed on appropriate use of sublingual nitroglycerin and to return to the hospital with any recurrent significant pain prior to the hospital follow-up appointment. The patient and her verbalized understanding with intent to comply. On day of discharge physical exam was unremarkable and the patient was asymptomatic, tolerating p.o., ambulating at baseline, mentating at baseline. She was discharged in stable condition with close PCP and cardiology follow-up. Total time spent on discharge = 60 minutes This includes examination of the patient, discharge planning, medication reconciliation, and communication with other providers[place] [id number] Discharge Instructions Patient Name: BONY SCRUGGS Admit Date: 09/09/1802/20/18 Med Rec: [id number] Att Phy: Stephanie Beard DO Acct ID: [id number] Aditi Phy: Brittni Echeverria D.O. Date: 1925 Fam Phy: Brittni Echeverria D.O. Age: 89 Location: [facility] Sex: F Room/Bed: N281-1 CC: Brittni Echeverria D.O. Sumner, Sabrina M., DO Please take this sheet to every appointment for the next month Discharge Instructions Date of Service Sep 10, 2017. Admission Reason for Admission: Chest Pain Discharge Discharge Diagnosis / Problem: Atypical chest pain Discharge Goals Goal(s): Prevent Disease Progression Activity Recommendations Activity Limitations: per Instructions/Follow-up section . Instructions / Follow-Up Instructions / Follow-Up Please continue all medications as instructed on discharge list. You have a follow-up appointment with Dr. Echeverria on Fri, 09/15 @ 1:45p for follow- up of this hospitalization. You have a follow-up with Dr. Barbour at the [facility] Cardiology clinic in [facility] scheduled for 09/17 @ 10:30m. It was a pleasure taking care of you! Call if you have any questions or problems. You can reach a [facility] hospitalist on duty at [facility] 24 hours a day by calling [phone]. Take care of yourself. Stephanie Beard DO [facility] Hospitalist Current Hospital Diet Patient's current hospital diet: AHA Diet (Heart Healthy), Low Sodium Diet (2gm Na) Discharge Diet Recommended Diet: AHA Diet (Heart Healthy) Procedures Procedures Performed: TTE Pending Studies Studies pending at discharge: no Medical Emergencies . Who to Call and When: Medical Emergencies: If at any time you feel your situation is an emergency, please call 911 immediately. . Non-Emergent Contact Non-Emergency issues call your: Primary Care Provider . . "Provider Documentation" section prepared by Stephanie Beard. . <Electronically signed by Stephanie Beard DO> Signed: 09/10/17 1314 Signed: The status of this report is Signed * If report status is Draft, the document has not been finalized by the responsible provider. Additional Copies To Brittni Echeverria D.O.; Matthew Barbour DO
== END 2017-09-10 14:15 | disposition home or self-care (01) ==
LOC: C.EDB 09:53 → C.MED 11:58 → EDBEDREQ 12:10 → ENRESERV 12:26
PROVIDERS: ADMIT Hospitalist; ATTEND Hospitalist
DX: R07.89 Other chest pain (principal); I48.2 Chronic atrial fibrillation; Z98.890 Other specified postprocedural states; I50.32 Chronic diastolic (congestive) heart failure; I27.20 Pulmonary hypertension, unspecified; Z79.899 Other long term (current) drug therapy; Z96.698 Presence of other orthopedic joint implants; Z90.710 Acquired absence of both cervix and uterus; Z88.0 Allergy status to penicillin; Z88.2 Allergy status to sulfonamides; Z88.8 Allergy status to other drugs, medicaments and biological substances; Z96.653 Presence of artificial knee joint, bilateral